=== PATIENT | male | born 1980 | race Caucasian/White ===

== ENCOUNTER 2021-06-22 14:01 | Observation (INO) | payer OTHER ==
[2021-06-22] MEDS ORDERED: SODIUM CHLORIDE 0.9% 1,000 ML IV STA (15:05)
--- NOTE | 2021-06-22 15:06 | ED ---
General Adult HPI - General Chief complaint: Syncope Stated complaint: syncope Time Seen by Provider: 06/22/21 14:33 Source: patient Mode of arrival: EMS Limitations: no limitations - History of Present Illness Initial comments: 41-year-old male without any significant past medical history presents to the emergency room for a chief complaint of syncope. Patient states that he was walking home from the store and passed out several times. His significant other states he passed out and came to and tried to stand and passed out again. States this happened about 4 times. Patient did not have any chest pain at that time but did have chest pressure radiating to his back a few days ago. Patient is a smoker but does not see a doctor so was not sure of any other medical history. Patient also states he has been sick. He has been coughing and conge sted and is concerned he could've COVID-19 as he has been exposed.Patient has no other complaints at this time including shortness of breath, chest pain, abdominal pain, nausea or vomiting, headache, or visual changes. - Related Data Allergies Allergy/AdvReac Type Severity Reaction Status Date / Time No Known Allergies Allergy Verified 06/22/21 14:08 Review of Systems ROS Statement: Those systems with pertinent positive or pertinent negative responses have been documented in the HPI. ROS Other: All systems not noted in ROS Statement are negative. Past Medical History Past Medical History: No Reported History History of Any Multi-Drug Resistant Organisms: None Reported Past Surgical History: Back Surgery Past Psychological History: No Psychological Hx Reported Smoking Status: Current every day smoker Past Alcohol Use History: None Reported Past Drug Use History: Marijuana General Exam Limitations: no limitations General appearance: alert, in no apparent distress Head exam: Present: atraumatic Eye exam: Present: normal appearance, PERRL, EOMI. Absent: scleral icterus, conjunctival injection ENT exam: Present: normal exam, mucous membranes moist Neck exam: Present: normal inspection, full ROM. Absent: tenderness Respiratory exam: Present: normal lung sounds bilaterally. Absent: respiratory distress, wheezes Cardiovascular Exam: Present: regular rate, normal rhythm, normal heart sounds GI/Abdominal exam: Present: soft, normal bowel sounds. Absent: distended, tenderness Course Vital Signs 06/22/21 14:03 Temperature 97.0 F L Pulse Rate 82 Respiratory 18 Rate Blood Pressure 114/79 O2 Sat by Pulse 100 Oximetry EKG Findings - EKG Comments: EKG Findings:: Normal sinus rhythm, ventricular rate 72, LA interval 142, QTC 492 Medical Decision Making - Medical Decision Making vitals are stable. Patient is well appearing. CBC and CMP are unremarkable. COVID-19 is detected. EKG however did show T-wave inversions in the lateral and inferior leads. Chest x-ray shows no acute cardiopulmonary process. Given significant EKG abnormalities and multiple episodes of syncope patient will be admitted for cardiology consultation and echocardiogram. Case discussed and admission accepted by Dr. Tena - Lab Data Result diagrams: 06/22/21 15:11 06/22/21 15:11 Lab Results 06/22/21 06/22/21 06/22/21 Range/Units 15:11 15:11 15:11 WBC 8.9 (3.8-10.6) k/uL RBC 5.91 H (4.30-5.90) m/uL Hgb 17.0 (13.0-17.5) gm/dL Hct 50.8 (39.0-53.0) % MCV 86.1 (80.0-100.0) fL MCH 28.8 (25.0-35.0) pg MCHC 33.5 (31.0-37.0) g/dL RDW 12.5 (11.5-15.5) % Plt Count 366 (150-450) k/uL MPV 6.9 Neutrophils % 75 % Lymphocytes % 19 % Monocytes % 4 % Eosinophils % 1 % Basophils % 0 % Neutrophils # 6.6 (1.3-7.7) k/uL Lymphocytes # 1.7 (1.0-4.8) k/uL Monocytes # 0.3 (0-1.0) k/uL Eosinophils # 0.1 (0-0.7) k/uL Basophils # 0.0 (0-0.2) k/uL PT 10.5 (9.0-12.0) sec INR 1.0 (<1.2) APTT 22.1 (22.0-30.0) sec D-Dimer 0.37 (<0.60) mg/L FEU Sodium 138 (137-145) mmol/L Potassium 5.1 (3.5-5.1) mmol/L Chloride 102 (98-107) mmol/L Carbon Dioxide 23 (22-30) mmol/L Anion Gap 13 mmol/L BUN 17 (9-20) mg/dL Creatinine 1.14 (0.66-1.25) mg/dL Est GFR (CKD-EPI)AfAm >90 (>60 ml/min/1.73 sqM) Est GFR (CKD-EPI)NonAf 79 (>60 ml/min/1.73 sqM) Glucose 134 H (74-99) mg/dL Calcium 9.8 (8.4-10.2) mg/dL Total Bilirubin 0.5 (0.2-1.3) mg/dL AST 33 (17-59) U/L ALT 34 (4-49) U/L Alkaline Phosphatase 88 (38-126) U/L Troponin I (0.000-0.034) ng/mL Total Protein 7.7 (6.3-8.2) g/dL Albumin 4.7 (3.5-5.0) g/dL Coronavirus (PCR) (Not Detectd) 06/22/21 06/22/21 Range/Units 15:11 15:11 WBC (3.8-10.6) k/uL RBC (4.30-5.90) m/uL Hgb (13.0-17.5) gm/dL Hct (39.0-53.0) % MCV (80.0-100.0) fL MCH (25.0-35.0) pg MCHC (31.0-37.0) g/dL RDW (11.5-15.5) % Plt Count (150-450) k/uL MPV Neutrophils % % Lymphocytes % % Monocytes % % Eosinophils % % Basophils % % Neutrophils # (1.3-7.7) k/uL Lymphocytes # (1.0-4.8) k/uL Monocytes # (0-1.0) k/uL Eosinophils # (0-0.7) k/uL Basophils # (0-0.2) k/uL PT (9.0-12.0) sec INR (<1.2) APTT (22.0-30.0) sec D-Dimer (<0.60) mg/L FEU Sodium (137-145) mmol/L Potassium (3.5-5.1) mmol/L Chloride (98-107) mmol/L Carbon Dioxide (22-30) mmol/L Anion Gap mmol/L BUN (9-20) mg/dL Creatinine (0.66-1.25) mg/dL Est GFR (CKD-EPI)AfAm (>60 ml/min/1.73 sqM) Est GFR (CKD-EPI)NonAf (>60 ml/min/1.73 sqM) Glucose (74-99) mg/dL Calcium (8.4-10.2) mg/dL Total Bilirubin (0.2-1.3) mg/dL AST (17-59) U/L ALT (4-49) U/L Alkaline Phosphatase (38-126) U/L Troponin I <0.012 (0.000-0.034) ng/mL Total Protein (6.3-8.2) g/dL Albumin (3.5-5.0) g/dL Coronavirus (PCR) Detected A (Not Detectd) Disposition Clinical Impression: COVID-19, EKG abnormalities, Syncope Disposition: ADMITTED IP TO THIS HOSP Is patient prescribed a controlled substance at d/c from ED?: No Referrals: None,Stated [Primary Care Provider] - 1-2 days Time of Disposition: 16:55
[2021-06-22 15:31] LABS: Basophils % (A) 0 %; Eosinophils # (A) 0.1 k/uL (0-0.7); Eosinophils % (A) 1 %; HCT 50.8 % (39.0-53.0); Lymphocytes # (A) 1.7 k/uL (1.0-4.8); Lymphocytes % (A) 19 %; MCH 28.8 pg (25.0-35.0); MCHC 33.5 g/dL (31.0-37.0); MCV 86.1 fL (80.0-100.0); Mean Platelet Volume 6.9; Monocytes # (A) 0.3 k/uL (0-1.0); Monocytes % (A) 4 %; Neutrophils # (A) 6.6 k/uL (1.3-7.7); Neutrophils % (A) 75 %; Platelet Count 366 k/uL (150-450); RBC 5.91 m/uL (4.30-5.90); RDW 12.5 % (11.5-15.5); WBC 8.9 k/uL (3.8-10.6)
[2021-06-22 15:41] LABS: Partial Thromboplastin Time 22.1 sec (22.0-30.0); Prothrombin Time 10.5 sec (9.0-12.0)
[2021-06-22 15:47] LABS: ALT 34 U/L (4-49); African American GFR (CKD) >90 (>60 ml/min/1.73 sqM); Albumin 4.7 g/dL (3.5-5.0); Anion Gap 13 mmol/L; Blood Urea Nitrogen 17 mg/dL (9-20); Calcium 9.8 mg/dL (8.4-10.2); Carbon Dioxide 23 mmol/L (22-30); Chloride 102 mmol/L (98-107); Glucose 134 mg/dL (74-99); Non-African American GFR(CKD) 79 (>60 ml/min/1.73 sqM); Sodium 138 mmol/L (137-145); Total Bilirubin 0.5 mg/dL (0.2-1.3); Total Protein 7.7 g/dL (6.3-8.2)
[2021-06-22 15:51] LABS: AST 33 U/L (17-59); Alkaline Phosphatase 88 U/L (38-126); Potassium 5.1 mmol/L (3.5-5.1)
--- NOTE | 2021-06-22 15:52 | XR ---
EXAMINATION TYPE: XR chest 2V DATE OF EXAM: 06/22/2021 COMPARISON: NONE HISTORY: Chest pain TECHNIQUE: Frontal and lateral views of the chest are obtained. FINDINGS: There is no focal air space opacity. No evidence for pneumothorax. No pleural effusion. The cardiac silhouette size is within normal limits. The osseous structures are grossly intact. IMPRESSION: 1. No acute cardiopulmonary process.
[2021-06-22] MEDS ORDERED: ACETAMINOPHEN TAB 325 MG TAB PO PRN (16:55)
[2021-06-22] MEDS ORDERED: NALOXONE 0.4 MG/ML 1 ML VIAL IV PRN (16:55)
[2021-06-22] MEDS ORDERED: ASPIRIN 81 MG PO STA (16:58)
[2021-06-22] MEDS ORDERED: DEXAMETHASONE SOD PHOSPHATE 10 MG/ML 1 ML VIAL IVP STA (16:59)
[2021-06-22] MEDS: SODIUM CHLORIDE 0.9% 1,000 ML IV SCH (17:34)
[2021-06-22] MEDS ORDERED: ALPRAZolam 0.25 MG TAB PO PRN (17:43)
[2021-06-22] MEDS ORDERED: HYDROcodone/APAP 5-325MG 1 EACH TAB PO PRN (17:43)
[2021-06-22 18:18] LABS: C Reactive Protein <0.5 mg/dL (<1.0); LDH 375 U/L (313-618)
--- NOTE | 2021-06-22 18:25 | HP ---
HISTORY AND PHYSICAL DATE OF SERVICE: 06/22/2021 CHIEF COMPLAINT: Covid 19 and syncope. HISTORY OF PRESENT ILLNESS: This 41-year-old gentleman with a past medical history of no significant injury except back surgery, not being followed by any primary physician in the outpatient setting, was complaining of cough and sputum and other symptoms for the last several days. Patient diagnosed with Covid about a week ago. The patient was apparently going to the store and when walking back home, the patient passed out at least 4 times and the patient came to [facility] and was admitted for further evaluation and treatment. There is no history of fever, rigors or chills. No history of headache, loss of consciousness, seizures. The patient is unvaccinated. The initial evaluation showed CBC was within normal limits. Glucose 138. Covid 19 was positive. The pulse ox was also 100%, 98% on room air. The patient also had a chest x-ray which I reviewed personally showed some evidence of increased bronchovascular markings and D- dimer was 0.37 and the patient was admitted for further evaluation and treatment. The EKG interestingly showed diffuse ST-T changes and as well as non-progression R-wave suggestive of possibly myocarditis related to Covid 19. There is no history of fever, rigors, chills at this time. PAST MEDICAL HISTORY: History of back surgery, history of nicotine dependence. MEDICATIONS: Medications prior to admission include none. ALLERGIES: None. FAMILY HISTORY: No history of heart disease or strokes in the family. SOCIAL HISTORY: History of smoking, history of THC. No history of alcohol intake. REVIEW OF SYSTEMS: ENT: No diminished vision. No diminished hearing. CARDIOVASCULAR system: Mentioned earlier. RESPIRATION: As mentioned earlier. GI: No nausea or vomiting. : No dysuria. NERVOUS SYSTEM: No numbness or weakness. ALLERGY/IMMUNOLOGY: No asthma or hayfever. MUSCULOSKELETAL: As mentioned earlier. HEMATOLOGY/ONCOLOGY: No history of anemia. ENDOCRINE: As mentioned earlier. CONSTITUTIONAL: As mentioned earlier. DERMATOLOGY negative. RHEUMATOLOGY negative. PSYCHIATRY negative. PHYSICAL EXAMINATION: Alert and oriented x3. Pulse is 82, blood pressure 114/79, respiration 18, temperature 97 degrees, pulse ox 100 percent on room air. HEENT: Conjunctivae normal. NECK is no JVD. CARDIOVASCULAR: S1, S2. RESPIRATIONS: Breath sounds diminished in the bases. No rhonchi. No crackles. ABDOMEN: Soft, nontender. LEGS: No edema. No swelling. NERVOUS SYSTEM: Higher functions as mentioned earlier. Moves all 4 limbs. No focal motor or sensory deficits. LYMPHATICS: No lymph nodes palpable in the neck, axillae or groin. LAB: Investigations at this time show WBC 8.9, hemoglobin 17, otherwise sodium 130, potassium 5.2. Glucose 134. Covid 19 is positive. EKG personally reviewed. ASSESSMENT: 1. Acute Covid 19 infection with syncope possible myocarditis. 2. Rule out pulmonary embolism. 3. Increased random glucose. 4. History of back surgery. 5. History of nicotine dependence. 6. History of THC. 7. FULL CODE. RECOMMENDATIONS AND DISCUSSION: In this 41-year-old gentleman who presented with multiple complex medical issues, at this time, I recommend to continue current medication. I would recommend 2D echo with Doppler. Complete set of troponins. bedrest. Cardiology consultation. Overall prognosis guarded because of multiple complex medical issues as mentioned earlier. I would also recommend a CT angio because high clinical suspicion even though D- dimer is negative. Prognosis guarded. I also recommend the patient to follow up with primary physician, Cardiology, in the outpatient setting. The patient's family understands and agrees. Further recommendations to follow. MMODL / IJN: [id number] / MTDD
--- NOTE | 2021-06-22 19:28 | CT ---
EXAMINATION TYPE: CT angio chest DATE OF EXAM: 06/22/2021 6:50 PM COMPARISON: None HISTORY: Covid +, syncope CT DLP: 362.6 mGycm Automated exposure control for dose reduction was used. CONTRAST: CTA scan of the thorax is performed with IV Contrast, patient injected with 100 mL of Isovue 300, pul monary embolism protocol. FINDINGS: Significant respiratory motion limits evaluation for small lung nodule and evaluation of the segmenta l and subsegmental pulmonary arteries. LUNGS: The lungs are grossly clear, there is no concerning parenchymal mass or nodule identified. T here is no pleural effusion or pneumothorax seen. The tracheobronchial tree is patent. MEDIASTINUM: There is satisfactory enhancement of the pulmonary artery and its branches, there is no CT evidence for pulmonary embolism. There are no greater than 1 cm hilar or mediastinal lymph nodes. No cardiomegaly or pericardial effusion is seen. Thyroid gland is unremarkable. The upper abdomen is unremarkable. Degenerative changes are seen in the spine. No acute osseous abnormality. IMPRESSION: 1. SUBOPTIMAL OPACIFICATION OF THE SEGMENTAL AND SUBSEGMENTAL PULMONARY ARTERIES DUE TO PATIENT-CANNO T DEFINITELY EXCLUDE A SMALL PULMONARY ARTERIAL EMBOLISM THOUGH NONE ARE SEEN. 2. NO FILLING DEFECTS ARE SEEN IN THE PULMONARY TRUNK, RIGHT OR LEFT PULMONARY ARTERIES OR LOBAR ANTOINE HAZEL. 3. NO EVIDENCE FOR ACUTE INTRATHORACIC ABNORMALITY.
[2021-06-22] MEDS: CHOLECALCIFEROL 25 MCG (1000 IU) TABLET PO SCH (19:57)
[2021-06-22] MEDS: ENOXAPARIN 40 MG/0.4 ML SYRINGE SQ SCH (19:57)
[2021-06-22] MEDS: NICOTINE 14MG/24HR PATCH TRANSDERM SCH (21:32)
[2021-06-23] MEDS: SODIUM CHLORIDE 0.9% 1,000 ML IV SCH ×2 (02:31→20:21)
[2021-06-23] MEDS: DEXAMETHASONE SOD PHOSPHATE 10 MG/ML 1 ML VIAL IVP SCH (08:15)
[2021-06-23] MEDS: ENOXAPARIN 40 MG/0.4 ML SYRINGE SQ SCH (08:16)
[2021-06-23] MEDS: NICOTINE 14MG/24HR PATCH TRANSDERM SCH ×2 (08:16→08:34)
[2021-06-23] MEDS: CHOLECALCIFEROL 25 MCG (1000 IU) TABLET PO SCH ×2 (08:17→18:02)
[2021-06-23 08:27] LABS: Basophils % (A) 0 %; Eosinophils % (A) 0 %; HCT 43.2 % (39.0-53.0); HGB 14.1 gm/dL (13.0-17.5); Lymphocytes # (A) 1.5 k/uL (1.0-4.8); Lymphocytes % (A) 11 %; MCH 28.1 pg (25.0-35.0); MCHC 32.7 g/dL (31.0-37.0); MCV 85.7 fL (80.0-100.0); Mean Platelet Volume 6.9; Monocytes # (A) 0.6 k/uL (0-1.0); Monocytes % (A) 4 %; Neutrophils % (A) 84 %; Platelet Count 379 k/uL (150-450); RBC 5.04 m/uL (4.30-5.90); RDW 12.3 % (11.5-15.5); WBC 14.3 k/uL (3.8-10.6)
[2021-06-23 08:33] VITALS: RESP 16
[2021-06-23 08:33] LABS: African American GFR (CKD) >90 (>60 ml/min/1.73 sqM); Anion Gap 6 mmol/L; Blood Urea Nitrogen 13 mg/dL (9-20); Calcium 9.6 mg/dL (8.4-10.2); Carbon Dioxide 23 mmol/L (22-30); Chloride 107 mmol/L (98-107); Glucose 174 mg/dL (74-99); Non-African American GFR(CKD) >90 (>60 ml/min/1.73 sqM); Potassium 4.2 mmol/L (3.5-5.1); Sodium 136 mmol/L (137-145)
--- NOTE | 2021-06-23 09:31 | P.CRDCN ---
History of Present Illness Consult date: 06/23/21 Chief complaint: Syncope History of present illness: The patient is a 41-year-old gentleman with a past medical history significant for smoking was admitted to the hospital with syncope. He stated that he was in his usual state of health yesterday when he was walking from the store to his home when he suddenly lost his consciousness. No warning symptoms like any warm feeling in the face or any symptoms of dizziness or lightheadedness. He states that this episode did not happen before and that's the first time. Few weeks ago he was experiencing symptoms of chest discomfort. He stated that he woke up from sleep complaining of discomfort in the middle of the chest as a pressure on the chest without any radiation to the arms or neck or shoulders or back. The symptoms of chest discomfort lasted for 24 hours and at that point he did not seek any medical attention. No established history of coronary artery disease or congestive heart failure or cardiac arrhythmia. His major risk factors is smoking only and he smokes cigarettes as well as marijuana. No fever and no chills and no cough or sputum production. The patient was tested positive for COVID-19 infection and currently he is on isolation. He underwent a workup including an EKG showing sinus rhythm with T-wave inversion in the anterolateral leads quite concerning for severe underlying coronary artery disease. Unfortunately there is no old EKG to compare to this one. The troponin is unremarkable. He underwent for some reasons a computed tomography scan of the c hest and the report stated "cannot exclude small pulmonary embolism". No large PE was seen in the pulmonary trunks. Currently the patient is not having any symptoms of chest pain or chest discomfort. Past Medical History Past Medical History: No Reported History History of Any Multi-Drug Resistant Organisms: None Reported Past Surgical History: Back Surgery Past Anesthesia/Blood Transfusion Reactions: No Reported Reaction Past Psychological History: No Psychological Hx Reported Smoking Status: Current every day smoker Past Alcohol Use History: None Reported Past Drug Use History: Marijuana Medications and Allergies Home Medications Medication Instructions Recorded Confirmed Type No Known Home Medications 06/22/21 06/22/21 History Allergies Allergy/AdvReac Type Severity Reaction Status Date / Time No Known Allergies Allergy Verified 06/22/21 18:16 Physical Exam Vitals: Vital Signs Temp Pulse Pulse Resp BP BP BP 06/23/21 08:00 98.0 F 84 16 146/90 157/91 06/23/21 03:18 97.6 F 84 18 06/23/21 02:00 18 06/22/21 23:58 97.6 F 99 18 06/22/21 22:00 104 H 18 06/22/21 21:52 98.1 F 100 18 06/22/21 20:00 97.3 F L 87 18 06/22/21 17:41 97.8 F 61 18 152/94 06/22/21 15:45 84 18 124/82 06/22/21 14:03 97.0 F L 82 18 114/79 BP BP Pulse Ox 06/23/21 08:00 127/77 100 06/23/21 03:18 128/65 96 06/23/21 02:00 06/22/21 23:58 135/74 96 06/22/21 22:00 06/22/21 21:52 141/85 96 06/22/21 20:00 96 06/22/21 17:41 98 06/22/21 15:45 98 06/22/21 14:03 100 Intake and Output 06/22/21 06/23/21 06/23/21 22:59 06:59 14:59 Intake Total 75 624 Balance 75 624 Intake: Intake, IV Titration 75 150 Amount Sodium Chloride 0.9% 1, 75 150 000 ml @ 75 mls/hr IV . [id number] [facility] Rx#:[id number] Oral 474 Other: # Voids 1 Weight 81.647 kg - Constitutional General appearance: no acute distress - Respiratory Respiratory: bilateral: CTA - Cardiovascular Rhythm: regular Heart sounds: normal: S1, S2 Results 06/23/21 07:56 06/23/21 07:56 Cardiac Enzymes 06/22/21 06/22/21 06/22/21 Range/Units 15:11 15:11 17:30 AST 33 (17-59) U/L Lactate Dehydrogenase (313-618) U/L Troponin I <0.012 <0.012 (0.000-0.034) ng/mL 06/22/21 06/22/21 Range/Units 17:30 22:33 AST (17-59) U/L Lactate Dehydrogenase 375 (313-618) U/L Troponin I <0.012 (0.000-0.034) ng/mL Coagulation 06/22/21 Range/Units 15:11 PT 10.5 (9.0-12.0) sec APTT 22.1 (22.0-30.0) sec CBC 06/22/21 06/23/21 Range/Units 15:11 07:56 WBC 8.9 14.3 H (3.8-10.6) k/uL RBC 5.91 H 5.04 (4.30-5.90) m/uL Hgb 17.0 14.1 (13.0-17.5) gm/dL Hct 50.8 43.2 (39.0-53.0) % Plt Count 366 379 (150-450) k/uL Comprehensive Metabolic Panel 06/22/21 06/23/21 Range/Units 15:11 07:56 Sodium 138 136 L (137-145) mmol/L Potassium 5.1 4.2 (3.5-5.1) mmol/L Chloride 102 107 (98-107) mmol/L Carbon Dioxide 23 23 (22-30) mmol/L BUN 17 13 (9-20) mg/dL Creatinine 1.14 0.75 (0.66-1.25) mg/dL Glucose 134 H 174 H (74-99) mg/dL Calcium 9.8 9.6 (8.4-10.2) mg/dL AST 33 (17-59) U/L ALT 34 (4-49) U/L Alkaline Phosphatase 88 (38-126) U/L Total Protein 7.7 (6.3-8.2) g/dL Albumin 4.7 (3.5-5.0) g/dL Current Medications Generic Name Dose Route Start Last Admin Trade Name Freq PRN Reason Stop Dose Admin Acetaminophen 650 mg 06/22/21 16:55 Acetaminophen Tab 325 Mg Tab PO Q6HR PRN Mild Pain or Fever > 100.5 Hydrocodone Bitart/Acetaminophen 1 each 06/22/21 17:43 Hydrocodone/Apap 5-325mg 1 Each Tab PO Q6HR PRN Pain Alprazolam 0.25 mg 06/22/21 17:43 Alprazolam 0.25 Mg Tab PO TID PRN Anxiety Cholecalciferol 25 mcg 06/22/21 17:45 06/23/21 08:17 Cholecalciferol 25 Mcg (1000 Iu) Tablet PO 25 mcg DAILY HAIM Administration Dexamethasone Sodium Phosphate 6 mg 06/23/21 09:00 06/23/21 08:15 Dexamethasone Sod Phosphate 10 Mg/Ml 1 Ml Vial IVP 6 mg DAILY HAIM Administration Enoxaparin Sodium 40 mg 06/22/21 17:45 06/23/21 08:16 Enoxaparin 40 Mg/0.4 Ml Syringe SQ 40 mg DAILY HAIM Administration Sodium Chloride 1,000 mls @ 75 mls/hr 06/22/21 17:00 06/23/21 02:31 Saline 0.9% IV 75 mls/hr .[id number] HAIM Administration Naloxone HCl 0.2 mg 06/22/21 16:55 Naloxone 0.4 Mg/Ml 1 Ml Vial IV Q2M PRN Opioid Reversal Nicotine 1 patch 06/22/21 17:45 06/23/21 08:34 Nicotine 14mg/24hr Patch TRANSDERM Not Given DAILY HAIM Intake and Output 06/22/21 06/23/21 06/23/21 22:59 06:59 14:59 Intake Total 75 624 Balance 75 624 Intake: Intake, IV Titration 75 150 Amount Sodium Chloride 0.9% 1, 75 150 000 ml @ 75 mls/hr IV . [id number] [facility] Rx#:[id number] Oral 474 Other: # Voids 1 Weight 81.647 kg 06/23/21 07:56 06/23/21 07:56 Assessment and Plan Assessment: Assessment #1 syncopal episode #2 abnormal EKG concerning for severe CAD #3 chest discomfort #4 COVID-19 infection #5 significant history of smoking Plan #1 acute coronary event was ruled out. The serial enzymes are unremarkable #2 follow-up on the echocardiogram to assess for wall motion abnormalities #3 further recommendation to follow the echocardiogram #4 continue aspirin #5 start the patient on Toprol-XL #6 watch for arrhythmia Thank you for allowing us participate in his care we will continue following up with the patient
[2021-06-23] MEDS ORDERED: CALCIUM CARBONATE 500 MG CHEWABLE PO PRN (09:49)
[2021-06-23] MEDS ORDERED: ASPIRIN 325 MG TAB PO STA (11:45)
[2021-06-23] MEDS ORDERED: LIDOCAINE 1% INJ 10MG/ML (20 ML MDV) ONE (11:52)
[2021-06-23] MEDS ORDERED: VERAPAMIL 2.5 MG/ML 2 ML AMP ONE (11:52)
[2021-06-23] MEDS: PANTOPRAZOLE 40 MG/10 ML VIAL IVP SCH ×2 (11:54→20:20)
--- NOTE | 2021-06-23 12:00 | ECHOF ---
Referral Reason:syncope MEASUREMENTS -------- HEIGHT: 170.2 cm WEIGHT: 81.6 kg BP: RVIDd: 3.3 cm (< 3.3) IVSd: 1.3 cm (0.6 - 1.1) LVIDd: 4.8 cm (3.9 - 5.3) LVPWd: 1.8 cm (0.6 - 1.1) IVSs: 1.6 cm LVIDs: 3.2 cm LVPWs: 2.2 cm FINDINGS -------- Sinus rhythm. Limited Echo due to Covid 19 exposure. Overall left ventricular systolic function is normal with, an EF between 55 - 60 %. CONCLUSIONS -------- 1. Overall left ventricular systolic function is normal with, an EF between 55 - 60 %. WATER TECHNICIAN: Amirah Young RDCS
[2021-06-23] MEDS ORDERED: IV FLUID CONTINUATION 825 ML IV ONE (12:30)
[2021-06-23] MEDS ORDERED: MIDAZOLAM 2 MG/2 ML VIAL IVP ONE (12:37)
[2021-06-23] MEDS ORDERED: LIDOCAINE 1% INJ 10MG/ML (20 ML MDV) SQ ONE ×2 (12:40→12:41)
[2021-06-23] MEDS: VERAPAMIL SYRINGE (5 MG/10 ML) INTRAARTER ONE ×2 (12:42→12:53)
[2021-06-23] MEDS ORDERED: HEPARIN SODIUM 1,000 UN/ML (10ML VL) IVP ONE (12:43)
[2021-06-23] MEDS ORDERED: IOPAMIDOL-370 125ML BTL INJ ONE (12:54)
[2021-06-23] MEDS ORDERED: RX INFO: IV CONTRAST WAS GIVEN 1 EACH MISC MISCELLANE PRN (13:01)
[2021-06-23] MEDS ORDERED: SODIUM CHLORIDE 0.9% 1,000 ML IV SCH (13:15)
--- NOTE | 2021-06-23 14:23 | CC ---
CARDIAC CATHETERIZATION REPORT DATE OF PROCEDURE: 06/23/2021 PERFORMING PHYSICIAN: Titi John M.D. PROCEDURES PERFORMED: 1. Selective right and left coronary angiogram. 2. Left heart catheterization. INDICATION: This is a pleasant 41-year-old gentleman who was admitted to the hospital with chest discomfort and syncope. He underwent an EKG which showed abnormalities concerning for severe underlying coronary artery disease. The EKG showed T-wave inversion and biphasic T-waves in the anterolateral leads. APPROACH: Right radial artery. COMPLICATIONS: None. LEVEL OF SEDATION: Moderate, with sedation length of 12 minutes. PROCEDURE DESCRIPTION: After obtaining informed consent, the patient was brought to the cardiac cathode maker. The right radial artery was cannulated using micropuncture technique under ultrasound guidance. The micropuncture wire passed easily. Then I placed Dictation ends here abruptly. MMODL / IJN: [id number] /
--- NOTE | 2021-06-23 14:38 | CC ---
CARDIAC CATHETERIZATION REPORT DATE OF PROCEDURE: 06/23/2021 PERFORMING PHYSICIAN: Titi John M.D. PROCEDURES PERFORMED: 1. Selective right and left coronary angiogram. 2. Left heart catheterization. INDICATION: This is a 41-year-old gentleman with significant history of smoking who was admitted to the hospital with syncope concerning for cardiac syncope. He also was experiencing chest discomfort concerning for angina. He underwent an EKG which showed T-wave inversion and biphasic T-wave across the chest leads. In light of that and to rule out severe CAD, heart catheterization was advised. APPROACH: Right radial artery. COMPLICATIONS: None. LEVEL OF SEDATION: Moderate, with sedation length of 12 minutes. PROCEDURE DESCRIPTION: After obtaining informed consent, the patient was brought to the cardiac crime laboratory analyst. The right radial artery was cannulated using micropuncture technique. The micropuncture wire passed easily. Then I placed a 6-Serbian sheath in the right radial artery. I gave the patient 2 mg of verapamil IA and 6000 units of heparin IV. Selective right and left coronary angiogram was performed with JR4 and JL3.5 catheters. Left heart catheterization was performed using the JR4 catheter, which crossed the aortic valve. Then I did pull back across the valve. The procedure was completed without any complication. SELECTIVE CORONARY ANGIOGRAM: 1. The right coronary artery is a large-caliber vessel and it is a dominant vessel. The RCA has mild disease proximally. The mid RCA appeared to have mild disease as well. The RCA distally appeared to have mild disease as well and bifurcates into PDA and PLV branches. The PLV branch gives collateral which seems to be a bridging collateral to the left circumflex distally. 2. The left main is a large left main. Angiographically normal. It trifurcates into left circumflex, ramus intermedius and left anterior descending artery. 3. The left circumflex is a large-caliber vessel. It is a nondominant vessel. The proximal left circumflex appeared to have mild disease only. It gives rise to the first obtuse marginal branch, which appeared to have mild disease only, and the left circumflex at that segment appeared to make a turn and distally is occluded and fills by collaterals from the right coronary artery. 4. The ramus intermedius is a large-caliber vessel and seems to have mild disease only. 5. The LAD. The proximal LAD appeared to be angiographically normal. It gives rise to the first and second diagonal branches; both appeared to have mild disease only. The mid and distal LAD appeared to be angiographically normal. 6. HEMODYNAMICS: The LVEDP was 10 to 12 mmHg without significant gradient across the aortic valve. CONCLUSION: 1. Occluded distal left circumflex. The distal left circumflex fills by collateral which seems to be a bridging collateral from the right coronary artery. 2. Normal left-sided filling pressure. POST-PROCEDURE MANAGEMENT: 1. Maximize medical treatment. 2. Aggressive cholesterol control. 3. Risk factor modifications. 4. Follow up with the patient. MMGARY / IJN: [id number] /
[2021-06-23] MEDS: ASCORBIC ACID 500 MG TAB PO SCH ×2 (16:22→20:20)
[2021-06-23] MEDS: ZINC SULFATE 220 MG CAP PO SCH (18:02)
--- NOTE | 2021-06-23 18:38 | PN ---
PROGRESS NOTE DATE OF SERVICE: 06/23/2021 This 41-year-old gentleman who was admitted with acute COVID-19 infection and syncope has possibly myocarditis. Patient had diffuse ST-T segment changes. Cardiology saw the patient and a 2D echo with Doppler showed ejection fraction about 55% to 60%, which was limited. Cardiology performed cardiac catheterization. The patient also had some minimal chest discomfort. The cardiac cath showed occluded distal left circumflex. Collaterals are seen. Maximized medical treatment was recommended. Patient is being closely monitored. There is no history of any fever, rigors or chills. Past medical history reviewed. REVIEW OF SYSTEMS: CARDIOVASCULAR SYSTEM: As mentioned earlier. RESPIRATION: As mentioned earlier. GI: As mentioned earlier. : No dysuria. NERVOUS SYSTEM: No numbness, weakness. CURRENT MEDICATIONS: Reviewed. They include Tylenol, [place], Xanax, vitamin C, Tums, vitamin D3. Doses and other medications are reviewed. PHYSICAL EXAMINATION: Patient alert and oriented x3. Pulse 47, blood pressure 158/83, respirations 16, temperature normal, pulse ox 98% on room air. HEENT: Conjunctivae normal. NECK: No jugular venous distention. CARDIOVASCULAR: S1, S2 muffled. RESPIRATION: Breath sounds diminished at the bases. A few scattered rhonchi. ABDOMEN: Soft, nontender. LEGS: No edema. No swelling. NERVOUS SYSTEM: No focal deficit. LAB STUDIES: WBC 14.3, hemoglobin 14.1. Sodium 136, potassium 4.2. ASSESSMENT: 1. Acute COVID-19 infection with syncope. Rule out myocarditis or cardiac arrhythmia. 2. Status post cardiac catheterization showing occluded distal left circumflex, collaterals; possible coronary disease. On medical treatment. 3. Increased random glucose. 4. Pulmonary embolism ruled out. 5. History of back surgery. 6. History of nicotine dependence. 7. History of THC. 8. FULL CODE. RECOMMENDATIONS AND DISCUSSION: I recommend to continue current medications, continue with the monitoring, symptomatic treatment. I recommend to follow closely with Cardiology. Maximum medical treatment. Usual medications of COVID-19. The CT angio was personally reviewed by me; it showed currently no evidence of any pulmonary embolism. Patient also has no evidence of any pneumonia, either. The prognosis is guarded. Further recommendations to follow. See orders for further details. Recommend close followup with primary physician in the outpatient setting. MMODL / IJN: [id number] /
[2021-06-24] MEDS: SODIUM CHLORIDE 0.9% 1,000 ML IV SCH (07:01)
[2021-06-24] MEDS ORDERED: METOPROLOL SUCCINATE (ER) 25 MG TAB.ER.24H PO SCH (09:00)
[2021-06-24] MEDS: NICOTINE 14MG/24HR PATCH TRANSDERM SCH ×2 (09:45→11:28)
[2021-06-24] MEDS: CHOLECALCIFEROL 25 MCG (1000 IU) TABLET PO SCH (09:45)
[2021-06-24] MEDS: ZINC SULFATE 220 MG CAP PO SCH (09:45)
[2021-06-24] MEDS: ASCORBIC ACID 500 MG TAB PO SCH (09:45)
[2021-06-24] MEDS: ENOXAPARIN 40 MG/0.4 ML SYRINGE SQ SCH (09:46)
[2021-06-24] MEDS: DEXAMETHASONE SOD PHOSPHATE 10 MG/ML 1 ML VIAL IVP SCH (09:46)
[2021-06-24] MEDS: PANTOPRAZOLE 40 MG/10 ML VIAL IVP SCH (09:46)
--- NOTE | 2021-06-24 09:51 | P.CONS ---
History of Present Illness - Reason for Consult Consult date: 06/23/21 covid infection Requesting physician: Mariana Tena - Chief Complaint passed out x 1 day - History of Present Illness History of present illness : Patient is a 41-year male who is not recently for the COVID-19 patient was brought into the ER yesterday afternoon after apparently the patient did have a syncopal episode the patient said he was walking home from the store and passed out several times patient tried to stand and passed out again at that happened about 4 times for the patient was brought to the hospital for further evaluation but denies having any chest pain or any palpitation patient denies having any URI symptoms no shortness of breath no cough or sputum production no abdominal pain or diarrhea patient on presentation the hospital was afebrile patient was not hypoxic or need for supplemental oxygen did have a normal white count with no lymphopenia creatinine was normal he was observed normal he did have positive Covid test patient did have a chest x-ray that was negative for acute infiltrate CT angiogram was suboptimal no filling defect and lungs were clear no evidence of any gross clot opacity patient did have a cardiac catheterization with evidence of occluded distal left circumflex infectious he was consulted because of his positive Covid testing Review of system: CONSTITUTIONAL: Positive for weakness denies fever. EYES: No complaint. ENT: No complaint. RESPIRATORY: No complaint. CARDIOVASCULAR: As per history of present illness. GENITOURINARY: No complaint. GASTROINTESTINAL: No complaint. MUSCULOSKELETAL: No complaint. INTEGUMENTARY: No complaint. PSYCHOLOGIC: No complaint. ENDOCRINE: No complaint. NEUROLOGIC: No complaint. Past medical history : Reviewed, documented below Past surgical history : Reviewed, documented below Social history: Reviewed, documented below Medications: Reviewed, as documented below EXAMINATION: Vital sigans= Reviewed and documented below GENERAL DESCRIPTION: Middle-aged male lying in bed, no distress. No tachypnea or accessory muscle of respiration use. HEENT: Shows Pallor , no scleral icterus. Oral mucous membrane is dry. NECK: Trachea central, no thyromegaly. LUNGS: Unlabored breathing. Clear to auscultation anteriorly. No wheeze or crackle. HEART: S1, S2, regular rate and rhythm. ABDOMEN: Soft, no tenderness , guarding or rigidity EXTREMITIES: No edema of feet. SKIN: No rash, no masses palpable. NEUROLOGICAL: The patient is awake, alert, oriented x3, mood and affect normal. LABS AND RADIOLOGY: Reviewed results see below Assessment : Patient presented to hospital with multiple syncopal episodes more likely because of his cardiac etiology the patient also have a positive Covid test however the patient do not have any respiratory symptoms the patient is not febrile no hypoxemia chest x-ray and CT scan of the chest did not show any infiltrate with a question of possible false-positive versus Covid infection the patient will be cleared as evidence of any active infection Plan: 1-no need for steroids or remdesivir as the patient not hypoxic 2-May continue Lovenox zinc and ascorbic acid 3-droplet isolation We will follow on clinical condition and cultures to further adjust medication if needed Thank you for this consultation we will follow the patient along with you Past Medical History Past Medical History: No Reported History History of Any Multi-Drug Resistant Organisms: None Reported Past Surgical History: Back Surgery Past Anesthesia/Blood Transfusion Reactions: No Reported Reaction Past Psychological History: No Psychological Hx Reported Smoking Status: Current every day smoker Past Alcohol Use History: None Reported Past Drug Use History: Marijuana Medications and Allergies Home Medications Medication Instructions Recorded Confirmed Type No Known Home Medications 06/22/21 06/22/21 History Allergies Allergy/AdvReac Type Severity Reaction Status Date / Time No Known Allergies Allergy Verified 06/22/21 18:16 Physical Exam Vitals: Vital Signs Temp Pulse Pulse Pulse Resp BP BP 06/23/21 13:46 95 166/91 06/23/21 13:31 86 153/82 06/23/21 13:01 155/89 06/23/21 11:44 96.2 F L 72 16 06/23/21 08:00 98.0 F 84 16 06/23/21 03:18 97.6 F 84 18 06/23/21 02:00 18 06/22/21 23:58 97.6 F 99 18 06/22/21 22:00 104 H 18 06/22/21 21:52 98.1 F 100 18 06/22/21 20:00 97.3 F L 87 18 06/22/21 17:41 97.8 F 61 18 152/94 06/22/21 15:45 84 18 124/82 BP BP BP BP Pulse Ox 06/23/21 13:46 06/23/21 13:31 06/23/21 13:01 06/23/21 11:44 134/76 98 06/23/21 08:00 146/90 157/91 127/77 100 06/23/21 03:18 128/65 96 06/23/21 02:00 06/22/21 23:58 135/74 96 06/22/21 22:00 06/22/21 21:52 141/85 96 06/22/21 20:00 96 06/22/21 17:41 98 06/22/21 15:45 98 Intake and Output 06/23/21 06/23/21 06/23/21 06:59 14:59 22:59 Intake Total 624 365 Balance 624 365 Intake: IV 125 Intake, IV Titration 150 Amount Sodium Chloride 0.9% 1, 150 000 ml @ 75 mls/hr IV . [id number] [facility] Rx#:[id number] Oral 474 240 Other: # Voids 1 0 Results CBC & Chem 7: 06/23/21 07:56 06/23/21 07:56 Labs: Abnormal Lab Results - Last 24 Hours (Table) 06/22/21 06/22/21 06/23/21 Range/Units 15:11 17:30 07:56 WBC 14.3 H (3.8-10.6) k/uL Neutrophils # 12.0 H (1.3-7.7) k/uL Sodium (137-145) mmol/L Glucose 134 H (74-99) mg/dL Ferritin 341.0 H (22.0-322.0) ng/mL 06/23/21 Range/Units 07:56 WBC (3.8-10.6) k/uL Neutrophils # (1.3-7.7) k/uL Sodium 136 L (137-145) mmol/L Glucose 174 H (74-99) mg/dL Ferritin (22.0-322.0) ng/mL
[2021-06-24] MEDS ORDERED: ATORVASTATIN 40 MG TAB PO SCH (11:15)
[2021-06-24] MEDS ORDERED: ASPIRIN 81 MG PO SCH (11:15)
[2021-06-24 12:29] VITALS: BP 152/96; PULSE 73; TEMP 97.8
--- NOTE | 2021-06-24 13:39 | P.PN ---
Subjective HISTORY OF PRESENTING ILLNESS The patient is a 41-year-old gentleman with a past medical history significant for smoking was admitted to the hospital with syncope. He stated that he was in his usual state of health yesterday when he was walking from the store to his home when he suddenly lost his consciousness. No warning symptoms like any warm feeling in the face or any symptoms of dizziness or lightheadedness. He states that this episode did not happen before and that's the first time. Few weeks ago he was experiencing symptoms of chest discomfort. He stated that he woke up from sleep complaining of discomfort in the middle of the chest as a pressure on the chest without any radiation to the arms or neck or shoulders or back. The symptoms of chest discomfort lasted for 24 hours and at that point he did not seek any medical attention. No established history of coronary artery disease or congestive heart failure or cardiac arrhythmia. His major risk factors is smoking only and he smokes cigarettes as well as marijuana. No fever and no chills and no cough or sputum production. The patient was tested positive for COVID-19 infection and currently he is on isolation. He underwent a workup including an EKG showing sinus rhythm with T-wave inversion in the anterolateral leads quite concerning for severe underlying coronary artery disease. Unfortunately there is no old EKG to compare to this one. The troponin is unremarkable. He underwent for some reasons a computed tomography scan of the chest and the report stated "cannot exclude small pulmonary embolism". No large PE was seen in the pulmonary trunks. Currently the patient is not having any symptoms of chest pain or chest discomfort. 06/24 Patient denies any chest pain or pressure. No further lightheaded episodes. No significant events on telemetry. He did undergo heart catheterization yesterday which showed occlusion of the distal circumflex with collaterals from right to left. He is not having any significant angina-type symptoms. He was performed which shows preserved EF. PHYSICAL EXAMINATION Vital signs reviewed. CONSTITUTIONAL: No apparent distress. HEENT: Head is normocephalic. Pupils are equal, round. Sclerae anicteric. Mucous membranes of the mouth are moist. No JVD. No carotid bruit. CHEST EXAMINATION: Lungs are clear to auscultation. No chest wall tenderness is noted on palpation or with deep breathing. HEART EXAMINATION: Regular rate and rhythm. S1, S2 heard. No murmurs, gallops or rub. ABDOMEN: Soft, nontender. Positive bowel sounds. EXTREMITIES: 2+ peripheral pulses, no lower extremity edema and no calf tenderness. NEUROLOGIC EXAMINATION: Patient is awake, alert and oriented x3. Assessment #1 syncopal episode with multiple syncopal episodes in the past #2 abnormal EKG #3 chest discomfort #4 COVID-19 infection #5 significant history of smoking #6 CAD with occluded left circumflex with right to left collaterals Plan Continue with current medical regimen with aspirin, statin, beta belén. Discussed findings of occluded left circumflex with what appears to be right to left collaterals with patient. He is not having any angina-type symptoms currently and continue with medical therapy. Given underlying CAD and multiple syncopal episodes however would recommend 30 day event monitor on discharge and this may be performed an outpatient basis. Patient appears stable for discharge home. Follow-up in office in 1 week. Tobacco cessation. Objective - Vital Signs Vital signs: Vital Signs Temp 97.8 F 06/24/21 12:00 Pulse 73 06/24/21 12:00 Resp 16 06/24/21 12:00 BP 152/96 06/24/21 12:00 Pulse Ox 98 06/24/21 12:00 Intake & Output 06/23/21 06/24/21 06/24/21 18:59 06:59 18:59 Intake Total 725 240 Output Total 450 Balance 275 240 Weight 111.5 kg Intake: IV 125 Oral 600 240 Output: Urine 450 Other: # Voids 0 1 2 # Bowel Movements 1 - Labs CBC & Chem 7: 06/23/21 07:56 06/23/21 07:56
--- NOTE | 2021-06-24 17:48 | PN ---
PROGRESS NOTE DATE OF SERVICE: 06/24/2021 REASON FOR FOLLOWUP: Positive COVID test. INTERVAL HISTORY: The patient was seen on rounds this afternoon. The patient has been afebrile. The patient is currently breathing comfortably on room air. The patient denies having any chest pain, shortness of breath. Minimal cough. No abdominal pain. No diarrhea. The patient reported that he did have some URI and minimal respiratory symptoms a few weeks ago. PHYSICAL EXAMINATION: Blood pressure 152/96, pulse of , temperature 97.8. He is 98% on room air. General description is a middle-aged male lying in bed in no distress. Respiratory system: Unlabored breathing, clear to auscultation anteriorly. Heart S1, S2. Regular rate and rhythm. Abdomen soft, no tenderness. LABS: No new labs have been obtained today. DIAGNOSTIC IMPRESSION AND PLAN: Patient with positive COVID test in this patient; more likely recovering from recent COVID infection, currently with no evidence of any COVID pneumonia. He will not need any specific treatment for it. He has been advised to get COVID vaccination 90 days from now to prevent recurrent infection. Questions and concerns were answered. MMODL / IJN: [id number] /
--- NOTE | 2021-06-24 20:09 | DS ---
DISCHARGE SUMMARY DATE OF SERVICE: 06/24/2021 FINAL DIAGNOSES: 1. Acute Covid-19 infection with syncope, possible myocarditis versus cardiac arrhythmia. 2. Status post cardiac cath showing occluded distal left circumflex, collaterals, possibly CAD on medical treatment. 3. Increased random glucose. 4. Pulmonary embolism ruled out. 5. History of back surgery. 6. History of nicotine dependence. 7. History of THC. 8. FULL CODE. DISCHARGE DISPOSITION: The patient will be discharged in stable condition with guarded prognosis. HISTORY OF PRESENT ILLNESS: This 41-year-old gentleman with a past medical history of multiple medical problems was admitted with acute Covid-19 infection. The patient also had episode of syncope. Cardiac catheterization showed occluded left circumflex. Medical treatment recommended, possibility of myocarditis and cardiac arrhythmia also noted. The patient had a diffuse ST-T changes and T inversion in the EKG, but the 2D echo showed normal ejection fraction. Seen by multiple consultants. The patient is extremely keen on going home. Discharge cleared by Cardiology. Infectious Disease also saw the patient during the hospitalization. Dr. Estrada has recommended continue the current medication, treat symptomatically. EXAM: Vitals stable. Cardiovascular: S1, S2. Abdomen soft. Nervous system: No focal deficits. DISCHARGE DIET: Cardiac diet. FOLLOWUP: Follow up with Dr. Vasques in 2-3 days. Follow up with Cardiology as recommended. DISCHARGE MEDICATIONS: 1. Aspirin 81 mg p.o. daily. 2. Habitrol 14 daily. 3. Lipitor 40 mg daily. 4. Zinc 220 mg p.o. daily. 5. Metoprolol 25 mg p.o. daily. 6. Vitamin C 500 mg p.o. b.i.d. 7. Vitamin D3 50 mg mcg p.o. daily. Activity limited until followup. The patient discharged in stable condition with guarded prognosis. MMODL / IJN: [id number] /
== END 2021-06-24 16:00 | disposition home or self-care (01) ==
LOC: EC 14:01 → 3SCARD 16:57
PROVIDERS: ADMIT Hospitalist; ATTEND Hospitalist
DX: U07.1 COVID-19 (principal); R55 Syncope and collapse; R07.89 Other chest pain; I25.10 Atherosclerotic heart disease of native coronary artery without angina pectoris; I25.82 Chronic total occlusion of coronary artery; F17.210 Nicotine dependence, cigarettes, uncomplicated; R05.9 Cough, unspecified; Z71.6 Tobacco abuse counseling; Z98.890 Other specified postprocedural states
CPT/HCPCS: 93458; 99285; 96376; 96361; 96374; 96375; 36415; 93005; 93308; 85379; 80053; 80048; 82728; 83615; 84484; 85025 ×2; 85610; 85730; 86140; 87635; 71046; 71275; G0378 ×3; C1894; J2250; J1100 ×3; J2001; J1650 ×3; J1644; C9113 ×2; Q9967 ×2

== ENCOUNTER 2022-05-23 09:05 | Emergency (ER) | payer OTHER ==
[2022-05-23 09:14] VITALS: RESP 18; TEMP 97.4
--- NOTE | 2022-05-23 09:39 | ED ---
General Adult HPI - General Chief complaint: Extremity Injury, Upper Stated complaint: lt shoulder injury Time Seen by Provider: 05/23/22 09:20 Source: patient, RN notes reviewed Mode of arrival: ambulatory Limitations: no limitations, physical limitation - History of Present Illness Initial comments: 41-year-old male with reported medical history of HI coming in today for left shoulder pain 2 weeks. Patient reports he was seen in ED and was told he had a shoulder dislocation that reduced on its own. He was evaluated for this 2 weeks ago, but did not follow up with an orthopedist. This morning he woke up and his fifth left digit was numb, denies traumatic event previous injury. Patient also reports a bout of left chest pain that stared last night that is constant and burning, although he does not feel the pain today. He did not take anything for relief. Patient denies fever, chills, shortness of breath, pleuritic chest pain, abdominal pain, nausea, vomiting, diarrhea, weakness, dizziness. - Related Data Previous Rx's Medication Instructions Recorded Ascorbic Acid [Vitamin C] 500 mg PO BID 30 Days #60 tab 06/24/21 Aspirin 81 mg PO DAILY 30 Days #30 tab 06/24/21 Atorvastatin [Lipitor] 40 mg PO DAILY 30 Days #30 tab 06/24/21 Cholecalciferol [Vitamin D3 (25 50 mcg PO DAILY 30 Days #60 tablet 06/24/21 Mcg = 1000 Iu)] Metoprolol Succinate (ER) [Toprol 25 mg PO DAILY 30 Days #30 tab 06/24/21 XL] Nicotine 14Mg/24Hr Patch [Habitrol] 1 patch TRANSDERM DAILY #20 patch 06/24/21 Zinc Sulfate [Orazinc] 220 mg PO DAILY 30 Days #30 cap 06/24/21 Metoprolol Succinate (ER) [Toprol 25 mg PO DAILY #14 tab 05/23/22 XL] Allergies Allergy/AdvReac Type Severity Reaction Status Date / Time No Known Allergies Allergy Verified 05/23/22 09:13 Review of Systems ROS Statement: Those systems with pertinent positive or pertinent negative responses have been documented in the HPI. ROS Other: All systems not noted in ROS Statement are negative. Past Medical History Past Medical History: No Reported History History of Any Multi-Drug Resistant Organisms: None Reported Past Surgical History: Back Surgery Past Anesthesia/Blood Transfusion Reactions: No Reported Reaction Past Psychological History: No Psychological Hx Reported Smoking Status: Current every day smoker Past Alcohol Use History: None Reported Past Drug Use History: Marijuana General Exam Limitations: no limitations, physical limitation General appearance: alert Head exam: Present: atraumatic, normocephalic Eye exam: Present: normal appearance, PERRL, EOMI. Absent: scleral icterus, conjunctival injection, periorbital swelling ENT exam: Present: normal exam, mucous membranes moist Neck exam: Present: normal inspection. Absent: tenderness, meningismus, lymphadenopathy Respiratory exam: Present: normal lung sounds bilaterally. Absent: respiratory distress, wheezes, rales, rhonchi, stridor Cardiovascular Exam: Present: regular rate, normal rhythm, tachycardia, normal heart sounds. Absent: systolic murmur, diastolic murmur, rubs, gallop, clicks GI/Abdominal exam: Present: soft, normal bowel sounds. Absent: distended, tenderness, guarding, rebound, rigid Extremities exam: Present: normal inspection, full ROM, normal capillary refill. Absent: tenderness, pedal edema, joint swelling, calf tenderness Left General: Present: other (LUE without erythema, edema, eccyhmosis, or obvious deformity. Reproduceable pain with movement. Full range of motion, 5/5 strength bilaterally. 2+ radial pulses bilaterally. NVI. ) Course Vital Signs 05/23/22 05/23/22 05/23/22 09:10 10:38 11:00 Temperature 97.4 F L Pulse Rate 100 Respiratory 18 Rate Blood Pressure 190/131 187/132 172/117 O2 Sat by Pulse 98 Oximetry 05/23/22 11:28 Temperature Pulse Rate 74 Respiratory 18 Rate Blood Pressure 159/110 O2 Sat by Pulse 96 Oximetry - Reevaluation(s) Reevaluation #1: 05/23/22 11:15; Pt reevaluated and updated on results. EKG Findings - EKG Comments: EKG Findings:: Rate 92 bpm, NSR. RI 143, QRS 111ms. Left axis deviation, non- specific t-wave inversion Medical Decision Making - Medical Decision Making 41 year old male coming in to ED for L shoulder pain and chest pain. Patients initial blood pressure was elevated, and patient was given 20mg of labetolol and toradol injection. Patient had a cardiac workup done during the course of the ED. I interpreted the following EKG 92 bpm, NSR. I interpreted the following CXR negative for acute process, negative for L shoulder dislocation. Labs remarkable for WBC 7.2, HGB 18.0, BMP unremarkable, troponin negative. Discussed the results with the patient, all questions were answered. Patient given a prescription for metoprolol. Patient was encouraged to return to the ER if worsening symptoms of chest pain or shortness of breath. Case discussed with Dr. Delatorre. - Lab Data Result diagrams: 05/23/22 10:00 05/23/22 10:00 Lab Results 05/23/22 05/23/22 05/23/22 Range/Units 10:00 10:00 10:00 WBC 7.2 (3.8-10.6) k/uL RBC 6.05 H (4.30-5.90) m/uL Hgb 18.0 H (13.0-17.5) gm/dL Hct 51.3 (39.0-53.0) % MCV 84.7 (80.0-100.0) fL MCH 29.7 (25.0-35.0) pg MCHC 35.0 (31.0-37.0) g/dL RDW 13.1 (11.5-15.5) % Plt Count 342 (150-450) k/uL MPV 6.8 Neutrophils % 60 % Lymphocytes % 29 % Monocytes % 4 % Eosinophils % 5 % Basophils % 1 % Neutrophils # 4.3 (1.3-7.7) k/uL Lymphocytes # 2.1 (1.0-4.8) k/uL Monocytes # 0.3 (0-1.0) k/uL Eosinophils # 0.4 (0-0.7) k/uL Basophils # 0.1 (0-0.2) k/uL PT 10.5 (9.0-12.0) sec INR 1.0 (<1.2) APTT 26.3 (22.0-30.0) sec Sodium 139 (137-145) mmol/L Potassium 4.5 (3.5-5.1) mmol/L Chloride 103 (98-107) mmol/L Carbon Dioxide 27 (22-30) mmol/L Anion Gap 9 mmol/L BUN 16 (9-20) mg/dL Creatinine 0.72 (0.66-1.25) mg/dL Est GFR (CKD-EPI)AfAm >90 (>60 ml/min/1.73 sqM) Est GFR (CKD-EPI)NonAf >90 (>60 ml/min/1.73 sqM) Glucose 128 H (74-99) mg/dL Calcium 9.4 (8.4-10.2) mg/dL Magnesium 2.1 (1.6-2.3) mg/dL Total Bilirubin 0.5 (0.2-1.3) mg/dL AST 27 (17-59) U/L ALT 35 (4-49) U/L Alkaline Phosphatase 92 (38-126) U/L Troponin I (0.000-0.034) ng/mL Total Protein 7.4 (6.3-8.2) g/dL Albumin 4.9 (3.5-5.0) g/dL 05/23/22 Range/Units 10:00 WBC (3.8-10.6) k/uL RBC (4.30-5.90) m/uL Hgb (13.0-17.5) gm/dL Hct (39.0-53.0) % MCV (80.0-100.0) fL MCH (25.0-35.0) pg MCHC (31.0-37.0) g/dL RDW (11.5-15.5) % Plt Count (150-450) k/uL MPV Neutrophils % % Lymphocytes % % Monocytes % % Eosinophils % % Basophils % % Neutrophils # (1.3-7.7) k/uL Lymphocytes # (1.0-4.8) k/uL Monocytes # (0-1.0) k/uL Eosinophils # (0-0.7) k/uL Basophils # (0-0.2) k/uL PT (9.0-12.0) sec INR (<1.2) APTT (22.0-30.0) sec Sodium (137-145) mmol/L Potassium (3.5-5.1) mmol/L Chloride (98-107) mmol/L Carbon Dioxide (22-30) mmol/L Anion Gap mmol/L BUN (9-20) mg/dL Creatinine (0.66-1.25) mg/dL Est GFR (CKD-EPI)AfAm (>60 ml/min/1.73 sqM) Est GFR (CKD-EPI)NonAf (>60 ml/min/1.73 sqM) Glucose (74-99) mg/dL Calcium (8.4-10.2) mg/dL Magnesium (1.6-2.3) mg/dL Total Bilirubin (0.2-1.3) mg/dL AST (17-59) U/L ALT (4-49) U/L Alkaline Phosphatase (38-126) U/L Troponin I <0.012 (0.000-0.034) ng/mL Total Protein (6.3-8.2) g/dL Albumin (3.5-5.0) g/dL Disposition Clinical Impression: Left shoulder pain, Hypertension Disposition: HOME SELF-CARE Condition: Stable Additional Instructions: Return to the ED if worsening symptoms or if symptoms persist. Prescriptions: Metoprolol Succinate (ER) [Toprol XL] 25 mg PO DAILY #14 tab Is patient prescribed a controlled substance at d/c from ED?: No Referrals: None,Stated [Primary Care Provider] - 1-2 days Decision Time: 11:23
[2022-05-23 10:08] LABS: Basophils # (A) 0.1 k/uL (0-0.2); Basophils % (A) 1 %; Eosinophils # (A) 0.4 k/uL (0-0.7); Eosinophils % (A) 5 %; HCT 51.3 % (39.0-53.0); Lymphocytes # (A) 2.1 k/uL (1.0-4.8); Lymphocytes % (A) 29 %; MCH 29.7 pg (25.0-35.0); MCV 84.7 fL (80.0-100.0); Mean Platelet Volume 6.8; Monocytes # (A) 0.3 k/uL (0-1.0); Monocytes % (A) 4 %; Neutrophils # (A) 4.3 k/uL (1.3-7.7); Neutrophils % (A) 60 %; Platelet Count 342 k/uL (150-450); RBC 6.05 m/uL (4.30-5.90); RDW 13.1 % (11.5-15.5); WBC 7.2 k/uL (3.8-10.6)
[2022-05-23 10:19] LABS: ALT 35 U/L (4-49); AST 27 U/L (17-59); African American GFR (CKD) >90 (>60 ml/min/1.73 sqM); Albumin 4.9 g/dL (3.5-5.0); Alkaline Phosphatase 92 U/L (38-126); Anion Gap 9 mmol/L; Blood Urea Nitrogen 16 mg/dL (9-20); Calcium 9.4 mg/dL (8.4-10.2); Carbon Dioxide 27 mmol/L (22-30); Chloride 103 mmol/L (98-107); Glucose 128 mg/dL (74-99); Magnesium 2.1 mg/dL (1.6-2.3); Non-African American GFR(CKD) >90 (>60 ml/min/1.73 sqM); Potassium 4.5 mmol/L (3.5-5.1); Sodium 139 mmol/L (137-145); Total Bilirubin 0.5 mg/dL (0.2-1.3); Total Protein 7.4 g/dL (6.3-8.2)
[2022-05-23 10:28] LABS: Partial Thromboplastin Time 26.3 sec (22.0-30.0); Prothrombin Time 10.5 sec (9.0-12.0)
[2022-05-23] MEDS ORDERED: LABETALOL 5 MG/ML VIAL MDV IVP STA ×2 (10:39→11:10)
--- NOTE | 2022-05-23 10:43 | XR ---
EXAMINATION TYPE: XR chest 2V DATE OF EXAM: 05/23/2022 COMPARISON: Chest x-ray and CT chest June 22, 2021 HISTORY: Chest pain. TECHNIQUE: Frontal and lateral views of the chest are obtained. FINDINGS: There is no suspicious focal air space opacity, pleural effusion, or pneumothorax seen. T he cardiac silhouette size is stable and within normal limits. Multilevel spurring in thoracic spine redemonstrated. IMPRESSION: No acute process.
[2022-05-23] MEDS ORDERED: KETOROLAC 15 MG/ML 1 ML VIAL IVP STA (11:12)
[2022-05-23 11:28] VITALS: BP 159/110; PULSE 74
== END 2022-05-23 11:50 | disposition home or self-care (01) ==
LOC: EC 09:05
DX: M25.512 Pain in left shoulder (principal); I10 Essential (primary) hypertension; F12.90 Cannabis use, unspecified, uncomplicated; F17.200 Nicotine dependence, unspecified, uncomplicated
CPT/HCPCS: 36415; 93005; 80053; 83735; 84484; 85025; 85610; 85730; 71046; 99283; 96374; 96375 ×2; J1885; 96376; 99284

== ENCOUNTER 2023-06-26 04:49 | Inpatient (IN) | payer OTHER ==
[2023-06-26] MEDS ORDERED: HEPARIN SODIUM 1,000 UN/ML (10ML VL) IV ONE (05:04)
[2023-06-26] MEDS ORDERED: ASPIRIN 81 MG PO STA (05:04)
[2023-06-26] MEDS ORDERED: ATORVASTATIN 80 MG TAB PO STA (05:07)
[2023-06-26] MEDS ORDERED: SODIUM CHLORIDE 0.9% 1,000 ML IV ONE ×2 (05:08→06:01)
[2023-06-26] MEDS ORDERED: NALOXONE 0.4 MG/ML 1 ML VIAL IV PRN (05:14)
--- NOTE | 2023-06-26 05:14 | ED ---
General Adult HPI - General Chief complaint: Chest Pain Stated complaint: Chest pain Time Seen by Provider: 06/26/23 05:02 Source: patient, RN notes reviewed, old records reviewed Mode of arrival: ambulatory Limitations: no limitations - History of Present Illness Initial comments: 43 male presenting for evaluation of left-sided chest pain. Patient has had intermittent exertional chest pain for the past several days but this became more constant prior to arrival. He's had some diaphoresis. No vomiting. Pain does not radiate is localized in his left chest. He has known history of CAD and tobacco use. - Related Data Previous Rx's Medication Instructions Recorded Ascorbic Acid [Vitamin C] 500 mg PO BID 30 Days #60 tab 06/24/21 Aspirin 81 mg PO DAILY 30 Days #30 tab 06/24/21 Atorvastatin [Lipitor] 40 mg PO DAILY 30 Days #30 tab 06/24/21 Cholecalciferol [Vitamin D3 (25 50 mcg PO DAILY 30 Days #60 tablet 06/24/21 Mcg = 1000 Iu)] Metoprolol Succinate (ER) [Toprol 25 mg PO DAILY 30 Days #30 tab 06/24/21 XL] Nicotine 14Mg/24Hr Patch [Habitrol] 1 patch TRANSDERM DAILY #20 patch 06/24/21 Zinc Sulfate [Orazinc] 220 mg PO DAILY 30 Days #30 cap 06/24/21 Metoprolol Succinate (ER) [Toprol 25 mg PO DAILY #14 tab 05/23/22 XL] Allergies Allergy/AdvReac Type Severity Reaction Status Date / Time No Known Allergies Allergy Verified 06/26/23 04:53 Review of Systems ROS Statement: Those systems with pertinent positive or pertinent negative responses have been documented in the HPI. ROS Other: All systems not noted in ROS Statement are negative. Past Medical History Past Medical History: No Reported History History of Any Multi-Drug Resistant Organisms: None Reported Past Surgical History: Back Surgery Past Anesthesia/Blood Transfusion Reactions: No Reported Reaction Past Psychological History: No Psychological Hx Reported Smoking Status: Current every day smoker Past Alcohol Use History: None Reported Past Drug Use History: Marijuana General Exam Limitations: no limitations General appearance: alert, in no apparent distress Head exam: Present: atraumatic, normocephalic Eye exam: Present: normal appearance, PERRL ENT exam: Present: normal exam Neck exam: Present: normal inspection. Absent: tenderness, meningismus Respiratory exam: Present: normal lung sounds bilaterally. Absent: respiratory distress, wheezes Cardiovascular Exam: Present: regular rate, normal rhythm GI/Abdominal exam: Present: soft. Absent: distended, tenderness, guarding Extremities exam: Present: normal inspection, normal capillary refill Neurological exam: Present: alert, oriented X3 Psychiatric exam: Present: anxious Skin exam: Present: warm, dry, intact. Absent: cyanosis, diaphoretic Course Vital Signs 06/26/23 06/26/23 06/26/23 04:51 05:10 05:17 Temperature 98 F Pulse Rate 74 113 H 115 H Respiratory 18 18 22 Rate Blood Pressure 159/102 163/107 177/108 O2 Sat by Pulse 94 L 99 98 Oximetry 06/26/23 06/26/23 05:21 05:27 Temperature Pulse Rate 106 H 89 Respiratory 16 18 Rate Blood Pressure 162/112 159/110 O2 Sat by Pulse 99 99 Oximetry Medical Decision Making - Medical Decision Making Was pt. sent in by a medical professional or institution (, PA, ENTRY LEVEL ACCOUNT EXECUTIVE, urgent care, hospital, or long term...) When possible be specific @ -No Did you speak to anyone other than the patient for history (EMS, parent, family, police, friend...)? What history was obtained from this source @ -No Did you review nursing and triage notes (agree or disagree)? Why? @ -I reviewed and agree with nursing and triage notes Were old charts reviewed (outside hosp., previous admission, EMS record, old EKG, old radiological studies, urgent care reports/EKG's, long term records)? Report findings @ -No old charts were reviewed Differential Diagnosis (chest pain, altered mental status, abdominal pain women, abdominal pain men, vaginal bleeding, weakness, fever, dyspnea, syncope, headache, dizziness, GI bleed, back pain, seizure, CVA, palpatations, mental health, musculoskeletal)? @ Differential Chest Pain: Stable Angina, Unstable Angina, STEMI, NSTEMI Aortic Dissection, Pneumothorax, Musculoskeletal, Esophageal Spasm GERD, Cholecystitis, Pancreatitis, Zoster, this is not meant to be an all-inclusive list. EKG interpreted by me (3pts min.). @ -Sinus rhythm, left axis, ventricular rate of 81, WA interval 144, QRS duration 134, QTC 471, ST segment elevation in leads [address] segment depression in aVL, V1 and T-wave inversion in the lateral precordial leads. X-rays interpreted by me (1pt min.). @ -Chest x-ray negative for acute cardiopulmonary findings CT interpreted by me (1pt min.). @ -None done U/S interpreted by me (1pt. min.). @ -None done What testing was considered but not performed or refused? (CT, X-rays, U/S, labs)? Why? @ -None What meds were considered but not given or refused? Why? @ -None Did you discuss the management of the patient with other professionals (professionals i.e. , PA, ENTRY LEVEL ACCOUNT EXECUTIVE, lab, RT, psych nurse, social studies department chair, welder fitter arc, teacher, senior credit officer, case technician)? Give summary @ -Dr. Vaca, [facility] Was smoking cessation discussed for >3mins.? @ -No Was critical care preformed (if so, how long)? @ -yes, 35 Were there social determinants of health that impacted care today? How? (Homelessness, low income, unemployed, alcoholism, drug addiction, transportation, low edu. Level, literacy, decrease access to med. care, [facility], rehab)? @ -No Was there de-escalation of care discussed even if they declined (Discuss DNR or withdrawal of care, Hospice)? DNR status @ -No What co-morbidities impacted this encounter? (DM, HTN, Smoking, COPD, CAD, Cancer, CVA, ARF, Chemo, Hep., AIDS, mental health diagnosis, sleep apnea, morbid obesity)? @ -[CAD, Was patient admitted / discharged? Hospital course, mention meds given and route, prescriptions, significant lab abnormalities, going to OR and other pertinent info. @ -[43-year-old male presenting with chest pain, and ST segment elevation in lead 3 and aVF consistent with acute MO. veterinary laboratory technician is activated upon arrival. The patient is given aspirin, heparin, Lipitor and IV fluids in the emergency department. Undiagnosed new problem with uncertain prognosis? @ -No Drug Therapy requiring intensive monitoring for toxicity (Heparin, Nitro, Insulin, Cardizem)? @ -No Were any procedures done? @ -No Diagnosis/symptom? @ -[STEMI Acute, or Chronic, or Acute on Chronic? @ -[Acute Uncomplicated (without systemic symptoms) or Complicated (systemic symptoms)? @ -default Side effects of treatment? @ -No Exacerbation, Progression, or Severe Exacerbation? @ -No Poses a threat to life or bodily function? How? (Chest pain, [place], MO, pneumonia, PE, COPD, DKA, ARF, appy, cholecystitis, CVA, Diverticulitis, Homicidal, Suicidal, threat to staff... and all critical care pts) @ -yes, STEMI - Lab Data Result diagrams: 06/26/23 05:04 06/26/23 05:04 Lab Results 06/26/23 06/26/23 06/26/23 Range/Units 05:04 05:04 05:04 WBC 11.8 H (3.8-10.6) k/uL RBC 5.16 (4.30-5.90) m/uL Hgb 14.6 (13.0-17.5) gm/dL Hct 42.5 (39.0-53.0) % MCV 82.4 (80.0-100.0) fL MCH 28.2 (25.0-35.0) pg MCHC 34.3 (31.0-37.0) g/dL RDW 13.2 (11.5-15.5) % Plt Count 296 (150-450) k/uL MPV 7.3 Neutrophils % 76 % Lymphocytes % 18 % Monocytes % 4 % Eosinophils % 1 % Basophils % 0 % Neutrophils # 9.1 H (1.3-7.7) k/uL Lymphocytes # 2.2 (1.0-4.8) k/uL Monocytes # 0.5 (0-1.0) k/uL Eosinophils # 0.1 (0-0.7) k/uL Basophils # 0.0 (0-0.2) k/uL PT 10.7 (10.0-12.5) sec INR 1.0 (<1.2) APTT 25.1 (22.0-30.0) sec Sodium 137 (137-145) mmol/L Potassium 3.8 (3.5-5.1) mmol/L Chloride 99 (98-107) mmol/L Carbon Dioxide 26 (22-30) mmol/L Anion Gap 12 mmol/L BUN 12 (9-20) mg/dL Creatinine 0.72 (0.66-1.25) mg/dL Est GFR (CKD-EPI)AfAm >90 (>60 ml/min/1.73 sqM) Est GFR (CKD-EPI)NonAf >90 (>60 ml/min/1.73 sqM) Glucose 134 H (74-99) mg/dL Calcium 9.4 (8.4-10.2) mg/dL Magnesium 2.0 (1.6-2.3) mg/dL Total Bilirubin 0.7 (0.2-1.3) mg/dL AST 282 H (17-59) U/L ALT 55 H (4-49) U/L Alkaline Phosphatase 97 (38-126) U/L Troponin I (0.000-0.034) ng/mL Total Protein 7.2 (6.3-8.2) g/dL Albumin 4.4 (3.5-5.0) g/dL Influenza Type A (PCR) (Not Detectd) Influenza Type B (PCR) (Not Detectd) RSV (PCR) (Not Detectd) SARS-CoV-2 (PCR) (Not Detectd) 06/26/23 06/26/23 Range/Units 05:04 05:04 WBC (3.8-10.6) k/uL RBC (4.30-5.90) m/uL Hgb (13.0-17.5) gm/dL Hct (39.0-53.0) % MCV (80.0-100.0) fL MCH (25.0-35.0) pg MCHC (31.0-37.0) g/dL RDW (11.5-15.5) % Plt Count (150-450) k/uL MPV Neutrophils % % Lymphocytes % % Monocytes % % Eosinophils % % Basophils % % Neutrophils # (1.3-7.7) k/uL Lymphocytes # (1.0-4.8) k/uL Monocytes # (0-1.0) k/uL Eosinophils # (0-0.7) k/uL Basophils # (0-0.2) k/uL PT (10.0-12.5) sec INR (<1.2) APTT (22.0-30.0) sec Sodium (137-145) mmol/L Potassium (3.5-5.1) mmol/L Chloride (98-107) mmol/L Carbon Dioxide (22-30) mmol/L Anion Gap mmol/L BUN (9-20) mg/dL Creatinine (0.66-1.25) mg/dL Est GFR (CKD-EPI)AfAm (>60 ml/min/1.73 sqM) Est GFR (CKD-EPI)NonAf (>60 ml/min/1.73 sqM) Glucose (74-99) mg/dL Calcium (8.4-10.2) mg/dL Magnesium (1.6-2.3) mg/dL Total Bilirubin (0.2-1.3) mg/dL AST (17-59) U/L ALT (4-49) U/L Alkaline Phosphatase (38-126) U/L Troponin I 17.100 H* (0.000-0.034) ng/mL Total Protein (6.3-8.2) g/dL Albumin (3.5-5.0) g/dL Influenza Type A (PCR) Not Detected (Not Detectd) Influenza Type B (PCR) Not Detected (Not Detectd) RSV (PCR) Not Detected (Not Detectd) SARS-CoV-2 (PCR) Detected A (Not Detectd) Critical Care Time Critical Care Time: Yes Total Critical Care Time: 35 Disposition Clinical Impression: ST elevation myocardial infarction (STEMI) Disposition: ADMITTED IP TO THIS HOSP Condition: Serious Is patient prescribed a controlled substance at d/c from ED?: No Time of Disposition: 05:13
[2023-06-26] MEDS ORDERED: MORPHINE SULFATE 2 MG/ML SYRINGE IVP STA (05:17)
[2023-06-26 05:27] LABS: Basophils % (A) 0 %; Eosinophils # (A) 0.1 k/uL (0-0.7); Eosinophils % (A) 1 %; HCT 42.5 % (39.0-53.0); HGB 14.6 gm/dL (13.0-17.5); Lymphocytes # (A) 2.2 k/uL (1.0-4.8); Lymphocytes % (A) 18 %; MCH 28.2 pg (25.0-35.0); MCHC 34.3 g/dL (31.0-37.0); MCV 82.4 fL (80.0-100.0); Mean Platelet Volume 7.3; Monocytes # (A) 0.5 k/uL (0-1.0); Monocytes % (A) 4 %; Neutrophils # (A) 9.1 k/uL (1.3-7.7); Neutrophils % (A) 76 %; Platelet Count 296 k/uL (150-450); RBC 5.16 m/uL (4.30-5.90); RDW 13.2 % (11.5-15.5); WBC 11.8 k/uL (3.8-10.6)
[2023-06-26 05:36] LABS: ALT 55 U/L (4-49); AST 282 U/L (17-59); African American GFR (CKD) >90 (>60 ml/min/1.73 sqM); Albumin 4.4 g/dL (3.5-5.0); Alkaline Phosphatase 97 U/L (38-126); Anion Gap 12 mmol/L; Blood Urea Nitrogen 12 mg/dL (9-20); Calcium 9.4 mg/dL (8.4-10.2); Carbon Dioxide 26 mmol/L (22-30); Chloride 99 mmol/L (98-107); Glucose 134 mg/dL (74-99); Non-African American GFR(CKD) >90 (>60 ml/min/1.73 sqM); Potassium 3.8 mmol/L (3.5-5.1); Sodium 137 mmol/L (137-145); Total Bilirubin 0.7 mg/dL (0.2-1.3); Total Protein 7.2 g/dL (6.3-8.2)
[2023-06-26] MEDS ORDERED: VERAPAMIL 2.5 MG/ML 2 ML AMP ONE (05:39)
[2023-06-26] MEDS ORDERED: fentaNYL (PF) 50 MCG/ML 2 ML AMP ONE (05:39)
[2023-06-26] MEDS ORDERED: LIDOCAINE 1% INJ 10MG/ML (20 ML MDV) ONE (05:39)
[2023-06-26] MEDS ORDERED: HEPARIN SODIUM 1,000 UN/ML (10ML VL) ONE (05:39)
[2023-06-26] MEDS: MIDAZOLAM 2 MG/2 ML VIAL IVP ONE ×2 (05:42→06:13)
[2023-06-26] MEDS: fentaNYL (PF) 50 MCG/1 ML VIAL IVP ONE ×2 (05:42→06:13)
[2023-06-26] MEDS ORDERED: LIDOCAINE 1% INJ 10MG/ML (20 ML MDV) SQ ONE (05:43)
[2023-06-26] MEDS ORDERED: VERAPAMIL SYRINGE (5 MG/10 ML) INTRAARTER ONE (05:45)
[2023-06-26] MEDS: HEPARIN SODIUM 1,000 UN/ML (10ML VL) IVP ONE ×3 (05:46→06:14)
[2023-06-26 05:54] LABS: Partial Thromboplastin Time 25.1 sec (22.0-30.0); Prothrombin Time 10.7 sec (10.0-12.5)
[2023-06-26] MEDS ORDERED: TICAGRELOR 90 MG TAB ONE (05:55)
[2023-06-26] MEDS ORDERED: TICAGRELOR 90 MG TAB PO ONE (05:56)
[2023-06-26] MEDS ORDERED: IV FLUID CONTINUATION 1,000 ML IV ONE (06:01)
[2023-06-26] MEDS: NITROGLYCERIN 1000MCG/10ML SYRINGE INTRACORON ONE ×3 (06:03→06:51)
[2023-06-26] MEDS ORDERED: ONDANSETRON 4 MG/2 ML VIAL ONE (06:06)
[2023-06-26] MEDS ORDERED: ONDANSETRON 4 MG/2 ML VIAL IVP ONE (06:10)
[2023-06-26] MEDS ORDERED: TIROFIBAN 12.5MG-250ML NS 250 ML IV ONE (06:21)
--- NOTE | 2023-06-26 06:23 | P.CRDCN ---
History of Present Illness Consult date: 06/26/23 History of present illness: HISTORY OF PRESENTING ILLNESS 43-year-old with no significant past medical history, has not seen any physician in recent past. He presented to the hospital because of worsening substernal chest pain. Patient reports that over last 2-4 days he has been noticing on and off chest pressure sensation which she has been putting out. Last night. He was having significant chest pain that started after cutting wood. He could not go to sleep because of his chest pressure therefore he decided to come to the ER. He denies having any nausea vomiting. He reports on and off mild diaphoresis and mild difficulty breathing but "nothing to his concern". He smokes 1 pack per day. He denies any heavy alcohol use and marijuana use or any other drug use In 2020 patient was admitted with COVID, he had elevated troponin for which she had a heart catheterization which did not show any obstructive coronary artery disease. He did not receive any stents He denies being on aspirin on any other blood thinners. He denies any prior history of stroke or any malignancies. He denies any ALLERGIES, bleeding diathesis Lab shows WBC 11.8, Hb 14, platelets 290, BUN 12, creatinine 0.7, troponin 17, COVID Positive ECG shows sinus rhythm with Q waves in inferior leads with ST elevations in lead 3 and aVF. There are prominent R waves in lead V1 which could be posterior Q wa ves. There are reciprocal changes in lateral leads. REVIEW OF SYSTEMS 14 point review of system is negative except what is mentioned above in HPI. PHYSICAL EXAMINATION Vital signs reviewed. Head: Normocephalic. Eyes: Sclerae nonicteric. Neck: Brisk carotid upstroke, no jugular venous distention. Lungs: Clear to auscultation. Heart: Regular rate and rhythm, S1-S2, no S3, no murmur or rub. Abdomen: Soft nontender, positive bowel sounds no organomegaly. Extremities: No edema, intact distal pulses. Neuro: Alert, oritented, no focal deficits ASSESSMENT Substernal chest pain Late presenting inferior STEMI, Q waves inferiorly with troponin of 17 COVID positive Tobacco smoker 1PPD PLAN Plan for emergent cardiac catheterization. Verbal consent was obtained. Patient understands the risks of the procedure including stroke and . Further recommendations to follow cath results Obtain echocardiogram Past Medical History Past Medical History: No Reported History History of Any Multi-Drug Resistant Organisms: None Reported Past Surgical History: Back Surgery Past Anesthesia/Blood Transfusion Reactions: No Reported Reaction Past Psychological History: No Psychological Hx Reported Smoking Status: Current every day smoker Past Alcohol Use History: None Reported Past Drug Use History: Marijuana Medications and Allergies Home Medications Medication Instructions Recorded Confirmed Type Ascorbic Acid [Vitamin C] 500 mg PO BID 30 Days #60 tab 06/24/21 Rx Aspirin 81 mg PO DAILY 30 Days #30 tab 06/24/21 Rx Atorvastatin [Lipitor] 40 mg PO DAILY 30 Days #30 tab 06/24/21 Rx Cholecalciferol [Vitamin D3 (25 50 mcg PO DAILY 30 Days #60 tablet 06/24/21 Rx Mcg = 1000 Iu)] Metoprolol Succinate (ER) [Toprol 25 mg PO DAILY 30 Days #30 tab 06/24/21 Rx XL] Nicotine 14Mg/24Hr Patch [Habitrol] 1 patch TRANSDERM DAILY #20 patch 06/24/21 Rx Zinc Sulfate [Orazinc] 220 mg PO DAILY 30 Days #30 cap 06/24/21 Rx Metoprolol Succinate (ER) [Toprol 25 mg PO DAILY #14 tab 05/23/22 Rx XL] Allergies Allergy/AdvReac Type Severity Reaction Status Date / Time No Known Allergies Allergy Verified 06/26/23 04:53 Physical Exam Vitals: Vital Signs Temp Pulse Resp BP Pulse Ox 06/26/23 05:27 89 18 159/110 99 06/26/23 05:21 106 H 16 162/112 99 06/26/23 05:17 115 H 22 177/108 98 06/26/23 05:10 113 H 18 163/107 99 06/26/23 04:51 98 F 74 18 159/102 94 L Intake and Output 06/25/23 06/25/23 06/26/23 14:59 22:59 06:59 Intake Total 100 Balance 100 Intake: IV 100 Other: Weight 83.915 kg Results 06/26/23 05:04 06/26/23 05:04 Cardiac Enzymes 06/26/23 06/26/23 Range/Units 05:04 05:04 AST 282 H (17-59) U/L Troponin I 17.100 H* (0.000-0.034) ng/mL Coagulation 06/26/23 Range/Units 05:04 PT 10.7 (10.0-12.5) sec APTT 25.1 (22.0-30.0) sec CBC 06/26/23 Range/Units 05:04 WBC 11.8 H (3.8-10.6) k/uL RBC 5.16 (4.30-5.90) m/uL Hgb 14.6 (13.0-17.5) gm/dL Hct 42.5 (39.0-53.0) % Plt Count 296 (150-450) k/uL Comprehensive Metabolic Panel 06/26/23 Range/Units 05:04 Sodium 137 (137-145) mmol/L Potassium 3.8 (3.5-5.1) mmol/L Chloride 99 (98-107) mmol/L Carbon Dioxide 26 (22-30) mmol/L BUN 12 (9-20) mg/dL Creatinine 0.72 (0.66-1.25) mg/dL Glucose 134 H (74-99) mg/dL Calcium 9.4 (8.4-10.2) mg/dL AST 282 H (17-59) U/L ALT 55 H (4-49) U/L Alkaline Phosphatase 97 (38-126) U/L Total Protein 7.2 (6.3-8.2) g/dL Albumin 4.4 (3.5-5.0) g/dL Current Medications Generic Name Dose Route Start Last Admin Trade Name Freq PRN Reason Stop Dose Admin Naloxone HCl 0.2 mg 06/26/23 05:14 Naloxone 0.4 Mg/Ml 1 Ml Vial IV Q2M PRN Opioid Reversal Intake and Output 06/25/23 06/25/23 06/26/23 14:59 22:59 06:59 Intake Total 100 Balance 100 Intake: IV 100 Other: Weight 83.915 kg Patient Weight 06/26/23 06:59 Weight 83.915 kg 06/26/23 05:04 06/26/23 05:04
--- NOTE | 2023-06-26 06:33 | P.CARDCATH ---
Date of Procedure: 06/26/23 Description of Procedure: DIAGNOSTIC CORONARY ANGIOGRAPHY and LEFT HEART CATH REPORT PROCEDURES PERFORMED: Left heart catheterization Selective coronary angiography Moderate conscious sedation 15 mins Ultrasound assisted Right radial access INDICATION: STEMI 43-year-old presents to the hospital because of substernal chest pain which has been on for last 2-3 days. His symptoms significantly about worse last night could not go to sleep therefore he came to the ER this morning. On admission he had Q waves in inferior leads with ST elevations in lead 3 and aVF, also prominent R wave in V1 suggestive of posterior extension. There were some reciprocal changes in high lateral and anterolateral leads. STEMI activation alert was received at 5:08 AM CONSENT: I have discussed the risks, benefits and alternative therapies for the above-mentioned procedure, sedation/analgesia and necessary blood product administration (if indicated, as they pertain to this patient). The patient has indicated understanding and acceptance of the risks and procedures discussed. Conscious Sedation: Patient's ECG, heart rate, blood pressure, pulse oximetry was monitored throughout the duration of procedure under my direct supervision. [1] mg Versed and 50 mg Fentanyl were used for induction of moderate conscious sedation. Total duration of moderate concious sedation 15 minutes. PROCEDURE: After explaining the risks, benefits and alternatives of the above mentioned procedures in detail to the patient, informed consent was obtained. Patient was taken to the catheterization lab, prepped and draped in usual sterile fashion using universal precuations. Barbow and vincent test were performed to confirm adequate perfusion to fingers. Ultrasound was used to identify the radial artery. 1% lidocaine was infiltrated over the right radial artery. A 6-Albanian sheath was placed and secured in the right radial artery using modified Seldinger technique. The sheath was flushed and 5 mg verapamil was administered intra-arterially. J tipped wire was advanced under fluoroscopic guidance. Once the wire tip reached aortic root 2500 units of IV heparin was given. 4000 units of IV heparin was given in the ER Over the wire JL4 diagnostic catheter was advanced. Wire was removed, catheter was flushed and manipulated under fluoroscopy to selectively engaged the left coronary ostium. Left coronary angioplasty was performed in different angiographic projections. This catheter was exchanged for a JR4 diagnostic catheter over the wire. The catheter was flushed and manipulated to cross the aortic valve. LV pressures were obtained. Pullback was performed across aortic valve and catheter was manipulated to selectively engage the right coronary ostium under fluoroscopic guidance. Right coronary angiography was performed in different angiographic projections. Catheter was removed over the wire. Radial sheath was flushed. After review of images, it was decided to proceed with emergent intervention of the RCA stenosis, case was discussed with Dr. Prather HEMODYNAMICS: Aortic Pressure: 120/90 mmHg. LV pressure:128/9/22 mmHg. LVEDP 22 mmHg. SELECTIVE CORONARY ARTERIOGRAPHY: LEFT MAIN: The left main is a large caliber vessel which bifurcates into the LAD and circumflex. Left main appears angiographically normal. LEFT ANTERIOR DESCENDING CORONARY ARTERY: LAD is a large caliber vessel which wraps around to the apex. Proximal LAD and mid LAD appears angiographically normal. Distal LAD has mild luminal irregularities. LAD gives rise to 3 small Diagonal branches. Diagonal 3 has mild diffuse disease. LEFT CIRCUMFLEX CORONARY ARTERY: It is nondominant vessel. LCx is a large caliber. It gives a high OM1 which is a long and very large caliber vessel 4.5 mm. It appears angiographically normal. After giving OM1, mid LCx bifurcates into AV groove ranch and OM 2. Metastases just before the bifurcation is 60-70% irregular plaque. OM 2 is medium-sized. Proximal OM 2 has 40-50% irregular stenosis. AV groove branch is a large caliber vessel. Just after its origin it has a 360 degree hair pin loop. It appears that the AV groove has a fistulous connection to the coronary sinus. RIGHT CORONARY ARTERY: Dominant vessel. The right coronary artery is a very large caliber vessel and very tortuous. Proximal RCA has 40% disease at the bend. Distal RCA has thrombotic occlusion 100% with NORMA 0 flow. left to right collaterals fills PDA retrogradely. IMPRESSION: 100% distal RCA thrombotic occlusion with NORMA 0 flow. 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 Prather Performing Physician Rajiv Vaca MD
[2023-06-26] MEDS ORDERED: IOPAMIDOL-370 100ML BTL INJ ONE (07:02)
[2023-06-26] MEDS ORDERED: IOPAMIDOL-370 200ML BTL INJ ONE (07:02)
[2023-06-26] MEDS ORDERED: ZOLPIDEM 5 MG TAB PO PRN (07:10)
[2023-06-26] MEDS ORDERED: RX INFO: IV CONTRAST WAS GIVEN 1 EACH MISC MISCELLANE PRN (07:10)
[2023-06-26] MEDS ORDERED: MAG HYDROX/AL HYDROX/SIMETH 30 ML CUP PO PRN (07:10)
[2023-06-26] MEDS ORDERED: ATROPINE SULFATE 0.1 MG/ML 10ML SYRINGE IV PRN (07:10)
--- NOTE | 2023-06-26 07:10 | P.PRCINT ---
Percutaneous Coronary Int. - Percutaneous Coronary Intervention Percutaneous Coronary Intervention: PROCEDURES PERFORMED: Right coronary angiography, IVUS RCA, penumbra aspiration thrombectomy, PCI proximal RCA with a 5.0 x 12 mm Xience MARY, PCI distal RCA with a 3.5 x 23mm Xience MARY, post dilated with a 4.0 NC balloon INDICATION: Late presenting inferior MT PROCEDURE: After the risks, benefits and alternatives of the above mentioned procedure explained in detail with the patient, informed consent was obtained. Patient was taken to the catheterization lab and prepped and draped in usual fashion. A 6-Syrian sheath had been placed in the right radial artery. The decision was made to perform PCI of the RCA. Heparin was given. A 6-Syrian AL-1 guide was used to engage RCA. A 0.014 BMW wire was advanced in the distal RCA. Predilation was performed with a 3.0 x 12 mm balloon. There was large amount of thrombus and therefore aspiration thrombectomy was performed with a Penumbra catheter. Additionally Aggrastat bolus was given. Initially with first pass a large amount of thrombus was removed. On repeat passes part of the thrombus came back to the mid RCA segment. A new Penumbra catheter was inserted and able to remove the mid RCA thrombus. Repeat balloon angioplasty was performed of the distal RCA with a 3.5 noncompliant balloon. Intravascular ultrasound showed distal thrombosis and reference vessel 3.5-4.0 mm as well as more proximal eccentric 70% stenosis with 5.0mm reference vessel. Therefore a 3.5 x 23 mm Xience MARY was placed in the distal RCA. The proximal portion was postdilated with a 4.0 noncompliant balloon. Next using the 4.0 x 12 mm balloon, predilation was performed of the proximal lesion. Next a 5.0 x 12 mm Xience MARY was placed in the proximal RCA. This was right around the bend and there was some wire bias, pseudo-lesion however on intravascular ultrasound showed well-expanded stent with no dissection. Final angiograms were performed. Per intervention there is 70% proximal and 100% mid RCA stenosis and NORMA 0 flow and post intervention there was less than 10% stenosis and NORMA-3 flow. The right radial sheath was removed and a TR band was placed with hemostasis achieved. The patient tolerated the procedure well. Patient was transported back to the post catheterization holding area in stable condition. Conscious Sedation: Patient was monitored under the direct supervision of leslieelf for conscious sedation using Versed and fentanyl for a total duration of 58 minutes HEMODYNAMICS: Aorta: 107/72 SELECTIVE CORONARY ARTERIOGRAPHY: LEFT MAIN: Not imaged LEFT ANTERIOR DESCENDING CORONARY ARTERY: Not imaged LEFT CIRCUMFLEX CORONARY ARTERY: Not imaged RIGHT CORONARY ARTERY: The right coronary artery is a large caliber vessel which gives off a PDA and PLV branch and is the dominant vessel. There 70% proximal RCA stenosis and 100% mid RCA stenosis FINAL IMPRESSION: 1. CAD as described above including 70% proximal and 100% mid RCA stenosis 2. S/p PCI proximal RCA with a 5.0 x 12 mm Xience MARY, PCI distal RCA with a 3.5 x 23mm Xience MARY, post dilated with a 4.0 NC balloon PLAN: 1. Aggressive risk factor modification per most recent ACC/AHA guidelines. 2. Continue dual antiplatelets with aspirin and Brillinta for 12 months 3. Smoking cessation discussed with patient
[2023-06-26 07:13] LABS: Glucose,Whole Blood 128 mg/dL (70-110)
--- NOTE | 2023-06-26 07:33 | XR ---
EXAMINATION TYPE: XR chest 1V portable DATE OF EXAM: 06/26/2023 COMPARISON: 05/23/2022 INDICATION: Chest pain TECHNIQUE: Single frontal view of the chest is obtained. FINDINGS: The heart size is normal. The pulmonary vasculature is normal. The lungs are clear. IMPRESSION: 1. No acute pulmonary process.
[2023-06-26] MEDS: LOSARTAN 25 MG TAB PO SCH (08:13)
[2023-06-26] MEDS: SODIUM CHLORIDE 0.9% 1,000 ML in EMPTY BAG 1 BAG IV SCH ×2 (08:14→19:42)
[2023-06-26] MEDS: ATORVASTATIN 20 MG TAB PO SCH (08:14)
[2023-06-26] MEDS ORDERED: METOPROLOL SUCCINATE (ER) 25 MG TAB.ER.24H PO SCH (09:00)
--- NOTE | 2023-06-26 09:01 | P.PN ---
Subjective Progress Note Date: 06/26/23 The patient is a 43-year-old male who presented to the emergency room with acute onset of chest discomfort. He was found to have an inferior wall ST elevated myocardial infarction. Coronary angiogram showed distal RCA occlusion, as well as intermediate disease in the left circumflex. Dr. Prather perform stenting of the RCA, requiring a proximal and distal stents. GENERAL: Well-appearing, well-nourished and in no acute distress. NECK: Supple without JVD or thyromegaly. LUNGS: Breath sounds clear to auscultation bilaterally. Respiration equal and unlabored. No wheezes, rales or rhonchi. HEART: Regular rate and rhythm without murmurs, rubs or gallops. S1 and S2 heard. EXTREMITIES: Normal range of motion, no edema. No clubbing or cyanosis. Peripheral pulses intact and strong. TR band in place TELEMETRY: Sinus rhythm LABS: WBC 11.8, hemoglobin 14.6, hematocrit 42.5, platelet 296, sodium 137, potassium 3.8, BUN 12, creatinine 0.72, magnesium 2.0, AST 282, ALT 55 IMPRESSION: Inferior wall ST elevated myocardial infarction Status post stenting of the RCA Covid positive Current tobacco user PLAN: Start oral beta blockers Continue dual antiplatelet therapy Encourage ambulation Awaiting echocardiogram results Further recommendations to the clinical course I am dictating on behalf of Dr Wilson Fisher's history/physical and assessment/plan. Objective - Vital Signs Vital signs: Vital Signs Temp 98.1 F 06/26/23 08:00 Pulse 70 06/26/23 08:00 Resp 20 06/26/23 08:00 BP 120/77 06/26/23 08:00 Pulse Ox 97 06/26/23 08:00 FiO2 Intake & Output 06/25/23 06/26/23 06/26/23 18:59 06:59 18:59 Intake Total 650 84 Output Total 500 Balance 650 -416 Weight 83.915 kg Intake: IV 650 Intake, IV Titration 84 Amount Sodium Chloride 0.9% 1, 84 000 ml In Empty Bag 1 bag @ 1 ML/KG/HR 83.915 mls/ hr IV .[id number] [facility] Rx#: [id number] Output: Urine 400 Estimated Blood Loss 100 - Labs CBC & Chem 7: 06/26/23 05:04 06/26/23 05:04 Labs: Abnormal Lab Results - Last 24 Hours (Table) 06/26/23 06/26/23 06/26/23 Range/Units 05:04 05:04 05:04 WBC 11.8 H (3.8-10.6) k/uL Neutrophils # 9.1 H (1.3-7.7) k/uL Glucose 134 H (74-99) mg/dL POC Glucose (mg/dL) (70-110) mg/dL AST 282 H (17-59) U/L ALT 55 H (4-49) U/L Troponin I 17.100 H* (0.000-0.034) ng/mL SARS-CoV-2 (PCR) (Not Detectd) 06/26/23 06/26/23 Range/Units 05:04 07:12 WBC (3.8-10.6) k/uL Neutrophils # (1.3-7.7) k/uL Glucose (74-99) mg/dL POC Glucose (mg/dL) 128 H (70-110) mg/dL AST (17-59) U/L ALT (4-49) U/L Troponin I (0.000-0.034) ng/mL SARS-CoV-2 (PCR) Detected A (Not Detectd)
--- NOTE | 2023-06-26 10:52 | CA ---
Transthoracic Echo Report Name: Malvin Arrington Age: 43 Gender: M : 1980 Exam Date: 06/26/2023 07:49 Exam Location: [place] [facility] Ht (in): 66 Wt (lb): 185 Ordering Physician: Rajiv Vaca MD ([id number]) Attending/Referring Phys: [employer] Nicole Quinn, FARHAD Procedure CPT: Indications: stemi Cardiac Hx: 2 stents Technical Quality: Good Contrast 1: Total Dose (mL): Contrast 2: Total Dose (mL): MEASUREMENTS (Male / Female) Normal Values 2D ECHO LV Diastolic Diameter PLAX 4.4 cm 4.2 - 5.9 / 3.9 - 5.3 cm LV Systolic Diameter PLAX 3.2 cm IVS Diastolic Thickness 1.4 cm 0.6 - 1.0 / 0.6 - 0.9 cm LVPW Diastolic Thickness 1.5 cm 0.6 - 1.0 / 0.6 - 0.9 cm LV Relative Wall Thickness 0.7 RV Internal Dim ED PLAX 3.7 cm LA Systolic Diameter LX 3.9 cm 3.0 - 4.0 / 2.7 - 3.8 cm LV Diastolic Volume MOD 4C 178.3 cm??? LV Systolic Volume MOD 4C 117.0 cm??? LV Ejection Fraction MOD 4C 34.4 % LV Cardiac Index MOD 4C 2203.2 cm???/min???m??? LV Diastolic Length 4C 9.4 cm LV Systolic Length 4C 8.0 cm LV Diastolic Volume MOD 2C 154.1 cm??? LV Systolic Volume MOD 2C 102.4 cm??? LV Ejection Fraction MOD 2C 33.6 % LV Cardiac Index MOD 2C 1860.7 cm???/min???m??? LV Diastolic Length 2C 9.8 cm LV Systolic Length 2C 8.8 cm LA Volume 52.5 cm??? 18 - 58 / 22 - 52 cm??? LA Volume Index 26.2 cm???/m??? 16 - 28 cm???/m??? M-MODE Aortic Root Diameter MM 3.7 cm MV E Point Septal Separation 0.6 cm AV Cusp Separation MM 2.5 cm DOPPLER AV Peak Velocity 191.4 cm/s AV Peak Gradient 14.7 mmHg AV Mean Velocity 125.3 cm/s AV Mean Gradient 7.1 mmHg AV Velocity Time Integral 28.9 cm LVOT Peak Velocity 119.0 cm/s LVOT Peak Gradient 5.7 mmHg MV Area PHT 2.9 cm??? Mitral E Point Velocity 69.6 cm/s Mitral A Point Velocity 62.1 cm/s Mitral E to A Ratio 1.1 MV Deceleration Time 261.3 ms MV E' Velocity 6.5 cm/s Mitral E to MV E' Ratio 10.7 FINDINGS Left Ventricle Left ventricular ejection fraction is estimated at 40-45 %. Left ventricular cavity size normal. Moderate concentric left ventricular hypertrophy. Right Ventricle Mild right ventricular dilatation. Unable to estimate the right ventricular systolic pressure. Right Atrium Normal right atrial size. Left Atrium Normal left atrial size. Mitral Valve Structurally normal mitral valve. Mild mitral regurgitation. Aortic Valve Trileaflet aortic valve. Aortic valve sclerosis without significant restriction Tricuspid Valve Structurally normal tricuspid valve. Mild tricuspid regurgitation. Pulmonic Valve Structurally normal pulmonic valve. Mild pulmonic regurgitation. Pericardium No pericardial effusion. Aorta Normal size aortic root and proximal ascending aorta. CONCLUSIONS Normal LV size ejection fraction is 40-45%. Mild right ventricular enlargement mild mitral and tricuspid regurgitation no pericardial effusion Previewed by: Dr. Cassi Thompson MD (Electronically Signed) Final Date: 26 June 2023 10:51
[2023-06-26 11:47] VITALS: BMI 29.8
--- NOTE | 2023-06-26 13:25 | P.HPIM ---
History of Present Illness H&P Date: 06/26/23 History of present illness; patient is 43-year-old gentleman with no significant past medical history brought to the ER for chest pain. Patient stated that he has been having intermittent chest pains the last few days. Chest pain was brought about by him chopping wood, chest pain was central in location, intermittent, pressure-like, nonradiating. Aggravated by exertion. Initially patient decided to bear the chest pain but last night while sleeping the chest pain worsened and he decided to come to the ER. There was no complain of palpitation. There was no complain of Orthopnea or PND. Denies any nausea, vomiting abdominal pain. Initial lab work done in the ER showed WBC 7.8, hemoglobin 14.6, platelet count 296, sodium 137, potassium 3.8, BUN 12, creatinine 0.7 2, troponin 17.1 Influenza A not detected Influenza B not detected RSV not detected COVID-19 detected EKG done in the ER showed heart rate of 81, showed ST segment elevation in lead 3 and aVF, T-wave inversions seen in 1 and aVL Chest x-ray done in the ER showed no acute cardiopulmonary process slab tripper was activated and patient underwent cardiac cath that showed CADincluding 70% proximal and 100% mid RCA stenosis, S/p PCI proximal RCA with a 5.0 x 12 mm Xience MARY, PCI distal RCA with a 3.5 x 23mm Xience MARY, post dilated with a 4.0 NC balloon Patient admitted to internal medicine service REVIEW OF SYSTEMS: CONSTITUTIONAL: No fever, no malaise, no fatigue. HEENT: No recent visual problems or hearing problems. Denied any sore throat. CARDIOVASCULAR: As mentioned above PULMONARY: No shortness of breath, no cough, no hemoptysis. GASTROINTESTINAL: No diarrhea, no nausea, no vomiting, no abdominal pain. NEUROLOGICAL: No headaches, no weakness, no numbness. HEMATOLOGICAL: Denies any bleeding or petechiae. GENITOURINARY: Denies any burning micturition, frequency, or urgency. MUSCULOSKELETAL/RHEUMATOLOGICAL: Denies any joint pain, swelling, or any muscle pain. ENDOCRINE: Denies any polyuria or polydipsia. The rest of the 14-point review of systems is negative. PHYSICAL EXAMINATION: GENERAL: The patient is alert and oriented x3, not in any acute distress. Well developed, well nourished. HEENT: Pupils are round and equally reacting to light. EOMI. No scleral icterus. No conjunctival pallor. Normocephalic, atraumatic. No pharyngeal erythema. No thyromegaly. CARDIOVASCULAR: S1 and S2 present. No murmurs, rubs, or gallops. PULMONARY: Chest is clear to auscultation, no wheezing or crackles. ABDOMEN: Soft, nontender, nondistended, normoactive bowel sounds. No palpable organomegaly. MUSCULOSKELETAL: No joint swelling or deformity. EXTREMITIES: No cyanosis, clubbing, or pedal edema. NEUROLOGICAL: Gross neurological examination did not reveal any focal deficits. SKIN: No rashes. Assessment and plan ST elevation [place] COVID-19 infection Hypertension Hyperlipidemia Monitor vital signs Monitor CBC Monitor CMP Continue telemetry monitoring Status post cardiac cath that showed CADincluding 70% proximal and 100% mid RCA stenosis, S/p PCI proximal RCA with a 5.0 x 12 mm Xience MARY, PCI distal RCA with a 3.5 x 23mm Xience MARY, post dilated with a 4.0 NC balloon Continue dual antiplatelet therapy Continue Lipitor Continue Toprol and losartan Cardiology following Labs and medication were reviewed.. Continue same treatment. Continue with symptomatic treatment. Resume home medication. Monitor labs and vitals. DVT and GI prophylaxis. Further recommendations as per clinical course of the patient Dictation was produced using [employer] dictation software. please excuse any grammatical, word or spelling errors. Past Medical History Past Medical History: No Reported History History of Any Multi-Drug Resistant Organisms: None Reported Past Surgical History: Back Surgery Past Anesthesia/Blood Transfusion Reactions: No Reported Reaction Past Psychological History: No Psychological Hx Reported Smoking Status: Current every day smoker Past Alcohol Use History: None Reported Past Drug Use History: Marijuana Medications and Allergies Home Medications Medication Instructions Recorded Confirmed Type No Known Home Medications 06/26/23 06/26/23 History Allergies Allergy/AdvReac Type Severity Reaction Status Date / Time No Known Allergies Allergy Verified 06/26/23 09:47 Physical Exam Vitals: Vital Signs Temp Pulse Resp BP Pulse Ox 06/26/23 12:00 97.9 F 87 10 L 107/73 96 06/26/23 11:00 74 22 110/75 97 06/26/23 10:00 88 21 103/65 97 06/26/23 09:00 72 16 102/67 96 06/26/23 08:00 98.1 F 70 20 120/77 97 06/26/23 07:14 74 18 06/26/23 05:27 89 18 159/110 99 06/26/23 05:21 106 H 16 162/112 99 06/26/23 05:17 115 H 22 177/108 98 06/26/23 05:10 113 H 18 163/107 99 06/26/23 04:51 98 F 74 18 159/102 94 L Intake and Output 06/25/23 06/26/23 06/26/23 22:59 06:59 14:59 Intake Total 650 84 Output Total 500 Balance 650 -416 Intake: IV 650 Intake, IV Titration 84 Amount Sodium Chloride 0.9% 1, 84 000 ml In Empty Bag 1 bag @ 1 ML/KG/HR 83.915 mls/ hr IV .[id number] [facility] Rx#: [id number] Output: Urine 400 Estimated Blood Loss 100 Other: Weight 83.915 kg 83.915 kg Results CBC & Chem 7: 06/26/23 05:04 06/26/23 05:04 Labs: Abnormal Lab Results - Last 24 Hours (Table) 06/26/23 06/26/23 06/26/23 Range/Units 05:04 05:04 05:04 WBC 11.8 H (3.8-10.6) k/uL Neutrophils # 9.1 H (1.3-7.7) k/uL Glucose 134 H (74-99) mg/dL POC Glucose (mg/dL) (70-110) mg/dL AST 282 H (17-59) U/L ALT 55 H (4-49) U/L Troponin I 17.100 H* (0.000-0.034) ng/mL SARS-CoV-2 (PCR) (Not Detectd) 06/26/23 06/26/23 Range/Units 05:04 07:12 WBC (3.8-10.6) k/uL Neutrophils # (1.3-7.7) k/uL Glucose (74-99) mg/dL POC Glucose (mg/dL) 128 H (70-110) mg/dL AST (17-59) U/L ALT (4-49) U/L Troponin I (0.000-0.034) ng/mL SARS-CoV-2 (PCR) Detected A (Not Detectd)
[2023-06-26] MEDS ORDERED: METOPROLOL SUCCINATE (ER) 25 MG TAB.ER.24H PO STA (15:45)
[2023-06-26] MEDS: TICAGRELOR 90 MG TAB PO SCH (20:02)
[2023-06-27 05:46] LABS: Basophils % (A) 0 %; Eosinophils # (A) 0.1 k/uL (0-0.7); Eosinophils % (A) 1 %; HCT 39.1 % (39.0-53.0); HGB 13.1 gm/dL (13.0-17.5); Lymphocytes # (A) 2.2 k/uL (1.0-4.8); Lymphocytes % (A) 24 %; MCHC 33.5 g/dL (31.0-37.0); MCV 83.4 fL (80.0-100.0); Mean Platelet Volume 7.3; Monocytes # (A) 0.5 k/uL (0-1.0); Monocytes % (A) 5 %; Neutrophils # (A) 6.2 k/uL (1.3-7.7); Neutrophils % (A) 69 %; Platelet Count 260 k/uL (150-450); RBC 4.69 m/uL (4.30-5.90); RDW 13.1 % (11.5-15.5)
[2023-06-27 06:08] LABS: ALT 50 U/L (4-49); AST 154 U/L (17-59); African American GFR (CKD) >90 (>60 ml/min/1.73 sqM); Albumin 3.4 g/dL (3.5-5.0); Alkaline Phosphatase 92 U/L (38-126); Anion Gap 7 mmol/L; Blood Urea Nitrogen 9 mg/dL (9-20); Calcium 8.8 mg/dL (8.4-10.2); Carbon Dioxide 23 mmol/L (22-30); Chloride 105 mmol/L (98-107); Glucose 101 mg/dL (74-99); Non-African American GFR(CKD) >90 (>60 ml/min/1.73 sqM); Potassium 4.2 mmol/L (3.5-5.1); Sodium 135 mmol/L (137-145); Total Bilirubin 0.9 mg/dL (0.2-1.3); Total Protein 6.2 g/dL (6.3-8.2)
--- NOTE | 2023-06-27 09:37 | P.PN ---
Subjective Progress Note Date: 06/27/23 The patient is a 43-year-old male who presented to the emergency room with acute onset of chest discomfort. He was found to have an inferior wall ST elevated myocardial infarction. Coronary angiogram showed distal RCA occlusion, as well as intermediate disease in the left circumflex. Dr. Prather perform stenting of the RCA, requiring a proximal and distal stents. Echocardiogram shows reduced ejection fraction and 40-45% with moderate LVH Patient was interviewed and examined resting comfortably in bed. He states he has been up ambulating around his room. He denies any chest discomfort. And is requesting to be discharged home. GENERAL: Well-appearing, well-nourished and in no acute distress. NECK: Supple without JVD or thyromegaly. LUNGS: Breath sounds clear to auscultation bilaterally. Respiration equal and unlabored. No wheezes, rales or rhonchi. HEART: Regular rate and rhythm without murmurs, rubs or gallops. S1 and S2 heard. EXTREMITIES: Normal range of motion, no edema. No clubbing or cyanosis. Peripheral pulses intact and strong. +2 right radial pulse TELEMETRY: Sinus rhythm LABS: WBC 9.0, hemoglobin 13.1, hematocrit 39.1, platelet 260, sodium 135, potassium 4.2, BUN 9, creatinine 0.64, magnesium 2.0, AST 154, ALT 50 IMPRESSION: Inferior wall ST elevated myocardial infarction Status post stenting of the RCA Ischemic cardiomyopathy, EF 40% Hypertension, LVH noted on echocardiogram Covid positive Current tobacco user Elevated liver enzymes PLAN: Increase losartan Patient may be downgraded to 3 [place] Consider discharge in the next 24 hours I am dictating on behalf of Dr Wilson Fisher's history/physical and assessment/plan. Objective - Vital Signs Vital signs: Vital Signs Temp 98.3 F 06/27/23 08:00 Pulse 81 06/27/23 08:00 Resp 20 06/27/23 08:00 BP 127/92 06/27/23 08:00 Pulse Ox 97 06/27/23 08:00 FiO2 Intake & Output 06/26/23 06/27/23 06/27/23 18:59 06:59 18:59 Intake Total 768 650 Output Total 500 0 0 Balance 268 650 0 Weight 83.915 kg 81 kg Intake: Intake, IV Titration 168 Amount Sodium Chloride 0.9% 1, 168 000 ml In Empty Bag 1 bag @ 1 ML/KG/HR 83.915 mls/ hr IV .[id number] [facility] Rx#: [id number] Oral 600 650 Output: Urine 400 0 0 Estimated Blood Loss 100 Other: # Voids 1 1 # Bowel Movements 1 - Labs CBC & Chem 7: 06/27/23 05:19 06/27/23 05:19 Labs: Abnormal Lab Results - Last 24 Hours (Table) 06/27/23 Range/Units 05:19 Sodium 135 L (137-145) mmol/L Creatinine 0.64 L (0.66-1.25) mg/dL Glucose 101 H (74-99) mg/dL AST 154 H (17-59) U/L ALT 50 H (4-49) U/L Total Protein 6.2 L (6.3-8.2) g/dL Albumin 3.4 L (3.5-5.0) g/dL
[2023-06-27] MEDS: LOSARTAN 25 MG TAB PO SCH ×2 (09:43→18:51)
[2023-06-27] MEDS: TICAGRELOR 90 MG TAB PO SCH ×2 (09:43→20:29)
[2023-06-27] MEDS: METOPROLOL SUCCINATE (ER) 25 MG TAB.ER.24H PO SCH ×2 (09:43→20:29)
[2023-06-27] MEDS: ASPIRIN 81 MG PO SCH (09:43)
[2023-06-27] MEDS: ATORVASTATIN 20 MG TAB PO SCH (09:43)
[2023-06-27] MEDS: SODIUM CHLORIDE 0.9% 1,000 ML in EMPTY BAG 1 BAG IV SCH ×2 (10:39→20:22)
--- NOTE | 2023-06-27 13:13 | P.PN ---
Subjective Progress Note Date: 06/27/23 patient is 43-year-old gentleman with no significant past medical history brought to the ER for chest pain. Patient stated that he has been having intermittent chest pains the last few days. Chest pain was brought about by him chopping wood, chest pain was central in location, intermittent, pressure-like, nonradiating. Aggravated by exertion. Initially patient decided to bear the chest pain but last night while sleeping the chest pain worsened and he decided to come to the ER. There was no complain of palpitation. There was no complain of Orthopnea or PND. Denies any nausea, vomiting abdominal pain. Initial lab work done in the ER showed WBC 7.8, hemoglobin 14.6, platelet count 296, sodium 137, potassium 3.8, BUN 12, creatinine 0.7 2, troponin 17.1 Influenza A not detected Influenza B not detected RSV not detected COVID-19 detected EKG done in the ER showed heart rate of 81, showed ST segment elevation in lead 3 and aVF, T-wave inversions seen in 1 and aVL Chest x-ray done in the ER showed no acute cardiopulmonary process medical laboratory specialist was activated and patient underwent cardiac cath that showed CADincluding 70% proximal and 100% mid RCA stenosis, S/p PCI proximal RCA with a 5.0 x 12 mm Xience MARY, PCI distal RCA with a 3.5 x 23mm Xience MARY, post dil ated with a 4.0 NC balloon Patient admitted to internal medicine service 06/27. Patient seen and examined. Laying comfortably in the bed. No acute issues overnight. Vital signs stable REVIEW OF SYSTEMS: CONSTITUTIONAL: No fever, no malaise,. CARDIOVASCULAR: No chest pain, no palpitations, no syncope. PULMONARY: No shortness of breath, no cough, GASTROINTESTINAL: No diarrhea, no nausea, no vomiting, no abdominal pain. NEUROLOGICAL: No headaches, no weakness, PHYSICAL EXAMINATION: GENERAL: The patient is alert and oriented x3, not in any acute distress. Well developed, well nourished. HEENT: Pupils are round and equally reacting to light. EOMI. No scleral icterus. No conjunctival pallor. Normocephalic, atraumatic. No pharyngeal erythema. No thyromegaly. CARDIOVASCULAR: S1 and S2 present. No murmurs, rubs, or gallops. PULMONARY: Chest is clear to auscultation, no wheezing or crackles. ABDOMEN: Soft, nontender, nondistended, normoactive bowel sounds. No palpable organomegaly. MUSCULOSKELETAL: No joint swelling or deformity. EXTREMITIES: No cyanosis, clubbing, or pedal edema. NEUROLOGICAL: Gross neurological examination did not reveal any focal deficits. SKIN: No rashes. Assessment and plan ST elevation [place] COVID-19 infection Hypertension Hyperlipidemia Monitor vital signs Monitor CBC Monitor CMP Continue telemetry monitoring Status post cardiac cath that showed CADincluding 70% proximal and 100% mid RCA stenosis, S/p PCI proximal RCA with a 5.0 x 12 mm Xience MARY, PCI distal RCA with a 3.5 x 23mm Xience MARY, post dilated with a 4.0 NC balloon Continue dual antiplatelet therapy Continue Lipitor Continue Toprol and losartan, dose of losartan increased by cardiology today Cardiology following Labs and medication were reviewed.. Continue same treatment. Continue with symptomatic treatment. Resume home medication. Monitor labs and vitals. DVT and GI prophylaxis. Further recommendations as per clinical course of the patient Dictation was produced using [employer] dictation software. please excuse any grammatical, word or spelling errors. Objective - Vital Signs Vital signs: Vital Signs Temp 98.3 F 06/27/23 08:00 Pulse 63 06/27/23 12:00 Resp 13 06/27/23 12:00 BP 127/89 06/27/23 11:00 Pulse Ox 94 L 06/27/23 12:32 FiO2 Intake & Output 06/26/23 06/27/23 06/27/23 18:59 06:59 18:59 Intake Total 768 650 Output Total 500 0 0 Balance 268 650 0 Weight 83.915 kg 81 kg Intake: Intake, IV Titration 168 Amount Sodium Chloride 0.9% 1, 168 000 ml In Empty Bag 1 bag @ 1 ML/KG/HR 83.915 mls/ hr IV .[id number] [facility] Rx#: [id number] Oral 600 650 Output: Urine 400 0 0 Estimated Blood Loss 100 Other: # Voids 1 1 1 # Bowel Movements 1 - Labs CBC & Chem 7: 06/27/23 05:19 06/27/23 05:19 Labs: Abnormal Lab Results - Last 24 Hours (Table) 06/27/23 Range/Units 05:19 Sodium 135 L (137-145) mmol/L Creatinine 0.64 L (0.66-1.25) mg/dL Glucose 101 H (74-99) mg/dL AST 154 H (17-59) U/L ALT 50 H (4-49) U/L Total Protein 6.2 L (6.3-8.2) g/dL Albumin 3.4 L (3.5-5.0) g/dL
[2023-06-27 22:52] VITALS: RESP 18
[2023-06-28] MEDS: SODIUM CHLORIDE 0.9% 1,000 ML in EMPTY BAG 1 BAG IV SCH (05:56)
[2023-06-28] MEDS ORDERED: LOSARTAN 25 MG TAB PO SCH (09:00)
[2023-06-28] MEDS: TICAGRELOR 90 MG TAB PO SCH (09:09)
[2023-06-28] MEDS: ATORVASTATIN 20 MG TAB PO SCH (09:10)
[2023-06-28] MEDS: ASPIRIN 81 MG PO SCH (09:10)
[2023-06-28] MEDS: LOSARTAN 25 MG TAB PO SCH (09:10)
[2023-06-28] MEDS: METOPROLOL SUCCINATE (ER) 25 MG TAB.ER.24H PO SCH (09:11)
[2023-06-28 09:28] VITALS: BP 104/60; PULSE 74; TEMP 97.8
--- NOTE | 2023-06-28 12:09 | P.PN ---
Subjective Progress Note Date: 06/28/23 The patient is a 43-year-old male who presented to the emergency room with acute onset of chest discomfort. He was found to have an inferior wall ST elevated myocardial infarction. Coronary angiogram showed distal RCA occlusion, as well as intermediate disease in the left circumflex. Dr. Prather perform stenting of the RCA, requiring a proximal and distal stents. Echocardiogram shows reduced ejection fraction and 40-45% with moderate LVH Patient was interviewed and examined resting comfortably in bed. He states he has been up ambulating around his room. He denies any chest discomfort. And is requesting to be discharged home. TELEMETRY: Sinus rhythm LABS: WBC 9.0, hemoglobin 13.1, hematocrit 39.1, platelet 260, sodium 135, potassium 4.2, BUN 9, creatinine 0.64, magnesium 2.0, AST 154, ALT 50 06/28 Patient has been transferred out of ICU seen today on the cardiac stepdown unit. He denies any lightheadedness or dizziness, no chest pain. He states he has been ambulating without any difficulty. Telemetry is sinus rhythm at 52, blood pressure 104/60, pulse ox 99% on room air. Yesterday losartan was increased to 25 mg daily GENERAL: Well-appearing, well-nourished and in no acute distress. NECK: Supple without JVD or thyromegaly. LUNGS: Breath sounds clear to auscultation bilaterally. Respiration equal and unlabored. No wheezes, rales or rhonchi. HEART: Regular rate and rhythm without murmurs, rubs or gallops. S1 and S2 heard. EXTREMITIES: Normal range of motion, no edema. No clubbing or cyanosis. Peripheral pulses intact and strong. +2 right radial pulse IMPRESSION: Inferior wall ST elevated myocardial infarction Status post stenting of the RCA Ischemic cardiomyopathy, EF 40% Hypertension, LVH noted on echocardiogram Covid positive Current tobacco user Elevated liver enzymes PLAN: Continue patient on current cardiac medications Patient is cleared for discharge from cardiology and will follow-up with Dr. Vaca in one to 2 weeks. I am dictating on behalf of Dr Wilson Fisher's history/physical and assessment/plan. Objective - Vital Signs Vital signs: Vital Signs Temp 98.0 F 06/28/23 04:00 Pulse 67 06/28/23 04:00 Resp 18 06/28/23 04:00 BP 110/68 01/04/24 04:00 Pulse Ox 98 06/28/23 04:00 FiO2 Intake & Output 06/27/23 06/28/23 06/28/23 18:59 06:59 18:59 Intake Total 138 10 120 Output Total 0 Balance 138 10 120 Intake: IV 20 10 0.9 10 Invasive Line 1 10 Invasive Line 2 10 Oral 118 120 Output: Urine 0 Other: Voiding Method Toilet # Voids 1 1 - Labs CBC & Chem 7: 06/27/23 05:19 06/27/23 05:19
--- NOTE | 2023-06-28 12:54 | P.DS ---
Providers Date of admission: 06/26/23 05:15 Expected date of discharge: 06/28/23 Attending physician: Mariana Tena Consults: 06/26/23 05:14 Consult Physician Stat Consulting Provider: Rajiv Vaca Consult Reason/Comments: STEMI Do you want consulting provider notified?: Yes 06/26/23 07:10 Consult Physician Routine Consulting Provider: [facility] Consult Reason/Comments: Post Interventional Patient Do you want consulting provider notified?: Already Contacted Primary care physician: Stated None Hospital Course: Discharge diagnoses; ST elevation NC COVID-19 infection Hypertension Hyperlipidemia Elevated LFTs Hospital course; patient is 43-year-old gentleman with no significant past medical history brou ght to the ER for chest pain. Patient stated that he has been having intermittent chest pains the last few days. Chest pain was brought about by him chopping wood, chest pain was central in location, intermittent, pressure-like, nonradiating. Aggravated by exertion. Initially patient decided to bear the chest pain but last night while sleeping the chest pain worsened and he decided to come to the ER. There was no complain of palpitation. There was no complain of Orthopnea or PND. Denies any nausea, vomiting abdominal pain. Initial lab work done in the ER showed WBC 7.8, hemoglobin 14.6, platelet count 296, sodium 137, potassium 3.8, BUN 12, creatinine 0.7 2, troponin 17.1 Influenza A not detected Influenza B not detected RSV not detected COVID-19 detected EKG done in the ER showed heart rate of 81, showed ST segment elevation in lead 3 and aVF, T-wave inversions seen in 1 and aVL Chest x-ray done in the ER showed no acute cardiopulmonary process lab scientist was activated and patient underwent cardiac cath that showed CADincluding 70% proximal and 100% mid RCA stenosis, S/p PCI proximal RCA with a 5.0 x 12 mm Xience MARY, PCI distal RCA with a 3.5 x 23mm Xience MARY, post dilated with a 4.0 NC balloon Patient admitted to internal medicine service 06/27. Patient seen and examined. Laying comfortably in the bed. No acute issues overnight. Vital signs stable 06/28. Patient seen and examined. Cardiology cleared the patient for discharge. Being discharged on aspirin, brilinta Toprol, losartan, Lipitor PHYSICAL EXAMINATION: GENERAL: The patient is alert and oriented x3, not in any acute distress. Well developed, well nourished. HEENT: Pupils are round and equally reacting to light. EOMI. No scleral icterus. No conjunctival pallor. Normocephalic, atraumatic. No pharyngeal erythema. No thyromegaly. CARDIOVASCULAR: S1 and S2 present. No murmurs, rubs, or gallops. PULMONARY: Chest is clear to auscultation, no wheezing or crackles. ABDOMEN: Soft, nontender, nondistended, normoactive bowel sounds. No palpable organomegaly. MUSCULOSKELETAL: No joint swelling or deformity. EXTREMITIES: No cyanosis, clubbing, or pedal edema. NEUROLOGICAL: Gross neurological examination did not reveal any focal deficits. SKIN: No rashes. Dictation was produced using [employer] dictation software. please excuse any grammatical, word or spelling errors. Patient Condition at Discharge: Good Plan - Discharge Summary Discharge Rx Participant: No New Discharge Prescriptions: New Aspirin 81 mg PO DAILY 30 Days #30 tab Ticagrelor [Brilinta] 90 mg PO BID 30 Days #60 tab Losartan [Cozaar] 25 mg PO DAILY 30 Days #30 tab Atorvastatin Calcium [Lipitor] 80 mg PO DAILY #30 tab Metoprolol Succinate (ER) [Toprol XL] 25 mg PO BID 30 Days #60 tab Discharge Medication List Aspirin 81 mg PO DAILY 30 Days #30 tab 06/28/23 [Rx] Atorvastatin Calcium [Lipitor] 80 mg PO DAILY #30 tab 06/28/23 [Rx] Losartan [Cozaar] 25 mg PO DAILY 30 Days #30 tab 06/28/23 [Rx] Metoprolol Succinate (ER) [Toprol XL] 25 mg PO BID 30 Days #60 tab 06/28/23 [Rx] Ticagrelor [Brilinta] 90 mg PO BID 30 Days #60 tab 06/28/23 [Rx] Follow up Appointment(s)/Referral(s): Rajiv Vaca MD [Medical Doctor] - 1 Week None,Stated [Primary Care Provider] - 1-2 days Discharge/Stand Alone Forms: Area PCPs Discharge Disposition: HOME SELF-CARE
== END 2023-06-28 12:16 | disposition home or self-care (01) | DRG 174 ==
LOC: EC 04:49 → 2SICU 05:15 → 3SCARD 06-27 14:22
PROVIDERS: ADMIT Internal Medicine; ATTEND Hospitalist
PROC: 027035Z Dilation of Coronary Artery, One Artery with Two Drug-eluting Intraluminal Devices, Percutaneous Approach (ICD-10-PCS; principal; 2023-06-26 05:27)
PROC: B240ZZ3 Ultrasonography of Single Coronary Artery, Intravascular (ICD-10-PCS; 2023-06-26 05:27)
PROC: 4A023N7 Measurement of Cardiac Sampling and Pressure, Left Heart, Percutaneous Approach (ICD-10-PCS; 2023-06-26 05:27)
PROC: B2111ZZ Fluoroscopy of Multiple Coronary Arteries using Low Osmolar Contrast (ICD-10-PCS; 2023-06-26 05:27)
DX: I21.19 ST elevation (STEMI) myocardial infarction involving other coronary artery of inferior wall (principal); E78.5 Hyperlipidemia, unspecified; F17.210 Nicotine dependence, cigarettes, uncomplicated; I11.9 Hypertensive heart disease without heart failure; I25.110 Atherosclerotic heart disease of native coronary artery with unstable angina pectoris; I25.5 Ischemic cardiomyopathy; U07.1 COVID-19; Z79.82 Long term (current) use of aspirin; Z79.899 Other long term (current) drug therapy
CPT/HCPCS: 71045; 80053; 83735; 84484; 85025; 85610; 85730; 87636; 92973; 92978; 93005; 93306; 93458; 96374; 96375; 99291

== ENCOUNTER → 2023-09-25 | Outpatient (CLI) | payer OTHER ==
[2023-09-25 16:33] LABS: ALT 44 U/L (10-49); AST 32 U/L (14-35); BUN/Creat Ratio 12.33 Ratio (12.00-20.00); Blood Urea Nitrogen 11.1 mg/dL (9.0-27.0); Calcium 10.4 mg/dL (8.7-10.3); Chloride 101 mmol/L (96-109); Chol/HDL Ratio 3.78 Ratio; Glucose 110 mg/dL (70-110); LDL Cholesterol,Calculated 90.6 mg/dL (0.0-131.0); Potassium 4.7 mmol/L (3.5-5.5); Sodium 140 mmol/L (135-145)
== END | disposition home or self-care (01) ==
LOC: LABWHC1 09:33
PROVIDERS: ATTEND Student in an Organized Health Care Education/Training Program
DX: I10 Essential (primary) hypertension (principal); E78.2 Mixed hyperlipidemia; D64.9 Anemia, unspecified; E11.9 Type 2 diabetes mellitus without complications
CPT/HCPCS: 36415; 80048; 80061; 84450; 84460

== ENCOUNTER 2023-12-09 22:48 | Emergency (ER) | payer OTHER ==
[2023-12-09 22:57] VITALS: RESP 16; TEMP 98.2
--- NOTE | 2023-12-09 23:21 | ED ---
Extremity Problem HPI - General Chief complaint: Extremity Problem,Nontraumatic Stated complaint: Right Hip pain Time Seen by Provider: 12/09/23 23:00 Source: patient, RN notes reviewed Mode of arrival: ambulatory Limitations: no limitations - History of Present Illness Initial comments: 43-year-old male presenting to the ED with a chief complaint of right hip pain. Patient reports pain of the right hip ongoing for the past few months. States that he has just been putting it off however lately has been trying to hurt more especially with ambulation which is prompting presentation to the ED for further evaluation. Denies fever or chills. Denies any recent injury or trauma. No other complaints at this time. - Related Data Previous Rx's Medication Instructions Recorded Aspirin 81 mg PO DAILY 30 Days #30 tab 06/28/23 Atorvastatin Calcium [Lipitor] 80 mg PO DAILY #30 tab 06/28/23 Losartan [Cozaar] 25 mg PO DAILY 30 Days #30 tab 06/28/23 Metoprolol Succinate (ER) [Toprol 25 mg PO BID 30 Days #60 tab 06/28/23 XL] Ticagrelor [Brilinta] 90 mg PO BID 30 Days #60 tab 06/28/23 Ibuprofen [Motrin] 600 mg PO Q8HR PRN #30 tab 12/10/23 Allergies Allergy/AdvReac Type Severity Reaction Status Date / Time No Known Allergies Allergy Verified 12/09/23 22:54 Review of Systems ROS Statement: Those systems with pertinent positive or pertinent negative responses have been documented in the HPI. ROS Other: All systems not noted in ROS Statement are negative. Past Medical History Past Medical History: No Reported History, Hyperlipidemia, Hypertension History of Any Multi-Drug Resistant Organisms: None Reported Past Surgical History: Back Surgery, Heart Catheterization With Stent Past Anesthesia/Blood Transfusion Reactions: No Reported Reaction Past Psychological History: No Psychological Hx Reported Smoking Status: Current every day smoker Past Alcohol Use History: None Reported Past Drug Use History: Marijuana General Exam Limitations: no limitations General appearance: alert, in no apparent distress Eye exam: Present: normal appearance Neck exam: Present: normal inspection Respiratory exam: Present: normal lung sounds bilaterally Cardiovascular Exam: Present: regular rate GI/Abdominal exam: Present: soft, normal bowel sounds. Absent: distended, tenderness, guarding, rebound, rigid Extremities exam: Present: other (Pelvis stable. DP/PT pulses intact. Ambulates without difficulty. ) Neurological exam: Present: alert, oriented X3 Skin exam: Present: warm, dry Course Vital Signs 12/09/23 22:55 Temperature 98.2 F Pulse Rate 89 Respiratory 16 Rate Blood Pressure 150/90 O2 Sat by Pulse 97 Oximetry Medical Decision Making - Medical Decision Making Was pt. sent in by a medical professional or institution (, [facility], SLOT TECHNICIAN, urgent care, hospital, or shelter...) When possible be specific @ -No Did you speak to anyone other than the patient for history (EMS, parent, family, police, friend...)? What history was obtained from this source @ -No Did you review nursing and triage notes (agree or disagree)? Why? @ -I reviewed and agree with nursing and triage notes Were old charts reviewed (outside hosp., previous admission, EMS record, old EKG, old radiological studies, urgent care reports/EKG's, shelter records)? Report findings @ -No old charts were reviewed Differential Diagnosis (chest pain, altered mental status, abdominal pain women, abdominal pain men, vaginal bleeding, weakness, fever, dyspnea, syncope, headache, dizziness, GI bleed, back pain, seizure, CVA, palpatations, mental health, musculoskeletal)? @ -Differential Musculoskeletal Muscular strain, contusion, ligament sprain, fracture, arthritis, septic arthritis, bursitis, cellulitis, muscle spasm, nerve compression, DVT, arterial occlusion, herpes zoster, electrolyte abnormality, tumor.... This is not meant to be in all inclusive list EKG interpreted by me (3pts min.). @ -As above X-rays interpreted by me (1pt min.). @ -X-ray of the pelvis and femur interpreted me which revealed no evidence of acute finding however does show severe osteoarthritis with [id number] articulation. CT interpreted by me (1pt min.). @ -None done U/S interpreted by me (1pt. min.). @ -None done What testing was considered but not performed or refused? (CT, X-rays, U/S, labs)? Why? @ -None What meds were considered but not given or refused? Why? @ -None Did you discuss the management of the patient with other professionals (professionals i.e. , [facility], SLOT TECHNICIAN, lab, RT, psych nurse, social work case manager, crew boss, teacher, agricultural extension officer, correctional counselor/case manager)? Give summary @ -No Was smoking cessation discussed for >3mins.? @ -No Was critical care preformed (if so, how long)? @ -No Were there social determinants of health that impacted care today? How? (Homelessness, low income, unemployed, alcoholism, drug addiction, transportation, low edu. Level, literacy, decrease access to med. care, usp, rehab)? @ -No Was there de-escalation of care discussed even if they declined (Discuss DNR or withdrawal of care, Hospice)? DNR status @ -No What co-morbidities impacted this encounter? (DM, HTN, Smoking, COPD, CAD, Cancer, CVA, ARF, Chemo, Hep., AIDS, mental health diagnosis, sleep apnea, morbid obesity)? @ -None Was patient admitted / discharged? Hospital course, mention meds given and route, prescriptions, significant lab abnormalities, going to OR and other pertinent info. @ -Discharge 43-year-old male presenting to the ED with a chief complaint of right hip pain ongoing for the last few months which she reports he has been putting off. No new injury or traumas. Imaging was performed which does show evidence of severe osteoarthritis with [id number] articulation. At this time patient is ambulating well without difficulty and reports minimal pain. Discharged home with prescription for ibuprofen and referral to see orthopedics. Discussed strict return precautions with patient who verbalized agreement. Undiagnosed new problem with uncertain prognosis? @ -No Drug Therapy requiring intensive monitoring for toxicity (Heparin, Nitro, Insulin, Cardizem)? @ -No Were any procedures done? @ -No Diagnosis/symptom? @ -Right hip pain Acute, or Chronic, or Acute on Chronic? @ -Acute on chronic Uncomplicated (without systemic symptoms) or Complicated (systemic symptoms)? @ -Uncomplicated Side effects of treatment? @ -No Exacerbation, Progression, or Severe Exacerbation? @ -No Poses a threat to life or bodily function? How? (Chest pain, [place], [place], pneumonia, PE, COPD, DKA, ARF, appy, cholecystitis, CVA, Diverticulitis, Homicidal, Suicidal, threat to staff... and all critical care pts) @ -Unlikely at this time Disposition Clinical Impression: Right hip pain Disposition: HOME SELF-CARE Condition: Good Instructions (If sedation given, give patient instructions): Osteoarthritis (ED) Additional Instructions: Please return to the Emergency Department if symptoms worsen or any other concerns. Please follow-up with orthopedics. Prescriptions: Ibuprofen [Motrin] 600 mg PO Q8HR PRN #30 tab PRN Reason: Pain Is patient prescribed a controlled substance at d/c from ED?: No Referrals: None,Stated [Primary Care Provider] - 1-2 days Daniele Schreiber MD [Medical Doctor] - 1-2 days Rashel Selby DO [Doctor of Osteopathic Medicine] - 1-2 days Time of Disposition: 01:17
--- NOTE | 2023-12-10 00:16 | XR ---
EXAM: XR Pelvis, 1 or 2 Views CLINICAL HISTORY: ITS.REASON XR Reason: r hip/thigh pain TECHNIQUE: Frontal view of the pelvis. COMPARISON: No relevant prior studies available. FINDINGS: Bones/joints: Moderate-severe right and mild left hip osteoarthritis. Prominence of the bilateral femoral head-neck junctions, raising the possibility of cam type femoral acetabular impingement. No acute fracture or dislocation. Soft tissues: Unremarkable. IMPRESSION: Moderate-severe right and mild left hip osteoarthritis. Prominence of the bilateral femoral head-neck junctions, raising the possibility of cam type femoral acetabular impingement.
--- NOTE | 2023-12-10 00:59 | XR ---
EXAM: XR Right Femur, 2 Views CLINICAL HISTORY: ITS.REASON XR Reason: r hip/thigh pain TECHNIQUE: Frontal and lateral views of the right femur. COMPARISON: No relevant prior studies available. FINDINGS: Bones/joints: Severe osteoarthritis of the RIGHT hip joint, with bone- on-bone articulation. No fracture or subluxation. Soft tissues: Unremarkable. IMPRESSION: 1. No fracture or subluxation. 2. Severe osteoarthritis of the RIGHT hip joint, with kygn-ho-[id number] articulation.
[2023-12-10] MEDS: IBUPROFEN 600 MG STARTER PACK 4 TAB BTL PO STA (01:22)
[2023-12-10 01:28] VITALS: BP 131/79; PULSE 68
== END 2023-12-10 01:49 | disposition home or self-care (01) ==
LOC: EC 22:48
DX: M25.551 Pain in right hip (principal); F17.200 Nicotine dependence, unspecified, uncomplicated
CPT/HCPCS: 72170; 99283

== ENCOUNTER 2024-01-07 17:18 | Emergency (ER) | payer OTHER ==
[2024-01-07 17:47] VITALS: RESP 18; TEMP 98.2
--- NOTE | 2024-01-07 17:55 | ED ---
Skin/Abscess/FB HPI - General Source: patient, RN notes reviewed Mode of arrival: ambulatory Limitations: no limitations <Nazia Guzman - Last Filed: 01/07/24 17:54> - General Source: patient, RN notes reviewed Mode of arrival: ambulatory Limitations: no limitations <Adolfo Toro - Last Filed: 01/07/24 19:55> - General Chief complaint: Skin/Abscess/Foreign Body Stated complaint: Insect Bite chest Time Seen by Provider: 01/07/24 17:54 - History of Present Illness Initial comments: Quick note: 43-year-old male presented to ER with a chief complaint of a bug bite. Patient states his right upper chest is erythematous and believes he was bit by something. He states this been going on for couple of days. Denies any fevers or chills. (Nazia Guzman) Patient is a 43-year-old male presenting to the emergency department with concern for insect bite. Patient states this occurred 2 or 3 days ago. Patient does have some itching and discomfort of his right upper chest. No fever. No history of similar symptoms previously. No other areas of involvement. (Adolfo Toro) - Related Data Previous Rx's Medication Instructions Recorded Aspirin 81 mg PO DAILY 30 Days #30 tab 06/28/23 Atorvastatin Calcium [Lipitor] 80 mg PO DAILY #30 tab 06/28/23 Losartan [Cozaar] 25 mg PO DAILY 30 Days #30 tab 06/28/23 Metoprolol Succinate (ER) [Toprol 25 mg PO BID 30 Days #60 tab 06/28/23 XL] Ticagrelor [Brilinta] 90 mg PO BID 30 Days #60 tab 06/28/23 Ibuprofen [Motrin] 600 mg PO Q8HR PRN #30 tab 12/10/23 Allergies Allergy/AdvReac Type Severity Reaction Status Date / Time No Known Allergies Allergy Verified 01/07/24 17:47 Review of Systems ROS Other: All systems not noted in ROS Statement are negative. <Nazia Guzman - Last Filed: 01/07/24 17:54> ROS Other: All systems not noted in ROS Statement are negative. Constitutional: Denies: fever Eyes: Denies: eye pain ENT: Denies: ear pain Respiratory: Denies: cough Cardiovascular: Denies: chest pain Endocrine: Denies: fatigue Gastrointestinal: Denies: abdominal pain Genitourinary: Denies: urgency Skin: Reports: as per HPI <Adolfo Toro - Last Filed: 01/07/24 19:55> ROS Statement: Those systems with pertinent positive or pertinent negative responses have been documented in the HPI. Past Medical History Past Medical History: No Reported History, Hyperlipidemia, Hypertension History of Any Multi-Drug Resistant Organisms: None Reported Past Surgical History: Back Surgery, Heart Catheterization With Stent Past Anesthesia/Blood Transfusion Reactions: No Reported Reaction Past Psychological History: No Psychological Hx Reported Smoking Status: Current every day smoker Past Alcohol Use History: None Reported Past Drug Use History: Marijuana <Nazia Guzman - Last Filed: 01/07/24 17:54> General Exam Limitations: no limitations <Nazia Guzman - Last Filed: 01/07/24 17:54> Limitations: no limitations General appearance: alert, in no apparent distress Head exam: Present: normocephalic Eye exam: Present: normal appearance Respiratory exam: Present: normal lung sounds bilaterally Cardiovascular Exam: Present: regular rate, normal rhythm Extremities exam: Present: normal inspection Neurological exam: Present: alert Psychiatric exam: Present: normal affect, normal mood Skin exam: Present: other (Right upper chest with small pinpoint puncture type area. There is trace swelling. There is erythema extending approximately 8 cm inferior and 2 cm wide) <Adolfo Toro - Last Filed: 01/07/24 19:55> - General Exam Comments Initial Comments: Visual Physical Exam Vital signs reviewed General: Well-appearing, nontoxic, no acute distress. Head: Normocephalic, atraumatic Eyes: PERRLA, EOMI ENT: Airway patent Chest: Nonlabored breathing Skin: No visual rash, normal skin tone Neuro: Alert and oriented 3 Musculoskeletal: No gross abnormalities (Nazia Guzman) Course Vital Signs 01/07/24 17:45 Temperature 98.2 F Pulse Rate 67 Respiratory 18 Rate Blood Pressure 163/93 O2 Sat by Pulse 97 Oximetry Medical Decision Making <Nazia Guzman - Last Filed: 01/07/24 17:54> <Adolfo Toro - Last Filed: 01/07/24 19:55> - Medical Decision Making I performed the quick note portion of this chart. Electronically signed by Nazia Guzman PA-C (Nazia Guzman) Was pt. sent in by a medical professional or institution ([facility], ATTORNEY LAWYER, urgent care, hospital, or retirement...) When possible be specific @ -No Did you speak to anyone other than the patient for history (EMS, parent, family, police, friend...)? What history was obtained from this source @ -No Did you review nursing and triage notes (agree or disagree)? Why? @ -I reviewed and agree with nursing and triage notes Were old charts reviewed (outside hosp., previous admission, EMS record, old EKG, old radiological studies, urgent care reports/EKG's, retirement records)? Report findings @ -No old charts were reviewed Differential Diagnosis (chest pain, altered mental status, abdominal pain women, abdominal pain men, vaginal bleeding, weakness, fever, dyspnea, syncope, headache, dizziness, GI bleed, back pain, seizure, CVA, palpatations, mental health, musculoskeletal)? @ -Differential Fever: Pneumonia, viral URI, endocarditis, myocarditis, pericarditis, otitis, sinusitis, peritonsillar Abscess, retropharyngeal Abscess, epiglottitis, peritonitis, appendicitis, Anastasiya cystitis, diverticulitis, hepatitis, colitis, UTI, PID, TOA, pyelonephritis, prostatitis, epididymitis, meningitis, encephalitis, pulmonary embolism, CVA, thyroid storm, pancreatitis, adrenal crisis, cavernous sinus thrombosis, this is not meant to be an all-inclusive list. EKG interpreted by me (3pts min.). @ -As above X-rays interpreted by me (1pt min.). @ -None done CT interpreted by me (1pt min.). @ -None done U/S interpreted by me (1pt. min.). @ -None done What testing was considered but not performed or refused? (CT, X-rays, U/S, labs)? Why? @ -None What meds were considered but not given or refused? Why? @ -None Did you discuss the management of the patient with other professionals (professionals i.e. [facility], ATTORNEY LAWYER, lab, RT, psych nurse, social work associate, internal medicine specialist, teacher, event security officer, window caser)? Give summary @ -No Was smoking cessation discussed for >3mins.? @ -No Was critical care preformed (if so, how long)? @ -No Were there social determinants of health that impacted care today? How? (Homelessness, low income, unemployed, alcoholism, drug addiction, transportation, low edu. Level, literacy, decrease access to med. care, half-way, rehab)? @ -No Was there de-escalation of care discussed even if they declined (Discuss DNR or withdrawal of care, Hospice)? DNR status @ -No What co-morbidities impacted this encounter? (DM, HTN, Smoking, COPD, CAD, Cancer, CVA, ARF, Chemo, Hep., AIDS, mental health diagnosis, sleep apnea, morbid obesity)? @ -None Was patient admitted / discharged? Hospital course, mention meds given and route, prescriptions, significant lab abnormalities, going to OR and other pertinent info. @ -Patient presents with possible bug bite. Concern for cellulitis right upper chest. No drainable abscess or pustule. Patient will be discharged with antibiotics Undiagnosed new problem with uncertain prognosis? @ -No Drug Therapy requiring intensive monitoring for toxicity (Heparin, Nitro, Insulin, Cardizem)? @ -No Were any procedures done? @ -No Diagnosis/symptom? @ -Cellulitis Acute, or Chronic, or Acute on Chronic? @ -Acute Uncomplicated (without systemic symptoms) or Complicated (systemic symptoms)? @ -Default Side effects of treatment? @ -No Exacerbation, Progression, or Severe Exacerbation? @ -No Poses a threat to life or bodily function? How? (Chest pain, [place], [place], pneumonia, PE, COPD, DKA, ARF, appy, cholecystitis, CVA, Diverticulitis, Homicidal, Suicidal, threat to staff... and all critical care pts) @ -No (Adolfo Toro) Disposition <Nazia Guzman - Last Filed: 01/07/24 17:54> Is patient prescribed a controlled substance at d/c from ED?: No Time of Disposition: 19:55 <Adolfo Toro - Last Filed: 01/07/24 19:55> Clinical Impression: Cellulitis Disposition: ADMITTED IP TO THIS HOSP Referrals: None,Stated [Primary Care Provider] - 1-2 days
[2024-01-07] MEDS: SULFAMETHOX-TMP 800-160MG 1 EACH TAB PO STA (19:57)
--- NOTE | 2024-01-07 19:57 | ED ---
Disposition Clinical Impression: Cellulitis Disposition: HOME SELF-CARE Condition: Stable Instructions (If sedation given, give patient instructions): Cellulitis (ED) Additional Instructions: Prescription sent to pharmacy. Please do follow-up with your primary care physician in the next 2 to 3 days for recheck. Return for increased pain, redness, swelling, fever, worsening or changing symptoms or other concerns. If symptoms worsen you may need opening of the area or IV antibiotics. Prescriptions: Sulfamethox-Tmp 800-160Mg [Bactrim DS 800-160 mg] 2 each PO Q12HR #40 tab Is patient prescribed a controlled substance at d/c from ED?: No Referrals: Marco Antonio Dawn MD [STAFF PHYSICIAN] - 1-2 days Time of Disposition: 19:57
[2024-01-07 20:05] VITALS: BP 168/105; PULSE 63
== END 2024-01-07 20:00 | disposition home or self-care (01) ==
LOC: EC 17:18
DX: L03.313 Cellulitis of chest wall (principal); F17.200 Nicotine dependence, unspecified, uncomplicated; W57.XXXA Bitten or stung by nonvenomous insect and other nonvenomous arthropods, initial encounter
CPT/HCPCS: 99281; 99282

== ENCOUNTER 2024-01-24 13:57 | Observation (INO) | payer OTHER ==
--- NOTE | 2024-01-24 14:27 | ED ---
General Adult HPI - General Chief complaint: Syncope Stated complaint: syncope Time Seen by Provider: 01/24/24 14:05 Source: patient, EMS, RN notes reviewed Mode of arrival: EMS Limitations: no limitations - History of Present Illness Initial comments: Patient is a 43-year-old male present to the emergency department with a syncopal episode. Episode occurred just prior to arrival. 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 Exertion was moderate. Patient did smoke some marijuana prior to this however does that daily. Patient did feel lightheaded prior to the episode. No injury. Patient states he was unresponsive for around a minute. No chest pain or dyspnea. No abdominal pain or back pain. No headache or weakness or confusion. No history of similar symptoms previously. Patient did have myocardial infarction in June - Related Data Home Medications Medication Instructions Recorded Confirmed Ezetimibe [Zetia] 10 mg PO DAILY 01/24/24 01/24/24 Metoprolol Succinate (ER) [Toprol 25 mg PO DAILY 01/24/24 01/24/24 XL] Previous Rx's Medication Instructions Recorded Aspirin 81 mg PO DAILY 30 Days #30 tab 06/28/23 Atorvastatin Calcium [Lipitor] 80 mg PO DAILY #30 tab 06/28/23 Losartan [Cozaar] 25 mg PO DAILY 30 Days #30 tab 06/28/23 Ticagrelor [Brilinta] 90 mg PO BID 30 Days #60 tab 06/28/23 Allergies Allergy/AdvReac Type Severity Reaction Status Date / Time No Known Allergies Allergy Verified 01/24/24 15:35 Review of Systems ROS Statement: Those systems with pertinent positive or pertinent negative responses have been documented in the HPI. ROS Other: All systems not noted in ROS Statement are negative. Constitutional: Denies: fever Eyes: Denies: eye pain ENT: Denies: ear pain Respiratory: Denies: cough, dyspnea Cardiovascular: Denies: chest pain, palpitations Endocrine: Denies: fatigue Past Medical History Past Medical History: No Reported History, Hyperlipidemia, Hypertension, Myocardial Infarction ([place]) Additional Past Medical History / Comment(s): 65% heart valve blockage. [place] June 2023 History of Any Multi-Drug Resistant Organisms: None Reported Past Surgical History: Back Surgery, Heart Catheterization With Stent Past Anesthesia/Blood Transfusion Reactions: No Reported Reaction Past Psychological History: No Psychological Hx Reported Smoking Status: Current every day smoker Past Alcohol Use History: None Reported Past Drug Use History: Marijuana General Exam Limitations: no limitations General appearance: alert Head exam: Present: atraumatic Eye exam: Present: normal appearance, PERRL, EOMI Neck exam: Present: normal inspection. Absent: tenderness Respiratory exam: Present: normal lung sounds bilaterally Cardiovascular Exam: Present: regular rate, normal rhythm, tachycardia, normal heart sounds Expanded Peripheral pulses: 2+: Radial (R), Radial (L), Posterior Tibialis (R), Posterior Tibialis (L) GI/Abdominal exam: Present: soft. Absent: tenderness Extremities exam: Present: normal inspection. Absent: pedal edema, calf tenderness Neurological exam: Present: alert, oriented X3, CN II-XII intact. Absent: motor sensory deficit Psychiatric exam: Present: normal affect, normal mood Skin exam: Present: normal color Course Vital Signs 01/24/24 01/24/24 14:01 15:18 Temperature 98.0 F Pulse Rate 112 H 101 H Respiratory 18 17 Rate Blood Pressure 156/108 140/98 O2 Sat by Pulse 97 97 Oximetry EKG Findings - EKG Results: EKG: interpreted by ERMD (Access. Septal Q waves.), sinus rhythm, normal ST/T, not changed from: (EKG in June does show inferior Q waves as well however there is ST elevation on those) EKG shows: tachycardia Medical Decision Making - Medical Decision Making Was pt. sent in by a medical professional or institution (, PA, INSURANCE PROFESSIONAL, urgent care, hospital, or fci...) When possible be specific @ -No Did you speak to anyone other than the patient for history (EMS, parent, family, police, friend...)? What history was obtained from this source @ -No Did you review nursing and triage notes (agree or disagree)? Why? @ -I reviewed and agree with nursing and triage notes Were old charts reviewed (outside hosp., previous admission, EMS record, old EKG, old radiological studies, urgent care reports/EKG's, fci records)? Report findings @ -Previous EKG and admission reviewed Differential Diagnosis (chest pain, altered mental status, abdominal pain women, abdominal pain men, vaginal bleeding, weakness, fever, dyspnea, syncope, headache, dizziness, GI bleed, back pain, seizure, CVA, palpatations, mental health, musculoskeletal)? @ -Differential Syncope: Valvular disease, hypertrophic cardiomyopathy, pulmonary embolism, tamponade, tachycardia, bradycardia, [place], hypovolemia, hemorrhage, dissection, anemia, intracranial hemorrhage, seizure, hypoglycemia, carbon monoxide poisoning, this is not meant to be an all-inclusive list. EKG interpreted by me (3pts min.). @ -As above X-rays interpreted by me (1pt min.). @ -Chest x-ray shows no acute process CT interpreted by me (1pt min.). @ -None done U/S interpreted by me (1pt. min.). @ -None done What testing was considered but not performed or refused? (CT, X-rays, U/S, labs)? Why? @ -None What meds were considered but not given or refused? Why? @ -None Did you discuss the management of the patient with other professionals (professionals i.e. , PA, INSURANCE PROFESSIONAL, lab, RT, psych nurse, foster care social worker, group work program aide, teacher, project officer, case resource manager)? Give summary @ -Case was discussed with Dr. Bailey who will admit covering hospital call Was smoking cessation discussed for >3mins.? @ -No Was critical care preformed (if so, how long)? @ -No Were there social determinants of health that impacted care today? How? (Homelessness, low income, unemployed, alcoholism, drug addiction, transportation, low edu. Level, literacy, decrease access to med. care, [place] [facility], rehab)? @ -No Was there de-escalation of care discussed even if they declined (Discuss DNR or withdrawal of care, Hospice)? DNR status @ -No What co-morbidities impacted this encounter? (DM, HTN, Smoking, COPD, CAD, Cancer, CVA, ARF, Chemo, Hep., AIDS, mental health diagnosis, sleep apnea, morbid obesity)? @ -History of myocardial infarction 8 months ago Was patient admitted / discharged? Hospital course, mention meds given and route, prescriptions, significant lab abnormalities, going to OR and other pertinent info. @ -Hospital course Undiagnosed new problem with uncertain prognosis? @ -No Drug Therapy requiring intensive monitoring for toxicity (Heparin, Nitro, Insulin, Cardizem)? @ -No Were any procedures done? @ -No Diagnosis/symptom? @ -Syncope Acute, or Chronic, or Acute on Chronic? @ -Acute Uncomplicated (without systemic symptoms) or Complicated (systemic symptoms)? @ -Default Side effects of treatment? @ -No Exacerbation, Progression, or Severe Exacerbation? @ -No Poses a threat to life or bodily function? How? (Chest pain, [place], [place], pneumonia, PE, COPD, DKA, ARF, appy, cholecystitis, CVA, Diverticulitis, Homicidal, Suicidal, threat to staff... and all critical care pts) @ -Threat to cardiac function - Lab Data Result diagrams: 01/24/24 14:22 01/24/24 14:22 Lab Results 01/24/24 01/24/24 01/24/24 Range/Units 14:22 14:22 14:22 WBC 7.0 (3.8-10.6) k/uL RBC 4.90 (4.30-5.90) m/uL Hgb 13.9 (13.0-17.5) gm/dL Hct 42.1 (39.0-53.0) % MCV 85.9 (80.0-100.0) fL MCH 28.3 (25.0-35.0) pg MCHC 33.0 (31.0-37.0) g/dL RDW 13.9 (11.5-15.5) % Plt Count 174 (150-450) k/uL MPV 6.7 Neutrophils % 65 % Lymphocytes % 25 % Monocytes % 7 % Eosinophils % 1 % Basophils % 1 % Neutrophils # 4.6 (1.3-7.7) k/uL Lymphocytes # 1.8 (1.0-4.8) k/uL Monocytes # 0.5 (0-1.0) k/uL Eosinophils # 0.1 (0-0.7) k/uL Basophils # 0.1 (0-0.2) k/uL PT 10.9 (10.0-12.5) sec INR 1.0 (<1.2) APTT 17.6 L (22.0-30.0) sec D-Dimer 0.39 (<0.60) mg/L FEU Sodium 138 (137-145) mmol/L Potassium 3.7 (3.5-5.1) mmol/L Chloride 106 (98-107) mmol/L Carbon Dioxide 18 L (22-30) mmol/L Anion Gap 14 mmol/L BUN 14 (9-20) mg/dL Creatinine 1.17 (0.66-1.25) mg/dL Est GFR (CKD-EPI)AfAm 87 (>60 ml/min/1.73 sqM) Est GFR (CKD-EPI)NonAf 75 (>60 ml/min/1.73 sqM) Glucose 165 H (74-99) mg/dL Calcium 10.3 H (8.4-10.2) mg/dL Magnesium 2.1 (1.6-2.3) mg/dL Total Bilirubin 1.1 (0.2-1.3) mg/dL AST 37 (17-59) U/L ALT 38 (4-49) U/L Alkaline Phosphatase 112 (38-126) U/L Troponin I (0.000-0.034) ng/mL Total Protein 8.0 (6.3-8.2) g/dL Albumin 5.0 (3.5-5.0) g/dL 01/24/24 Range/Units 14:22 WBC (3.8-10.6) k/uL RBC (4.30-5.90) m/uL Hgb (13.0-17.5) gm/dL Hct (39.0-53.0) % MCV (80.0-100.0) fL MCH (25.0-35.0) pg MCHC (31.0-37.0) g/dL RDW (11.5-15.5) % Plt Count (150-450) k/uL MPV Neutrophils % % Lymphocytes % % Monocytes % % Eosinophils % % Basophils % % Neutrophils # (1.3-7.7) k/uL Lymphocytes # (1.0-4.8) k/uL Monocytes # (0-1.0) k/uL Eosinophils # (0-0.7) k/uL Basophils # (0-0.2) k/uL PT (10.0-12.5) sec INR (<1.2) APTT (22.0-30.0) sec D-Dimer (<0.60) mg/L FEU Sodium (137-145) mmol/L Potassium (3.5-5.1) mmol/L Chloride (98-107) mmol/L Carbon Dioxide (22-30) mmol/L Anion Gap mmol/L BUN (9-20) mg/dL Creatinine (0.66-1.25) mg/dL Est GFR (CKD-EPI)AfAm (>60 ml/min/1.73 sqM) Est GFR (CKD-EPI)NonAf (>60 ml/min/1.73 sqM) Glucose (74-99) mg/dL Calcium (8.4-10.2) mg/dL Magnesium (1.6-2.3) mg/dL Total Bilirubin (0.2-1.3) mg/dL AST (17-59) U/L ALT (4-49) U/L Alkaline Phosphatase (38-126) U/L Troponin I 0.019 (0.000-0.034) ng/mL Total Protein (6.3-8.2) g/dL Albumin (3.5-5.0) g/dL Disposition Clinical Impression: Syncope Disposition: ADMITTED IP TO THIS [facility] Is patient prescribed a controlled substance at d/c from ED?: No Referrals: None,Stated [Primary Care Provider] - 1-2 days Time of Disposition: 16:28
[2024-01-24] MEDS: SODIUM CHLORIDE 0.9% 1,000 ML IV STA (14:36)
[2024-01-24 14:44] LABS: Basophils # (A) 0.1 k/uL (0-0.2); Basophils % (A) 1 %; Eosinophils # (A) 0.1 k/uL (0-0.7); Eosinophils % (A) 1 %; HCT 42.1 % (39.0-53.0); HGB 13.9 gm/dL (13.0-17.5); Lymphocytes # (A) 1.8 k/uL (1.0-4.8); Lymphocytes % (A) 25 %; MCH 28.3 pg (25.0-35.0); MCV 85.9 fL (80.0-100.0); Mean Platelet Volume 6.7; Monocytes # (A) 0.5 k/uL (0-1.0); Monocytes % (A) 7 %; Neutrophils # (A) 4.6 k/uL (1.3-7.7); Neutrophils % (A) 65 %; Platelet Count 174 k/uL (150-450); RDW 13.9 % (11.5-15.5)
[2024-01-24 14:59] LABS: ALT 38 U/L (4-49); AST 37 U/L (17-59); African American GFR (CKD) 87 (>60 ml/min/1.73 sqM); Alkaline Phosphatase 112 U/L (38-126); Anion Gap 14 mmol/L; Blood Urea Nitrogen 14 mg/dL (9-20); Calcium 10.3 mg/dL (8.4-10.2); Carbon Dioxide 18 mmol/L (22-30); Chloride 106 mmol/L (98-107); Glucose 165 mg/dL (74-99); Magnesium 2.1 mg/dL (1.6-2.3); Non-African American GFR(CKD) 75 (>60 ml/min/1.73 sqM); Potassium 3.7 mmol/L (3.5-5.1); Sodium 138 mmol/L (137-145); Total Bilirubin 1.1 mg/dL (0.2-1.3)
[2024-01-24 15:04] LABS: Prothrombin Time 10.9 sec (10.0-12.5)
[2024-01-24 15:17] LABS: Partial Thromboplastin Time 17.6 sec (22.0-30.0)
--- NOTE | 2024-01-24 16:03 | XR ---
EXAMINATION TYPE: XR chest 2V DATE OF EXAM: 01/24/2024 2:46 PM CLINICAL INDICATION:Male, 43 years old with history of syncope; [facility] COMPARISON: Chest radiographs from 06/26/2023. TECHNIQUE: XR chest 2V Frontal view of the chest. FINDINGS: Lungs/Pleura: There is no evidence of pleural effusion, focal consolidation, or pneumothorax. Pulmonary vascularity: Unremarkable. Heart/mediastinum: Cardiomediastinal silhouette is unremarkable. Musculoskeletal: No acute osseous pathology. Other findings: None IMPRESSION: No acute cardiopulmonary disease/process.
[2024-01-24] MEDS ORDERED: ACETAMINOPHEN TAB 325 MG TAB PO PRN (16:28)
[2024-01-24] MEDS ORDERED: NALOXONE 0.4 MG/ML 1 ML VIAL IV PRN (16:28)
[2024-01-24] MEDS: METOPROLOL SUCCINATE (ER) 25 MG TAB.ER.24H PO STA (17:01)
--- NOTE | 2024-01-24 18:35 | P.HPIM ---
History of Present Illness H&P Date: 01/24/24 Chief Complaint: Syncope Patient is a 43-year-old male with known history of [place], coronary artery disease status post stent placement on June 26, 2023, history of back surgery, hypertension, hyperlipidemia and currently everyday smoker. Patient presents to ER due to syncopal episode. 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 Patient went into gross and passed out for about a minute. She did feel dizzy and lightheaded prior to the episode. Otherwise denies any chest pain. No palpitations. No shortness of breath. Was able to back to normal after the episode. Patient states that it happened about a month ago while at home and was walking to the kitchen. He felt dizzy but did not pass out. He has been sweaty most of the times recently. Denies any fever or chills. No cough or sputum production. Denies any recent illnesses. Currently symptoms resolved. EKG showed sinus tachycardia with a left anterior block with heart rate 112 Chest x-ray showed no acute cardiopulmonary process Blood pressure 156/108 and heart rate 112 on admission. On room air. Laboratory data showed WBC 7.0 hemoglobin 13.9 and platelets 174. D-dimer not elevated at 0.39 sodium 138 potassium 3.7 chloride 106 bicarb is 18 BUN 14 and creatinine 1.17 and blood sugar 165 and calcium 10.3. Liver enzymes are not elevated. Review of Systems Constitutional: Patient denies any fever or chills . No generalized weakness or weight loss. Abdomen: Patient denied nausea vomiting and diarrhea and abdominal pain. Cardiovascular: Patient denies any chest pain or short of breath no palpitations . Respiratory: patient denied any cough or sputum production. No shortness of breath Neurologic: Patient denied any numbness or tingling. no headache. Musculoskeletal: Patient denies any complaints of joint swelling or deformity. Skin: Negative Psychiatric: Negative Endocrine: No heat or cold intolerance. No recent weight gain. Genitourinary: No dysuria or hematuria. All other 14 point ROS negative except the above Past Medical History Past Medical History: No Reported History, Hyperlipidemia, Hypertension, Myocardial Infarction ([place]) Additional Past Medical History / Comment(s): 65% heart valve blockage. [place] June 2023 History of Any Multi-Drug Resistant Organisms: None Reported Past Surgical History: Back Surgery, Heart Catheterization With Stent Past Anesthesia/Blood Transfusion Reactions: No Reported Reaction Past Psychological History: No Psychological Hx Reported Smoking Status: Current every day smoker Past Alcohol Use History: None Reported Past Drug Use History: Marijuana Medications and Allergies Home Medications Medication Instructions Recorded Confirmed Type Aspirin 81 mg PO DAILY 30 Days #30 tab 06/28/23 01/24/24 Rx Atorvastatin Calcium [Lipitor] 80 mg PO DAILY #30 tab 06/28/23 01/24/24 Rx Losartan [Cozaar] 25 mg PO DAILY 30 Days #30 tab 06/28/23 01/24/24 Rx Ticagrelor [Brilinta] 90 mg PO BID 30 Days #60 tab 06/28/23 01/24/24 Rx Ezetimibe [Zetia] 10 mg PO DAILY 01/24/24 01/24/24 History Metoprolol Succinate (ER) [Toprol 25 mg PO DAILY 01/24/24 01/24/24 History XL] Allergies Allergy/AdvReac Type Severity Reaction Status Date / Time No Known Allergies Allergy Verified 01/24/24 15:35 Physical Exam Vitals: Vital Signs Temp Pulse Pulse Pulse Pulse Resp BP 01/24/24 18:03 98.2 F 96 20 165/108 01/24/24 16:59 98 18 155/117 01/24/24 16:40 104 H 108 H 87 01/24/24 15:18 101 H 17 140/98 01/24/24 14:01 98.0 F 112 H 18 156/108 BP BP BP Pulse Ox 01/24/24 18:03 98 01/24/24 16:59 99 01/24/24 16:40 155/117 160/103 161/110 01/24/24 15:18 97 01/24/24 14:01 97 Intake and Output 01/24/24 01/24/24 01/24/24 06:59 14:59 22:59 Other: Weight 81.647 kg PHYSICAL EXAMINATION: Patient is lying in the bed comfortably, no acute distress, awake alert and oriented.. HEENT: Normocephalic. Neck is supple. Pupils reactive. Nostrils clear. Oral cavity is moist. Neck reveals no JVD, carotid bruits, or thyromegaly. CHEST EXAMINATION: Trachea is central. Symmetrical expansion. Lung thompson clear to auscultation and percussion. CARDIAC: Normal S1, S2 with no gallops. No murmurs ABDOMEN: Soft. Bowel sounds normal. No organomegaly. No abdominal bruits. Extremities: reveal no edema. No clubbing or cyanosis Neurologically awake, alert, oriented x3 with well-coordinated movements. No focal deficits noted Skin: No rash or skin lesions. Psychiatric: Coperative. Nonsuicidal Musculoskeletal: No joint swelling or deformity. Normal range of motion. Results CBC & Chem 7: 01/24/24 14:22 01/24/24 14:22 Labs: Abnormal Lab Results - Last 24 Hours (Table) 01/24/24 01/24/24 Range/Units 14:22 14:22 APTT 17.6 L (22.0-30.0) sec Carbon Dioxide 18 L (22-30) mmol/L Glucose 165 H (74-99) mg/dL Calcium 10.3 H (8.4-10.2) mg/dL Thrombosis Risk Factor Assmnt - DVT/VTE Prophylaxis DVT/VTE Prophylaxis: Pharmacologic Prophylaxis ordered Assessment and Plan Assessment: Acute syncopal episode. Patient passed about 1 minute after using marijuana joint. He was also working outside. Rule out arrhythmia. Coronary artery disease history of stent placement on June 26, 2023 Currently everyday smoking Hyperglycemia with no prior history of diabetes Hypercalcemia likely secondary to dehydration DVT prophylaxis with heparin subcu Plan: Patient will be continued on IV hydration with normal saline. Continue with daily monitoring. Start back on aspirin, statin, Cozaar and metoprolol. TSH and A1c levels ordered. Cardiology was consulted for evaluation. Follow-up closely. Time with Patient: Greater than 30
[2024-01-24] MEDS: TICAGRELOR 90 MG TAB PO SCH (20:21)
[2024-01-24] MEDS: LOSARTAN 25 MG TAB PO SCH (20:21)
[2024-01-25 03:25] LABS: Amphetamine Screen,Urine Detected (NotDetected); Barbiturate Screen,Urine Not Detected (NotDetected); Benzodiazepines Screen,Urine Not Detected (NotDetected); Cocaine Screen,Urine Not Detected (NotDetected); Methadone Screen, Urine Not Detected (NotDetected); Opiate Screen,Urine Not Detected (NotDetected); Oxycodone Screen, Urine Not Detected (NotDetected); Phencyclidine Screen,Urine Not Detected (NotDetected); Tricyclic Antidepressant,Urine Not Detected (NotDetected); Urn Cannabinoid Scrn Detected (NotDetected)
[2024-01-25 07:39] VITALS: RESP 18
[2024-01-25] MEDS ORDERED: LOSARTAN 25 MG TAB PO SCH (09:00)
[2024-01-25] MEDS: EZETIMIBE 10 MG TAB PO SCH (09:04)
[2024-01-25] MEDS: ATORVASTATIN 80 MG TAB PO SCH (09:04)
[2024-01-25] MEDS: METOPROLOL SUCCINATE (ER) 25 MG TAB.ER.24H PO SCH (09:04)
[2024-01-25] MEDS: ASPIRIN 81 MG PO SCH (09:04)
[2024-01-25 11:08] LABS: Blood Urea Nitrogen 14.7 mg/dL (9.0-27.0); Calcium 9.2 mg/dL (8.7-10.3); Carbon Dioxide 20.6 mmol/L (21.6-31.8); Chloride 104 mmol/L (96-109); Glucose 92 mg/dL (70-110); Potassium 4.5 mmol/L (3.5-5.5); Sodium 138 mmol/L (135-145)
--- NOTE | 2024-01-25 12:16 | P.CRDCN ---
History of Present Illness History of present illness: This is Dr. Fisher dictating a consult on this patient The patient was interviewed and examined IMPRESSION / ASSESSMENT: 1 episode of loss of consciousness after using marijuana Daily nicotine use Hyperglycemia Coronary disease status post coronary stenting in June Normal cardiac enzymes Q waves noted on twelve-lead EKG PLAN: Continue cardiac medications unchanged Follow-up with physiognomist Avoid drug use as detected on tox screen especially since he has a history of coronary artery disease and stenting 8 months back Patient will go home from a cardiac standpoint. Importance of lifestyle modification emphasized. Hopefully he is compliant HPI Patient presented to the ER with an episode of syncope. 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 He smoked marijuana prior to this. He felt lightheaded prior to the episode Unresponsive for about a minute This morning he looks asymptomatic. He feels fine no chest discomfort he had no preceding chest discomfort either before he passed out the episode was brief Twelve-lead EKG is normal cardiac enzymes are normal urine tox screen is abnormal and positive for amphetamine, methamphetamine and marijuana ROS: No fever chills or rigors, no cough, phlegm or expectoration, no nausea, vomiting or diarrhea, no hematuria, dysuria, no musculoskeletal complaints, no strokes or seizures, no skin lesions. EXAMINATION: Afebrile sinus tachycardia blood pressure 156/108 mmHg respirations normal REVIEW OF LABS, ECG & MEDICAL DATA Home medications include Brilinta metoprolol losartan Zetia atorvastatin aspirin In June underwent coronary stenting with a drug-eluting stent No known drug allergies Normal CBC with normal hemoglobin and white count Normal D-dimer Normal electrolytes 2 normal troponins Twelve-lead EKG shows sinus tachycardia normal MT Q waves in the inferior leads Chest x-ray normal Past Medical History Past Medical History: No Reported History, Hyperlipidemia, Hypertension, Myocardial Infarction ([place]) Additional Past Medical History / Comment(s): 65% heart valve blockage. [place] June 2023 History of Any Multi-Drug Resistant Organisms: None Reported Past Surgical History: Back Surgery, Heart Catheterization With Stent Past Anesthesia/Blood Transfusion Reactions: No Reported Reaction Past Psychological History: No Psychological Hx Reported Smoking Status: Current every day smoker Past Alcohol Use History: None Reported Past Drug Use History: Marijuana Medications and Allergies Home Medications Medication Instructions Recorded Confirmed Type Aspirin 81 mg PO DAILY 30 Days #30 tab 06/28/23 01/24/24 Rx Atorvastatin Calcium [Lipitor] 80 mg PO DAILY #30 tab 06/28/23 01/24/24 Rx Losartan [Cozaar] 25 mg PO DAILY 30 Days #30 tab 06/28/23 01/24/24 Rx Ticagrelor [Brilinta] 90 mg PO BID 30 Days #60 tab 06/28/23 01/24/24 Rx Ezetimibe [Zetia] 10 mg PO DAILY 01/24/24 01/24/24 History Metoprolol Succinate (ER) [Toprol 25 mg PO DAILY 01/24/24 01/24/24 History XL] Allergies Allergy/AdvReac Type Severity Reaction Status Date / Time No Known Allergies Allergy Verified 01/24/24 15:35 Physical Exam Vitals: Vital Signs Temp Pulse Pulse Pulse Pulse Resp BP 01/24/24 18:03 98.2 F 96 20 165/108 01/24/24 16:59 98 18 155/117 01/24/24 16:40 104 H 108 H 87 01/24/24 15:18 101 H 17 140/98 01/24/24 14:01 98.0 F 112 H 18 156/108 BP BP BP Pulse Ox 01/24/24 18:03 98 01/24/24 16:59 99 01/24/24 16:40 155/117 160/103 161/110 01/24/24 15:18 97 01/24/24 14:01 97 Intake and Output 01/24/24 01/24/24 01/24/24 06:59 14:59 22:59 Other: Weight 81.647 kg Results 01/24/24 14:22 01/25/24 06:45 Cardiac Enzymes 01/24/24 01/24/24 01/24/24 Range/Units 14:22 14:22 18:02 AST 37 (17-59) U/L Troponin I 0.019 0.016 (0.000-0.034) ng/mL Coagulation 01/24/24 Range/Units 14:22 PT 10.9 (10.0-12.5) sec APTT 17.6 L (22.0-30.0) sec CBC 01/24/24 Range/Units 14: WBC 7.0 (3.8-10.6) k/uL RBC 4.90 (4.30-5.90) m/uL Hgb 13.9 (13.0-17.5) gm/dL Hct 42.1 (39.0-53.0) % Plt Count 174 (150-450) k/uL Comprehensive Metabolic Panel 01/24/24 Range/Units 14:22 Sodium 138 (137-145) mmol/L Potassium 3.7 (3.5-5.1) mmol/L Chloride 106 (98-107) mmol/L Carbon Dioxide 18 L (22-30) mmol/L BUN 14 (9-20) mg/dL Creatinine 1.17 (0.66-1.25) mg/dL Glucose 165 H (74-99) mg/dL Calcium 10.3 H (8.4-10.2) mg/dL AST 37 (17-59) U/L ALT 38 (4-49) U/L Alkaline Phosphatase 112 (38-126) U/L Total Protein 8.0 (6.3-8.2) g/dL Albumin 5.0 (3.5-5.0) g/dL Current Medications Generic Name Dose Route Start Last Admin Trade Name Freq PRN Reason Stop Dose Admin Acetaminophen 650 mg 01/24/24 16:28 Acetaminophen Tab 325 Mg Tab PO Q6HR PRN Mild Pain or Fever > 100.5 Aspirin 81 mg 01/25/24 09:00 Aspirin 81 Mg PO DAILY [facility] Atorvastatin Calcium 80 mg 01/25/24 09:00 Atorvastatin 80 Mg Tab PO DAILY [facility] Ezetimibe 10 mg 01/25/24 09:00 Ezetimibe 10 Mg Tab PO DAILY [facility] Sodium Chloride 1,000 mls @ 75 mls/hr 01/24/24 14:16 01/24/24 14:36 Saline 0.9% IV 01/25/24 03:35 75 mls/hr .[id number] STA Administration Losartan Potassium 25 mg 01/24/24 18:30 Losartan 25 Mg Tab PO DAILY [facility] Metoprolol Succinate 25 mg 01/25/24 09:00 Metoprolol Succinate (Er) 25 Mg Tab.Er.24h PO DAILY [facility] Naloxone HCl 0.2 mg 01/24/24 16:28 Naloxone 0.4 Mg/Ml 1 Ml Vial IV Q2M PRN Opioid Reversal Ticagrelor 90 mg 01/24/24 21:00 Ticagrelor 90 Mg Tab PO BID [facility] Intake and Output 08/01/24 08/01/24 08/01/24 06:59 14:59 22:59 Other: Weight 81.647 kg Patient Weight 01/25/24 06:59 Weight 81.647 kg 01/24/24 14:22 01/24/24 14:22
[2024-01-25 12:52] VITALS: BP 132/79; PULSE 67; TEMP 97.8
== END 2024-01-25 12:52 | disposition home or self-care (01) ==
LOC: EC 13:57 → 6NMEDSUR 16:29
PROVIDERS: ADMIT Internal Medicine; ATTEND Internal Medicine
DX: R55 Syncope and collapse (principal); I25.10 Atherosclerotic heart disease of native coronary artery without angina pectoris; I44.4 Left anterior fascicular block; E83.52 Hypercalcemia; I10 Essential (primary) hypertension; E78.5 Hyperlipidemia, unspecified; R00.0 Tachycardia, unspecified; R73.9 Hyperglycemia, unspecified; I25.2 Old myocardial infarction; F17.200 Nicotine dependence, unspecified, uncomplicated; F12.90 Cannabis use, unspecified, uncomplicated; Z79.02 Long term (current) use of antithrombotics/antiplatelets; Z79.82 Long term (current) use of aspirin; Z79.899 Other long term (current) drug therapy; Z95.5 Presence of coronary angioplasty implant and graft
CPT/HCPCS: 36415; 93005; 85379; 80053; 80048; 84443; 83735; 84484; 85025; 85610; 85730; 80306; 83036; 71046; G0378 ×2; 96360; 96361; 99285

== ENCOUNTER 2024-01-28 19:38 | Emergency (ER) | payer OTHER | END 2024-01-28 21:47 | disposition left against medical advice (07) | LOC: EC 19:38 | DX: Z53.21 Procedure and treatment not carried out due to patient leaving prior to being seen by health care provider (principal) | CPT/HCPCS: 99499 ==

== ENCOUNTER 2024-01-29 12:23 | Emergency (ER) | payer OTHER ==
[2024-01-29] MEDS ORDERED: KETOROLAC 15 MG/ML 1 ML VIAL ONE (13:56)
[2024-01-29] MEDS ORDERED: MORPHINE SULFATE 4 MG/ML SYRINGE ONE (13:56)
[2024-01-29] MEDS ORDERED: ACET/COD 300 MG/30 MG STARTER PACK 6 TAB BTL PO ONE (16:29)
[2024-01-29] MEDS ORDERED: SODIUM CHLORIDE 0.9% 1,000 ML BAG ONE (23:59)
--- NOTE | 2024-02-26 11:49 | CT ---
"CHENG HAWK : 1980 EXAMINATION: CT Abd/Pelvis w/ Contrast TECHNIQUE: Contiguous axial scanning of the abdomen and pelvis following administration of 100 mL Iso deshaun-300 IV contrast. Delayed images through the kidneys and coronal/sagittal reconstructions were per formed. Automated exposure control for dose reduction was used. DATE: 01/29/2024 3:52 PM COMPARISON: No priors available during downtime HISTORY: 44-year-old male with left lower quadrant pain FINDINGS: Heart is normal size without pericardial effusion. Lung bases clear without pleural effusion. No focal liver lesion or biliary ductal dilatation. Portal venous system is patent. Gallbladder, adrenal glands, kidneys, spleen, and pancreas within normal limits. No dilated small bowel or free air. Mildly enlarged 1.3 cm lower left periaortic lymph node probably reactive/post inflammatory. Otherwis e, no mesenteric or retroperitoneal adenopathy. There is mild interval ascites and more moderate pelvic ascites free fluid. Prominent fluid-filled sm all bowel loops lower abdomen measure up to 1.9 cm. Localized ileus is suggested. Normal appendix. Scattered mild stool. There is sigmoid diverticulosis with moderate circumferential wall thickening and moderate surrounding inflammatory fat stranding about the mid sigmoid colon. Bladder partially distended. Prostate gland enlarged at 5.5 cm wide. No pelvic lymphadenopathy. Bones: Advanced hypertrophic facet arthropathy mid to lower lumbar spine. Moderate degenerative disc disease L4/L5 and L5-S1. IMPRESSION: 1. Mid sigmoid acute diverticulitis with moderate surrounding inflammation. Mild to moderate free flu id in the pelvis likely reactive to the inflammation. No free air or abscess. 2. Some prominent fluid-filled small bowel loops in the lower abdomen adjacent to inflammation likely reactive ileus. 3. Mildly enlarged lower left periaortic lymph node at 1.3 cm is probably reactive. Recommend 3 month follow-up CT to ensure stability/resolution. 4. Prostatomegaly at 5.5 cm wide. "
== END 2024-01-29 16:38 | disposition home or self-care (01) ==
LOC: EC 12:23
CPT/HCPCS: 74177; 80053; 81003; 82150; 83605; 85025; 96374; 96375; 99284

== ENCOUNTER 2024-02-09 08:03 | Emergency (ER) | payer OTHER ==
[2024-02-09] MEDS ORDERED: diphenhydrAMINE 50 MG CAP ONE (08:24)
[2024-02-09] MEDS ORDERED: FAMOTIDINE 20 MG TAB ONE (08:24)
[2024-02-09] MEDS ORDERED: methylPREDNISolone SOD SUCCI 125 MG/2 ML VIAL ONE (08:24)
[2024-02-09] MEDS ORDERED: HYDROcodone/APAP 7.5-325MG 1 EACH TAB ONE (08:24)
[2024-02-09] MEDS ORDERED: TRIAMCINOLONE 0.1% CREAM 80 GM TUBE TOPICAL ONE (08:59)
== END 2024-02-09 10:02 | disposition home or self-care (01) ==
LOC: EC 08:03
CPT/HCPCS: 96372; 99283

== ENCOUNTER 2024-02-17 09:52 | Emergency (ER) | payer OTHER ==
--- NOTE | 2024-02-17 10:25 | ED ---
Skin/Abscess/FB HPI - General Chief complaint: Skin/Abscess/Foreign Body Stated complaint: Rash Time Seen by Provider: 02/17/24 10:22 Source: patient, RN notes reviewed Mode of arrival: ambulatory Limitations: no limitations - History of Present Illness Initial comments: 43-year-old male presented to the ER with a chief complaint of an erythematous pruritic rash. Patient states he was working in his yard a couple of days ago and believes he was encountered by poison patsy. He has tried [id number]-[id number] bleach water and Benadryl without relief. Patient reports rash on bilateral upper extremities and stomach. Denies any fevers, chills, night sweats. No other acute complaints. - Related Data Home Medications Medication Instructions Recorded Confirmed Ezetimibe [Zetia] 10 mg PO DAILY 01/24/24 01/24/24 Metoprolol Succinate (ER) [Toprol 25 mg PO DAILY 01/24/24 01/24/24 XL] Previous Rx's Medication Instructions Recorded Aspirin 81 mg PO DAILY 30 Days #30 tab 06/28/23 Atorvastatin Calcium [Lipitor] 80 mg PO DAILY #30 tab 06/28/23 Losartan [Cozaar] 25 mg PO DAILY 30 Days #30 tab 06/28/23 Ticagrelor [Brilinta] 90 mg PO BID 30 Days #60 tab 06/28/23 Hydrocortisone Cream 1 applic TOPICAL TID #28 gm 02/17/24 [Hydrocortisone 1% Cream] Allergies Allergy/AdvReac Type Severity Reaction Status Date / Time No Known Allergies Allergy Verified 02/17/24 10:02 Review of Systems ROS Statement: Those systems with pertinent positive or pertinent negative responses have been documented in the HPI. ROS Other: All systems not noted in ROS Statement are negative. 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 [place] June 2023 History of Any Multi-Drug Resistant Organisms: None Reported Past Surgical History: Back Surgery, Heart Catheterization With Stent Past Anesthesia/Blood Transfusion Reactions: No Reported Reaction Past Psychological History: No Psychological Hx Reported Smoking Status: Current every day smoker Past Alcohol Use History: None Reported Past Drug Use History: Marijuana General Exam Limitations: no limitations General appearance: alert, in no apparent distress Respiratory exam: Present: normal lung sounds bilaterally. Absent: respiratory distress, wheezes, rales, rhonchi, stridor Cardiovascular Exam: Present: regular rate, normal rhythm, normal heart sounds. Absent: systolic murmur, diastolic murmur, rubs, gallop, clicks Extremities exam: Present: normal inspection, full ROM, normal capillary refill. Absent: tenderness, pedal edema, joint swelling, calf tenderness Skin exam: Present: warm, dry, intact, normal color, rash (Erythematous macular with few scattered vesicles on bilateral volar forearms and stomach.) Course Vital Signs 02/17/24 02/17/24 09:59 11:14 Temperature 97.7 F 98.6 F Pulse Rate 85 79 Respiratory 16 17 Rate Blood Pressure 174/108 166/110 O2 Sat by Pulse 100 97 Oximetry Medical Decision Making - Medical Decision Making Was pt. sent in by a medical professional or institution (, [facility], ENGINEERING SUPERVISOR, urgent care, hospital, or half-way...) When possible be specific @ -No Did you speak to anyone other than the patient for history (EMS, parent, family, police, friend...)? What history was obtained from this source @ -No Did you review nursing and triage notes (agree or disagree)? Why? @ -I reviewed and agree with nursing and triage notes Were old charts reviewed (outside hosp., previous admission, EMS record, old EKG, old radiological studies, urgent care reports/EKG's, half-way records)? Report findings @ -No old charts were reviewed Differential Diagnosis (chest pain, altered mental status, abdominal pain women, abdominal pain men, vaginal bleeding, weakness, fever, dyspnea, syncope, headache, dizziness, GI bleed, back pain, seizure, CVA, palpatations, mental health, musculoskeletal)? @ -Viral exanthem, scabies, psoriasis, contact dermatitis,... This list is not meant to be all-inclusive EKG interpreted by me (3pts min.). @ -None X-rays interpreted by me (1pt min.). @ -None done CT interpreted by me (1pt min.). @ -None done U/S interpreted by me (1pt. min.). @ -None done What testing was considered but not performed or refused? (CT, X-rays, U/S, labs)? Why? @ -None What meds were considered but not given or refused? Why? @ -None Did you discuss the management of the patient with other professionals (professionals i.e. , PA, ENGINEERING SUPERVISOR, lab, RT, psych nurse, social work manager, machine lead burner, teacher, airplane first officer, rn case manager)? Give summary @ -No Was smoking cessation discussed for >3mins.? @ -No Was critical care preformed (if so, how long)? @ -No Were there social determinants of health that impacted care today? How? (Homelessness, low income, unemployed, alcoholism, drug addiction, transpor tation, low edu. Level, literacy, decrease access to med. care, fdc, rehab)? @ -No Was there de-escalation of care discussed even if they declined (Discuss DNR or withdrawal of care, Hospice)? DNR status @ -No What co-morbidities impacted this encounter? (DM, HTN, Smoking, COPD, CAD, Cancer, CVA, ARF, Chemo, Hep., AIDS, mental health diagnosis, sleep apnea, morbid obesity)? @ -None Was patient admitted / discharged? Hospital course, mention meds given and route, prescriptions, significant lab abnormalities, going to OR and other pertinent info. @ -43-year-old presented to ER with complaint of rash. History physical exam completed. Vitals stable. Patient no signs of acute distress and nontoxic- appearing. Rash consistent with contact dermatitis present on bilateral upper extremities and trunk. IM Decadron given. Hydrocortisone prescribed. Advise close follow-up with PCP. Strict return parameters discussed. Patient discharged stable condition. Patient expressed understanding and agreement with care plan. Case discussed with ED attending, Dr. Toro. Undiagnosed new problem with uncertain prognosis? @ -No Drug Therapy requiring intensive monitoring for toxicity (Heparin, Nitro, Insulin, Cardizem)? @ -No Were any procedures done? @ -No Diagnosis/symptom? @ -Contact dermatitis Acute, or Chronic, or Acute on Chronic? @ -Acute Uncomplicated (without systemic symptoms) or Complicated (systemic symptoms)? @ -Uncomplicated Side effects of treatment? @ -No Exacerbation, Progression, or Severe Exacerbation? @ -No Poses a threat to life or bodily function? How? (Chest pain, USA, DC, pneumonia, PE, COPD, DKA, ARF, appy, cholecystitis, CVA, Diverticulitis, Homicidal, Suicidal, threat to staff... and all critical care pts) @ -No Disposition Clinical Impression: Contact dermatitis Disposition: HOME SELF-CARE Condition: Stable Instructions (If sedation given, give patient instructions): Contact Dermatitis (DC) Additional Instructions: Apply hydrocortisone cream 3 times daily. I recommend OTC calamine lotion and Be nadryl for his itching control. Follow-up with PCP. Prescriptions: Hydrocortisone Cream [Hydrocortisone 1% Cream] 1 applic TOPICAL TID #28 gm Is patient prescribed a controlled substance at d/c from ED?: No Referrals: None,Stated [Primary Care Provider] - 1-2 days Time of Disposition: 10:59
[2024-02-17] MEDS: DEXAMETHASONE SOD PHOSPHATE 4 MG/ML 1 ML VIAL IM STA (11:10)
[2024-02-17 11:18] VITALS: BP 166/110; PULSE 79; RESP 17; TEMP 98.6
== END 2024-02-17 11:20 | disposition home or self-care (01) ==
LOC: EC 09:52
DX: L25.9 Unspecified contact dermatitis, unspecified cause (principal); F17.200 Nicotine dependence, unspecified, uncomplicated
CPT/HCPCS: 96372; 99282

== ENCOUNTER 2024-07-15 18:00 | Emergency (ER) | payer OTHER ==
--- NOTE | 2024-07-15 18:23 | ED ---
Lower Extremity Injury HPI - General Source: patient, RN notes reviewed Mode of arrival: wheelchair Limitations: no limitations - History of Present Illness MD Complaint: knee injury Time: 10:00 <Raul Muniz - Last Filed: 07/15/24 18:21> <Corina Aguilar - Last Filed: 07/15/24 23:05> - General Stated Complaint: pain in kneecap Time Seen by Provider: 07/15/24 18:17 - History of Present Illness Initial Comments: Quick note: This is a 44-year-old male with history of AMI/stents x 2 presenting with right knee injury since 1000 this morning. 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 Patient also endorses dizziness/lightheadedness and feeling pale the past 30 minutes. Denies chest pain, dyspnea/SOB, nausea/vomiting. (Raul Muniz) 44-year-old male presenting with chief complaint of right knee injury. Patient states that around 10:00 this morning he was splitting wood when a piece hit his right knee. He has pain and swelling over the medial aspect of the knee. He states that he tried to tough it out throughout the day but pain got worse throughout the day so he decided to come to the ER. Mild pins and needle sensation. States that he did have a moment of dizziness earlier today, however he thinks it was attributed to the pain. No chest pain, shortness of breath, nausea, vomiting. (Corina Aguilar) - Related Data Home Medications Medication Instructions Recorded Confirmed Ezetimibe [Zetia] 10 mg PO DAILY 01/24/24 01/24/24 Metoprolol Succinate (ER) [Toprol 25 mg PO DAILY 01/24/24 01/24/24 XL] Previous Rx's Medication Instructions Recorded Aspirin 81 mg PO DAILY 30 Days #30 tab 06/28/23 Atorvastatin Calcium [Lipitor] 80 mg PO DAILY #30 tab 06/28/23 Losartan [Cozaar] 25 mg PO DAILY 30 Days #30 tab 06/28/23 Ticagrelor [Brilinta] 90 mg PO BID 30 Days #60 tab 06/28/23 Hydrocortisone Cream 1 applic TOPICAL TID #28 gm 02/17/24 [Hydrocortisone 1% Cream] HYDROcodone/APAP 7.5-325MG [[place] 1 tab PO Q6HR PRN 3 Days #12 tab 07/15/24 7.5-325] Allergies Allergy/AdvReac Type Severity Reaction Status Date / Time No Known Allergies Allergy Verified 07/15/24 19:11 Review of Systems ROS Other: All systems not noted in ROS Statement are negative. <FlavioRaul marcos - Last Filed: 07/15/24 18:21> ROS Other: All systems not noted in ROS Statement are negative. <JeffAmandeephumberto - Last Filed: 07/15/24 23:05> ROS Statement: Those systems with pertinent positive or pertinent negative responses have been documented in the HPI. Past Medical History Past Medical History: No Reported History, Hyperlipidemia, Hypertension, Myocardial Infarction (NV) Additional Past Medical History / Comment(s): 65% heart valve blockage. NV June 2023 History of Any Multi-Drug Resistant Organisms: None Reported Past Surgical History: Back Surgery, Heart Catheterization With Stent Past Anesthesia/Blood Transfusion Reactions: No Reported Reaction Past Psychological History: No Psychological Hx Reported Smoking Status: Current every day smoker Past Alcohol Use History: None Reported Past Drug Use History: Marijuana <Raul Muniz - Last Filed: 07/15/24 18:21> General Exam <Raul Muniz - Filed: 07/15/24 18:21> Limitations: no limitations General appearance: alert, in no apparent distress Head exam: Present: atraumatic, normocephalic, normal inspection Eye exam: Present: normal appearance, EOMI Neck exam: Present: normal inspection. Absent: meningismus Respiratory exam: Absent: respiratory distress Cardiovascular Exam: Present: regular rate Right Knee exam: Present: tenderness, swelling, ecchymosis. Absent: full ROM Neurovascular tendon exam: Present: no vascular compromise Neurological exam: Present: alert, oriented X3 Psychiatric exam: Present: normal affect, normal mood Skin exam: Present: warm, dry <Corina Aguilar - Last Filed: 07/15/24 23:05> - General Exam Comments Initial Comments: Visual Physical Exam Vital signs reviewed General: Well-appearing, nontoxic, no acute distress. Patient seated in wheelchair Head: Normocephalic, atraumatic Eyes: PERRLA, EOMI ENT: Airway patent Chest: Nonlabored breathing Skin: No visual rash, normal skin tone Neuro: Alert and oriented 3 Musculoskeletal: No gross abnormalities (Raul Muniz) Course Vital Signs 07/15/24 07/15/24 19:07 20:45 Temperature 97.5 F L Pulse Rate 73 94 Respiratory 18 18 Rate Blood Pressure 107/68 120/64 O2 Sat by Pulse 100 99 Oximetry Medical Decision Making <Raul Muniz - Last Filed: 07/15/24 18:21> <Corina Aguilar - Last Filed: 07/15/24 23:05> - Medical Decision Making I completed the quick note portion of this chart signed MARC Bueno (Raul Muniz) Was pt. sent in by a medical professional or institution ([facility], SLOT OPERATIONS MANAGER, urgent care, hospital, or halfway...) When possible be specific @ -No Did you speak to anyone other than the patient for history (EMS, parent, family, police, friend...)? What history was obtained from this source @ -No Did you review nursing and triage notes (agree or disagree)? Why? @ -I reviewed and agree with nursing and triage notes Were old charts reviewed (outside hosp., previous admission, EMS record, old EKG, old radiological studies, urgent care reports/EKG's, halfway records)? Report findings @ -No old charts were reviewed Differential Diagnosis (chest pain, altered mental status, abdominal pain women, abdominal pain men, vaginal bleeding, weakness, fever, dyspnea, syncope, headache, dizziness, GI bleed, back pain, seizure, CVA, palpatations, mental health, musculoskeletal)? @ -Differential Musculoskeletal Muscular strain, contusion, ligament sprain, fracture, arthritis, septic arthrit is, bursitis, cellulitis, muscle spasm, nerve compression, DVT, arterial occlusion, herpes zoster, electrolyte abnormality, tumor.... This is not meant to be in all inclusive list EKG interpreted by me (3pts min.). @ -As above X-rays interpreted by me (1pt min.). @ -No fracture or dislocation seen on the x-ray. Mild tricompartmental osteoarthritic changes. Chest x-ray shows no acute process. CT interpreted by me (1pt min.). @ -None done U/S interpreted by me (1pt. min.). @ -None done What testing was considered but not performed or refused? (CT, X-rays, U/S, labs)? Why? @ -None What meds were considered but not given or refused? Why? @ -None Did you discuss the management of the patient with other professionals (professionals i.e. , PA, SLOT OPERATIONS MANAGER, lab, RT, psych nurse, social work instructor, legal support specialist, teacher, consumer safety officer, sample case porter)? Give summary @ -No Was smoking cessation discussed for >3mins.? @ -No Was critical care preformed (if so, how long)? @ -No Were there social determinants of health that impacted care today? How? (Homelessness, low income, unemployed, alcoholism, drug addiction, transportation, low edu. Level, literacy, decrease access to med. care, prison, rehab)? @ -No Was there de-escalation of care discussed even if they declined (Discuss DNR or withdrawal of care, Hospice)? DNR status @ -No What co-morbidities impacted this encounter? (DM, HTN, Smoking, COPD, CAD, Cancer, CVA, ARF, Chemo, Hep., AIDS, mental health diagnosis, sleep apnea, morbid obesity)? @ -None Was patient admitted / discharged? Hospital course, mention meds given and route, prescriptions, significant lab abnormalities, going to OR and other pertinent info. @ -44-year-old male presenting with chief complaint of right knee injury. At 10 AM today he was cutting wood when a piece of the wood hit his knee. No break in the skin or laceration. He is having increased pain with weightbearing and is unable to ambulate normally. Does have significant swelling over the medial aspect of the knee. He is neurovascularly intact. X-ray negative for fracture or dislocation. Patient is educated on today's findings. He is placed in a knee immobilizer, provided with crutches, and instructed to follow-up with orthopedics. Follow-up with PCP. Report back to ER with any new or worsening symptoms. Discussed return parameters and answered all questions. Patient conveyed verbal understanding and agreed to the plan. I discussed this case in detail with my attending Dr. Cardenas Undiagnosed new problem with uncertain prognosis? @ -No Drug Therapy requiring intensive monitoring for toxicity (Heparin, Nitro, Insulin, Cardizem)? @ -No Were any procedures done? @ -No Diagnosis/symptom? @ -Knee sprain Acute, or Chronic, or Acute on Chronic? @ -Acute Uncomplicated (without systemic symptoms) or Complicated (systemic symptoms)? @ -Uncomplicated Side effects of treatment? @ -No Exacerbation, Progression, or Severe Exacerbation? @ -No Poses a threat to life or bodily function? How? (Chest pain, USA, NV, pneumonia, PE, COPD, DKA, ARF, appy, cholecystitis, CVA, Diverticulitis, Homicidal, Suicidal, threat to staff... and all critical care pts) @ -Low likelihood (Corina Aguilar) Disposition <Raul Muniz - Last Filed: 07/15/24 18:21> Is patient prescribed a controlled substance at d/c from ED?: Yes When asked, does pt state using other controlled substances?: No If prescribed controlled substance>3 days was MAPS reviewed?: Prescribed <3 Days If opioid is for acute pain is fill amount 7 days or less?: Yes Time of Disposition: 20:17 <Corina Aguilar - Last Filed: 07/15/24 23:05> Clinical Impression: Knee injury Disposition: HOME SELF-CARE Condition: Good Instructions (If sedation given, give patient instructions): Knee Sprain (ED) Additional Instructions: Follow-up with orthopedics. Report back to ER with any new or worsening symp toms. Take Motrin Tylenol as needed for pain control. Take [place] for breakthrough pain, do not combine [place] with [id number] Tylenol. Rest ice and elevate the knee. Keep the knee immobilizer on and do not bear weight on the knee until cleared by orthopedics. Prescriptions: HYDROcodone/APAP 7.5-325MG [[place] 7.5-325] 1 tab PO Q6HR PRN 3 Days #12 tab PRN Reason: Pain Referrals: None,Stated [Primary Care Provider] - 1-2 days Dru Ruvalcaba DO [Doctor of Osteopathic Medicine] - 1-2 days
[2024-07-15 19:12] VITALS: RESP 18; TEMP 97.5
--- NOTE | 2024-07-15 19:42 | XR ---
EXAMINATION TYPE: XR chest 2V DATE OF EXAM: 07/15/2024 7:22 PM COMPARISON: Chest radiographs from 01/24/2024 CLINICAL INDICATION: Male, 44 years old with history of Chest Pain; TECHNIQUE: XR chest 2V Frontal and lateral views of the chest. FINDINGS: Lungs/Pleura: There is no evidence of pleural effusion, focal consolidation, or pneumothorax. Pulmonary vascularity: Unremarkable. Heart/mediastinum: Cardiomediastinal silhouette is unremarkable. Musculoskeletal: No acute osseous pathology. IMPRESSION: No acute cardiopulmonary disease/process. [facility], , 07/15/2024 7:40 PM
--- NOTE | 2024-07-15 19:50 | XR ---
EXAMINATION TYPE: XR knee complete RT DATE OF EXAM: 07/15/2024 7:24 PM COMPARISON: None CLINICAL INDICATION: Male, 44 years old with history of Medial knee contusion; PHH, pain TECHNIQUE: XR knee complete RT 3 views submitted. FINDINGS: No evidence of any acute osseous pathology, soft tissue swelling, or joint effusion is no falko. Tricompartmental osteophyte formation involving the femoral condyles, tibial plateau and patella . Mild joint space narrowing. A fabella is present. IMPRESSION: 1. No acute osseous pathology. 2. Mild tricompartmental osteoarthritic changes. [facility], , 07/15/2024 7:48 PM
[2024-07-15 20:46] VITALS: BP 120/64; PULSE 94
[2024-07-15] MEDS: HYDROcodone/APAP 7.5-325MG 1 EACH TAB PO ONE (21:00)
== END 2024-07-15 23:50 | disposition home or self-care (01) ==
LOC: EC 18:00
DX: S83.91XA Sprain of unspecified site of right knee, initial encounter (principal); F17.200 Nicotine dependence, unspecified, uncomplicated; W22.8XXA Striking against or struck by other objects, initial encounter; Y99.0 Civilian activity done for income or pay
CPT/HCPCS: 73562; 71046; 99283; L1830 ×2